=== PATIENT | female | born 1990 | race Caucasian/White ===

== ENCOUNTER → 2016-05-12 | Outpatient (CLI) | payer OTHER ==
[~2016-05-12] MED LIST: /ONDA4TA PO; /ONDA4TA SL; ACET30TAB PO; ACET50TA PO; AMOX250S53 PO; ANUS2.5C2 TOP; CELE10TA PO; COLA100C PO; CYCL10TA PO; CYCL10TA3 PO; DICL50TA2 PO; EFFE37.527 PO; IMOD2TAB16 PO; KDUR PO; LAMI25TA PO; MACR100C3 PO; MAGN400T5 PO; METH-107 PO; MOM30SS PO; MOTR200T44 PO; NORCOBULK PO; PERC5TAB8 PO; PERC7.5T8 PO; PREN27TA3 PO; PROM125TA PR; SUMA50TA2 PO; TIZA4CAP3 PO; TRAM50TA2 PO; TYLE167L PO; TYLENOL #3 ELIXIR PO; [UNRECOGNIZED DRUG - OTHER] AU; tylenol #3 PO
--- NOTE | 2016-05-13 11:24 | REP ---
Left ankle four views : There is no fracture or dislocation. Mineralization and joint spaces are normal. There are no calcifications or foreign bodies. Impression: Negative left ankle . Signed by Josh Morris MD 05/12/2016 05:04 P
== END ==
LOC: M WUC 16:43
PROVIDERS: ATTEND Physician Assistant
DX: S93.422A Sprain of deltoid ligament of left ankle, initial encounter (principal); W18.30XA Fall on same level, unspecified, initial encounter; Y92.009 Unspecified place in unspecified non-institutional (private) residence as the place of occurrence of the external cause

== ENCOUNTER 2017-03-08 22:09 | Emergency (ER) | payer OTHER ==
[~2017-03-08] VITALS: Ht 167.6 cm; Wt 100.0 kg
[~2017-03-08 22:09] MED LIST changes: +ADVI200T PO; +BENA25CA4 PO; -COLA100C PO; +COLA100C5 PO; +KEFL250C11 PO; -METH-107 PO; +METH1TAB40 PO; +PRED20TA PO
[2017-03-09] MEDS ORDERED: predniSONE 20 MG TAB PO ONE (03:45)
[2017-03-09] MEDS: IPRATROPIUM 0.5MG/ALBUTEROL 2.5MG INH SOL UD 3ML (DUONEB)(J7620) NEB SCH (03:59)
[2017-03-09] MEDS ORDERED: AZIT-12 PO (05:40)
[2017-03-09] MEDS ORDERED: PRED20TA PO (05:41)
[2017-03-09] MEDS ORDERED: ALBUTEROL 90 MCG/ACT 8GM HFA INHALER INH ONE (05:45)
[2017-03-09] MEDS ORDERED: AZITHROMYCIN 250 MG TAB PO ONE (05:45)
[2017-03-09 06:02] VITALS: BP 149/86
== END 2017-03-09 06:05 | disposition home or self-care (01) ==
LOC: M ED 22:09
DX: J20.9 Acute bronchitis, unspecified (principal); F17.200 Nicotine dependence, unspecified, uncomplicated; Z88.8 Allergy status to other drugs, medicaments and biological substances; Z88.2 Allergy status to sulfonamides

== ENCOUNTER 2017-04-20 17:50 | Emergency (ER) | payer OTHER ==
[2017-04-20] MEDS: ACETAMINOPHEN 325 MG TAB PO ×2 (18:57)
[2017-04-20] MEDS: CEPHALEXIN 500 MG CAP PO ×2 (18:57)
== END 2017-04-20 19:04 | disposition home or self-care (01) ==
LOC: M ED 17:50
DX: S80.861A Insect bite (nonvenomous), right lower leg, initial encounter (principal); L03.115 Cellulitis of right lower limb; W57.XXXA Bitten or stung by nonvenomous insect and other nonvenomous arthropods, initial encounter; Y92.89 Other specified places as the place of occurrence of the external cause; Y93.89 Activity, other specified; Y99.8 Other external cause status; J45.909 Unspecified asthma, uncomplicated; F43.10 Post-traumatic stress disorder, unspecified; F17.210 Nicotine dependence, cigarettes, uncomplicated; Z88.2 Allergy status to sulfonamides; Z88.8 Allergy status to other drugs, medicaments and biological substances
CPT/HCPCS: 87186; 87205

== ENCOUNTER 2017-08-20 11:22 | Emergency (ER) | payer OTHER ==
[2017-08-20] MEDS: KETOROLAC 60 MG/2 ML VIAL (J1885) IM (12:15)
[2017-08-20] MEDS: NORCO, ANEXSIA 5/325MG TABLET (HYDROcodone/ACETAMINOPHEN) PO (12:16)
[2017-08-20] MEDS: METHOCARBAMOL 500 MG TAB PO (12:31)
== END 2017-08-20 12:38 | disposition home or self-care (01) ==
LOC: M ED 11:22
DX: S16.1XXA Strain of muscle, fascia and tendon at neck level, initial encounter (principal); X50.0XXA Overexertion from strenuous movement or load, initial encounter; Y92.89 Other specified places as the place of occurrence of the external cause; J45.909 Unspecified asthma, uncomplicated; F17.210 Nicotine dependence, cigarettes, uncomplicated; Z88.8 Allergy status to other drugs, medicaments and biological substances; Z88.2 Allergy status to sulfonamides
CPT/HCPCS: J1885

== ENCOUNTER 2017-09-17 21:47 | Emergency (ER) | payer OTHER ==
[2017-09-18] MEDS: OXYCODONE/APAP 5MG/325MG(BULK FOR ED) 1 TABLET PO (03:42)
== END 2017-09-18 03:47 | disposition home or self-care (01) ==
LOC: M ED 21:47
DX: S89.92XA Unspecified injury of left lower leg, initial encounter (principal); X50.1XXA Overexertion from prolonged static or awkward postures, initial encounter; Y92.39 Other specified sports and athletic area as the place of occurrence of the external cause; E66.9 Obesity, unspecified; Z88.2 Allergy status to sulfonamides; Z88.8 Allergy status to other drugs, medicaments and biological substances
CPT/HCPCS: 73564

== ENCOUNTER 2018-06-05 07:47 | Emergency (ER) | payer OTHER ==
[~2018-06-05] VITALS: Ht 172.7 cm; Wt 136.8 kg
[~2018-06-05 07:47] MED LIST changes: +ALBU17IN2 INH; +AZIT-12 PO; +CYCL10TA; +EFFE37.5 PO; -EFFE37.527 PO; +IBUP80TA PO; +KEFL500C17 PO; +NORCOTAB PO; +PERC5TAB12 PO; +ROBA500T PO; +TIZA4CAP PO; -TIZA4CAP3 PO; +TYLE325T5 PO
[2018-06-05] MEDS ORDERED: FLUO10TA2 PO (07:52)
[2018-06-05] MEDS ORDERED: MECLIZINE 25 MG TABLET PO ONE (08:15)
[2018-06-05] MEDS ORDERED: ONDANSETRON 4 MG ORAL DISINTEGRATING TAB (Q0162 PER 1MG) PO ONE (08:15)
[2018-06-05] MEDS ORDERED: diazePAM 2 MG TAB PO ONE (10:00)
[2018-06-05 10:37] VITALS: BP 111/58
[2018-06-05] MEDS ORDERED: ONDA4TAB6 PO (10:37)
[2018-06-05] MEDS ORDERED: MECL-68 PO (10:37)
== END 2018-06-05 10:43 | disposition home or self-care (01) ==
LOC: M ED 07:47
DX: H81.10 Benign paroxysmal vertigo, unspecified ear (principal); F32.9 Major depressive disorder, single episode, unspecified; F17.200 Nicotine dependence, unspecified, uncomplicated; Z88.8 Allergy status to other drugs, medicaments and biological substances; Z88.2 Allergy status to sulfonamides; Z79.899 Other long term (current) drug therapy
CPT/HCPCS: 81025; 99284; Q0162

== ENCOUNTER 2018-08-02 19:30 | Emergency (ER) | payer OTHER ==
[~2018-08-02] VITALS: Ht 167.6 cm; Wt 145.4 kg
[~2018-08-02 19:30] MED LIST changes: -/ONDA4TA PO; -/ONDA4TA SL; +ACET-716 PO; -ACET30TAB PO; -ACET50TA PO; +FLUO10TA2 PO; +HYDR-3715 PO; +MAPA500T17 PO; +MECL-68 PO; -NORCOTAB PO; +ONDA-1 PO; +ONDA-1 SL; +ONDA4TAB6 PO
[2018-08-02] MEDS ORDERED: TRAZ-160 (19:38)
[2018-08-02] MEDS ORDERED: hydrOXYzine 50 MG TAB PO STA (21:32)
[2018-08-02] MEDS ORDERED: methylPREDNISolone INJ 125 MG/2 ML VIAL (J2930) IM ONE (21:45)
[2018-08-02 21:54] LABS: BASO % 0.1 % (0.0-1.0); EOS # 0.1 10^3/uL (0.0-0.50); EOS % 1.8 % (0.0-3.0); LYMPH # 3.1 10^3/uL (1.5-6.5); MEAN CORPUSCULAR HEMOGLOBIN 29.4 pg (27.0-33.0); MEAN CORPUSCULAR HGB CONC 32.6 g/dl (32.0-36.5); MEAN CORPUSCULAR VOLUME 90.3 fl (80.0-96.0); MONO # 0.3 10^3/uL (0.0-0.8); MONO % 4.1 % (0.0-5.0); NEUTROPHILS # 4.2 10^3/uL (1.8-7.7); NEUTROPHILS % 53.7 % (36.0-66.0); PLATELET COUNT, AUTOMATED 260 10^3/uL (150-450); RED BLOOD COUNT 4.76 10^6/uL (4.00-5.40); WHITE BLOOD COUNT 7.8 10^3/uL (4.0-10.0)
[2018-08-02 22:18] LABS: ALBUMIN 3.6 GM/DL (3.2-5.2); ALT/SGPT 28 U/L (12-78); BILIRUBIN,DIRECT < 0.1 MG/DL (0.0-0.2); BILIRUBIN,TOTAL 0.3 MG/DL (0.2-1.0); BLOOD UREA NITROGEN 12 MG/DL (7-18); CALCIUM LEVEL 8.9 MG/DL (8.5-10.1); CARBON DIOXIDE LEVEL 25 MEQ/L (21-32); CHLORIDE LEVEL 109 MEQ/L (98-107); CREATININE FOR GFR 0.96 MG/DL (0.55-1.30); GLOMERULAR FILTRATION RATE > 60.0 (>60); GLUCOSE, FASTING 91 MG/DL (70-100); POTASSIUM SERUM 3.8 MEQ/L (3.5-5.1); SODIUM LEVEL 142 MEQ/L (136-145)
[2018-08-02] MEDS ORDERED: MEDR4PAK PO (22:48)
[2018-08-02] MEDS ORDERED: HYDR-3363 PO (22:48)
[2018-08-02 23:00] VITALS: BP 138/84
== END 2018-08-02 23:16 | disposition home or self-care (01) ==
LOC: M ED 19:30
DX: L29.9 Pruritus, unspecified (principal); Z79.899 Other long term (current) drug therapy; Z88.2 Allergy status to sulfonamides; Z88.8 Allergy status to other drugs, medicaments and biological substances
CPT/HCPCS: 80048; 80076; 85025; 96372; 99284; J2930

== ENCOUNTER 2018-09-29 10:17 | Emergency (ER) | payer OTHER ==
[~2018-09-29] VITALS: Ht 167.6 cm; Wt 128.2 kg
[~2018-09-29 10:17] MED LIST changes: +HYDR-3363 PO; +MEDR4PAK PO; +TRAZ-252
[2018-09-29] MEDS ORDERED: BUTA-198 (10:23)
[2018-09-29] MEDS ORDERED: SUMA100T2 (10:23)
[2018-09-29 11:18] LABS: BASO % 0.2 % (0.0-1.0); EOS # 0.2 10^3/uL (0.0-0.50); EOS % 2.1 % (0.0-3.0); HEMATOCRIT 42.2 % (36.0-47.0); HEMOGLOBIN 13.8 g/dl (12.0-15.5); LYMPH # 2.3 10^3/uL (1.5-6.5); LYMPH % 27.8 % (24.0-44.0); MEAN CORPUSCULAR HEMOGLOBIN 30.1 pg (27.0-33.0); MEAN CORPUSCULAR HGB CONC 32.7 g/dl (32.0-36.5); MEAN CORPUSCULAR VOLUME 91.9 fl (80.0-96.0); MONO # 0.3 10^3/uL (0.0-0.8); MONO % 3.7 % (0.0-5.0); NEUTROPHILS # 5.4 10^3/uL (1.8-7.7); PLATELET COUNT, AUTOMATED 288 10^3/uL (150-450); RED BLOOD COUNT 4.59 10^6/uL (4.00-5.40); WHITE BLOOD COUNT 8.2 10^3/uL (4.0-10.0)
[2018-09-29] MEDS ORDERED: ONDANSETRON 4MG/2ML VIAL (J2405) IV ONE (11:30)
[2018-09-29] MEDS ORDERED: KETOROLAC 30 MG/ML VIAL (J1885) IV ONE (11:30)
[2018-09-29 11:57] LABS: ALBUMIN 3.7 GM/DL (3.2-5.2); ALT/SGPT 38 U/L (12-78); BILIRUBIN,DIRECT < 0.1 MG/DL (0.0-0.2); BILIRUBIN,TOTAL 0.3 MG/DL (0.2-1.0); BLOOD UREA NITROGEN 9 MG/DL (7-18); CALCIUM LEVEL 9.2 MG/DL (8.5-10.1); CARBON DIOXIDE LEVEL 24 MEQ/L (21-32); CHLORIDE LEVEL 109 MEQ/L (98-107); CREATININE FOR GFR 0.88 MG/DL (0.55-1.30); GLOMERULAR FILTRATION RATE > 60.0 (>60); GLUCOSE, FASTING 86 MG/DL (70-100); LIPASE 81 U/L (73-393); SODIUM LEVEL 139 MEQ/L (136-145); TOTAL PROTEIN 7.5 GM/DL (6.4-8.2)
[2018-09-29 13:06] VITALS: BP 135/80
--- NOTE | 2018-09-29 13:32 | REP ---
PELVIC ULTRASOUND: Real-time sonographic evaluation of pelvis performed utilizing transabdominal and endovaginal technique. Bladder measures 2.5 x 4.9 x 4.0 cm. Uterus measures 8.8 x 4.7 x 5.5 cm. Endometrial thickness is 5 mm. There is no endometrial fluid collection. The ovaries are normal in size and echotexture, right ovary measuring 2.1 x 1.5 x 1.7 cm, and left ovary 2.4 x 1.9 x 2.1 cm. There is no adnexal mass or free fluid. There is no torsion of either ovary, RI right ovary 0.50 and left ovary 0.45. IMPRESSION: Negative pelvic ultrasound with no evidence of adnexal mass, free fluid, or torsion. Electronically Signed by Josh Boyd MD 09/29/2018 04:32 P
== END 2018-09-29 13:06 | disposition home or self-care (01) ==
LOC: M ED 10:17
DX: N94.6 Dysmenorrhea, unspecified (principal); N92.0 Excessive and frequent menstruation with regular cycle; F17.210 Nicotine dependence, cigarettes, uncomplicated; Z87.42 Personal history of other diseases of the female genital tract; Z87.440 Personal history of urinary (tract) infections; Z88.2 Allergy status to sulfonamides; Z88.8 Allergy status to other drugs, medicaments and biological substances; Z90.49 Acquired absence of other specified parts of digestive tract; Z90.89 Acquired absence of other organs
CPT/HCPCS: 36415; 76830; 76856; 80048; 80076; 81001; 83690; 84702; 85025; 93976; 96374; 96375; 99284; J1885; J2405

== ENCOUNTER 2018-10-10 11:49 | Emergency (ER) | payer OTHER ==
[~2018-10-10] VITALS: Ht 167.6 cm; Wt 141.8 kg
[~2018-10-10 11:49] MED LIST changes: +BUTA-198; +SUMA100T2
[2018-10-10] MEDS ORDERED: diazePAM 5 MG TAB PO ONE (12:30)
[2018-10-10] MEDS ORDERED: methylPREDNISolone INJ 125 MG/2 ML VIAL (J2930) IM ONE (12:30)
[2018-10-10] MEDS ORDERED: KETOROLAC 30 MG/ML VIAL (J1885) IM ONE (12:30)
[2018-10-10] MEDS ORDERED: LIDOCAINE 5% (LIDODERM) PATCH TD ONE (12:30)
[2018-10-10] MEDS ORDERED: ACETAMINOPHEN 500 MG TAB PO ONE (12:30)
[2018-10-10] MEDS ORDERED: LIDO5DIS41 TOP (13:38)
[2018-10-10] MEDS ORDERED: VALI5TAB PO (13:38)
[2018-10-10] MEDS ORDERED: MEDR4PAK PO (13:38)
[2018-10-10 14:00] VITALS: BP 131/71
== END 2018-10-10 14:01 | disposition home or self-care (01) ==
LOC: M ED 11:49
DX: M51.27 Other intervertebral disc displacement, lumbosacral region (principal); M54.32 Sciatica, left side; F43.10 Post-traumatic stress disorder, unspecified; G43.909 Migraine, unspecified, not intractable, without status migrainosus; Z88.2 Allergy status to sulfonamides; Z88.1 Allergy status to other antibiotic agents; Z88.8 Allergy status to other drugs, medicaments and biological substances
CPT/HCPCS: 96372; 99283; J1885; J2930

== ENCOUNTER 2018-11-23 17:12 | Emergency (ER) | payer OTHER ==
[~2018-11-23] VITALS: Ht 167.6 cm; Wt 140.0 kg
[~2018-11-23 17:12] MED LIST changes: +LIDO5DIS41 TOP; +VALI5TAB PO
[2018-11-23] MEDS ORDERED: ESCI20TA (17:22)
[2018-11-23] MEDS ORDERED: diphenhydrAMINE INJ 50MG/ML VIAL (J1200) IV ONE (20:00)
[2018-11-23] MEDS ORDERED: ONDANSETRON 4MG/2ML VIAL (J2405) IV ONE (20:00)
[2018-11-23] MEDS ORDERED: NS 1,000 ML IV ONE (20:00)
[2018-11-23] MEDS ORDERED: KETOROLAC 30 MG/ML VIAL (J1885) IV ONE (20:00)
[2018-11-23 21:03] LABS: BASO % 0.3 % (0.0-1.0); EOS # 0.2 10^3/uL (0.0-0.50); EOS % 2.5 % (0.0-3.0); HEMATOCRIT 40.9 % (36.0-47.0); HEMOGLOBIN 13.3 g/dl (12.0-15.5); LYMPH # 3.6 10^3/uL (1.5-6.5); LYMPH % 38.1 % (24.0-44.0); MEAN CORPUSCULAR HEMOGLOBIN 29.4 pg (27.0-33.0); MEAN CORPUSCULAR HGB CONC 32.5 g/dl (32.0-36.5); MEAN CORPUSCULAR VOLUME 90.5 fl (80.0-96.0); MONO # 0.5 10^3/uL (0.0-0.8); MONO % 4.8 % (0.0-5.0); NEUTROPHILS # 5.1 10^3/uL (1.8-7.7); NEUTROPHILS % 54.1 % (36.0-66.0); PLATELET COUNT, AUTOMATED 241 10^3/uL (150-450); RED BLOOD COUNT 4.52 10^6/uL (4.00-5.40); WHITE BLOOD COUNT 9.5 10^3/uL (4.0-10.0)
[2018-11-23 21:27] LABS: BLOOD UREA NITROGEN 8 MG/DL (7-18); CALCIUM LEVEL 9.8 MG/DL (8.5-10.1); CARBON DIOXIDE LEVEL 25 MEQ/L (21-32); CHLORIDE LEVEL 110 MEQ/L (98-107); CREATININE FOR GFR 0.92 MG/DL (0.55-1.30); FREE T4 0.89 NG/DL (0.76-1.46); GLOMERULAR FILTRATION RATE > 60.0 (>60); GLUCOSE, FASTING 77 MG/DL (70-100); MAGNESIUM LEVEL 2.4 MG/DL (1.8-2.4); SODIUM LEVEL 142 MEQ/L (136-145)
--- NOTE | 2018-11-23 21:48 | REPVR ---
EXAM: CT Head Without Contrast EXAM DATE/TIME: 11/23/2018 8:31 PM CLINICAL HISTORY: 28 years old, female; Pain; Headache; Additional info: Severe headache/vision changes TECHNIQUE: Imaging protocol: Computed tomography images of the head without contrast. Radiation optimization: All CT scans at this facility use at least one of these dose optimization techniques: automated exposure control; mA and/or kV adjustment per patient size (includes targeted exams where dose is matched to clinical indication); or iterative reconstruction. COMPARISON: CT Head without contrast 04/02/2013 5:20 PM FINDINGS: Brain: The white-martin differentiation is preserved demonstrating no acute territorial type infarct. No acute intracranial hemorrhage is seen. No intracranial mass effect. Midline shift: There is no midline shift. Ventricles: No ventriculomegaly. Bones/joints: The calvarium demonstrates no evidence for a depressed fracture. Sinuses: Minimal mucosal thickening of a few ethmoid air cells. Mastoid air cells: Minimal mucosal thickening/effusion within right mastoid air cells inferiorly. Orbits: The optic nerves have mildly increased in diameter compared to the prior study. The right optic nerve measures 6-7 mm. This can be contributed by an increase in fluid within the optic nerve sheath. Soft tissues: Unremarkable. IMPRESSION: 1. No acute intracranial hemorrhage or acute territorial type infarct. 2. The optic nerves have mildly increased in diameter compared to the prior study. MRI of the orbits with/without contrast is suggested. 3. Additional findings described above. Electronically signed by: Trevon Torres On 11/23/2018 21:48:35 PM
[2018-11-23 22:29] LABS: C REACTIVE PROTEIN QUANTITATIV 1.14 MG/DL (0.00-0.30)
[2018-11-23 22:48] LABS: ERYTHROCYTE SEDIMENTATION RATE 4 mm/hr (0-20)
[2018-11-24 02:52] VITALS: BP 22/60
[2018-11-24] MEDS ORDERED: NORCO, ANEXSIA 5/325MG TABLET (HYDROcodone/ACETAMINOPHEN) PO ONE (03:00)
== END 2018-11-24 02:56 | disposition short-term general hospital (02) ==
LOC: M ED 17:12
DX: R51 Headache (principal); H54.511A Low vision right eye category 1, normal vision left eye; G43.909 Migraine, unspecified, not intractable, without status migrainosus; F43.10 Post-traumatic stress disorder, unspecified; F41.9 Anxiety disorder, unspecified; F32.9 Major depressive disorder, single episode, unspecified; Z79.899 Other long term (current) drug therapy; Z88.2 Allergy status to sulfonamides; Z88.8 Allergy status to other drugs, medicaments and biological substances
CPT/HCPCS: 70450; 80048; 81001; 83735; 84439; 84443; 85025; 85652; 86140; 96374; 96375; 99284; J1200; J1885; J2405

== ENCOUNTER → 2019-04-02 | Outpatient (CLI) | payer OTHER ==
[~2019-04-02] MED LIST changes: -ALBU17IN2 INH; +ESCI20TA; +PROHANCE 279.3MG/ML 15ML VIAL (A9576) As Ordered ONE; +PROHANCE 279.3MG/ML 5ML VIAL (A9576) As Ordered ONE; +PROV108A INH
--- NOTE | 2019-04-02 16:58 | REP ---
MRI brain: 04/02/2019. Indication: Optic neuritis. Headache. Comparison: No previous MRI brain studies are available for direct comparison. Technique: Multiplanar short and long TR sequences of the brain were performed including IV Gadolinium imaging. 20 ml of IV ProHance were administered. Findings: There are no areas of restricted diffusion. There is no intracranial mass effect, hydrocephalus or significant hemorrhage. No significant signal abnormalities are present within the brainstem or brain parenchyma. The large intracranial flow voids are unremarkable. No significant fluid is present within the paranasal sinuses or mastoid air cells. The midline structures, and craniocervical junction are unremarkable. Impression: No acute intracranial process. Unremarkable brain. Electronically Signed by Mohan Sanderson DO 04/02/2019 04:50 P
== END ==
LOC: M RAD 14:39
PROVIDERS: ATTEND Nurse Practitioner Family
DX: G43.009 Migraine without aura, not intractable, without status migrainosus (principal); F41.1 Generalized anxiety disorder; G47.09 Other insomnia; H46.8 Other optic neuritis
CPT/HCPCS: 70553; A9576

== ENCOUNTER 2019-05-18 10:48 | Emergency (ER) | payer OTHER ==
[~2019-05-18] VITALS: Ht 167.6 cm; Wt 143.6 kg
[~2019-05-18 10:48] MED LIST changes: -MECL-68 PO; +MECL1TAB31 PO; -PROHANCE 279.3MG/ML 15ML VIAL (A9576) As Ordered ONE; -PROHANCE 279.3MG/ML 5ML VIAL (A9576) As Ordered ONE
[2019-05-18] MEDS ORDERED: KETOROLAC 30 MG/ML VIAL (J1885) IV ONE (12:00)
[2019-05-18] MEDS ORDERED: ONDANSETRON 4MG/2ML VIAL (J2405) IV ONE (12:00)
[2019-05-18] MEDS ORDERED: PERCOCET 5MG/325MG TAB PO ONE (13:30)
[2019-05-18 13:31] LABS: BASO % 0.3 % (0.0-1.0); EOS # 0.2 10^3/uL (0.0-0.5); EOS % 2.3 % (0.0-3.0); HEMATOCRIT 46.3 % (36.0-47.0); HEMOGLOBIN 14.5 g/dl (12.0-15.5); LYMPH # 2.2 10^3/uL (1.5-5.0); LYMPH % 29.3 % (24.0-44.0); MEAN CORPUSCULAR HEMOGLOBIN 29.1 pg (27.0-33.0); MEAN CORPUSCULAR HGB CONC 31.3 g/dl (32.0-36.5); MEAN CORPUSCULAR VOLUME 92.8 fl (80.0-96.0); MONO # 0.3 10^3/uL (0.0-0.8); MONO % 4.6 % (0.0-5.0); NEUTROPHILS # 4.7 10^3/uL (1.5-8.5); NEUTROPHILS % 63.1 % (36.0-66.0); PLATELET COUNT, AUTOMATED 283 10^3/uL (150-450); RED BLOOD COUNT 4.99 10^6/uL (4.00-5.40); WHITE BLOOD COUNT 7.5 10^3/uL (4.0-10.0)
[2019-05-18 13:41] LABS: BLOOD UREA NITROGEN 8 MG/DL (7-18); C REACTIVE PROTEIN QUANTITATIV 0.85 MG/DL (0.00-0.30); CALCIUM LEVEL 9.1 MG/DL (8.5-10.1); CARBON DIOXIDE LEVEL 26 MEQ/L (21-32); CHLORIDE LEVEL 109 MEQ/L (98-107); CREATININE FOR GFR 0.68 MG/DL (0.55-1.30); GLOMERULAR FILTRATION RATE > 60.0 (>60); GLUCOSE, FASTING 82 MG/DL (70-100); POTASSIUM SERUM 4.1 MEQ/L (3.5-5.1); SODIUM LEVEL 139 MEQ/L (136-145)
[2019-05-18 14:09] LABS: ERYTHROCYTE SEDIMENTATION RATE 6 mm/hr (0-20)
[2019-05-18] MEDS ORDERED: PERC5TAB12 PO (14:26)
[2019-05-18] MEDS ORDERED: methylPREDNISolone 1,000 MG, VIAL MATE ADAPTER 1 EACH in D5W 250 ML IV ONE (14:30)
[2019-05-18 16:22] VITALS: BP 128/71
== END 2019-05-18 16:23 | disposition home or self-care (01) ==
LOC: M ED 10:48
DX: H46.9 Unspecified optic neuritis (principal); Z79.899 Other long term (current) drug therapy; Z88.2 Allergy status to sulfonamides; Z88.8 Allergy status to other drugs, medicaments and biological substances
CPT/HCPCS: 80048; 85025; 85652; 86140; 96365; 96375; 99284; J1885; J2405; J2930

== ENCOUNTER 2019-05-23 04:13 | Emergency (ER) | payer OTHER ==
[~2019-05-23] VITALS: Ht 167.6 cm; Wt 141.8 kg
[2019-05-23 04:52] LABS: HEMATOCRIT 46.2 % (36.0-47.0); HEMOGLOBIN 14.7 g/dl (12.0-15.5); MEAN CORPUSCULAR HEMOGLOBIN 28.8 pg (27.0-33.0); MEAN CORPUSCULAR HGB CONC 31.8 g/dl (32.0-36.5); MEAN CORPUSCULAR VOLUME 90.6 fl (80.0-96.0); PLATELET COUNT, AUTOMATED 264 10^3/uL (150-450); WHITE BLOOD COUNT 9.9 10^3/uL (4.0-10.0)
[2019-05-23 05:21] LABS: ALBUMIN 3.6 GM/DL (3.2-5.2); ALT/SGPT 31 U/L (12-78); BILIRUBIN,TOTAL 0.4 MG/DL (0.2-1.0); BLOOD UREA NITROGEN 12 MG/DL (7-18); CARBON DIOXIDE LEVEL 24 MEQ/L (21-32); CHLORIDE LEVEL 107 MEQ/L (98-107); CREATININE FOR GFR 0.83 MG/DL (0.55-1.30); GLOMERULAR FILTRATION RATE > 60.0 (>60); GLUCOSE, FASTING 94 MG/DL (70-100); POTASSIUM SERUM 4.1 MEQ/L (3.5-5.1); SODIUM LEVEL 140 MEQ/L (136-145); TOTAL PROTEIN 7.4 GM/DL (6.4-8.2)
[2019-05-23] MEDS ORDERED: IBUPROFEN 800 MG TAB PO ONE (07:30)
[2019-05-23] MEDS ORDERED: IPRATROPIUM 0.5MG/ALBUTEROL 2.5MG INH SOL UD 3ML (DUONEB)(J7620) NEB ONE (07:30)
--- NOTE | 2019-05-23 08:43 | REP ---
Clinical: Shortness of breath Comparison: None . Technique: PA and lateral. Findings: The mediastinum and cardiac silhouette are normal. The lung donnelly are clear and without acute consolidation, effusion, or pneumothorax. The skeletal structures are intact and normal. Impression: 1. No acute cardiopulmonary process. Electronically Signed by Romain Scott MD 05/23/2019 08:35 A
[2019-05-23 09:30] VITALS: BP 119/64
== END 2019-05-23 09:44 | disposition home or self-care (01) ==
LOC: M ED 04:13
DX: J11.1 Influenza due to unidentified influenza virus with other respiratory manifestations (principal); J45.909 Unspecified asthma, uncomplicated; F17.210 Nicotine dependence, cigarettes, uncomplicated; Z88.2 Allergy status to sulfonamides; Z88.8 Allergy status to other drugs, medicaments and biological substances; Z79.899 Other long term (current) drug therapy

== ENCOUNTER → 2019-06-16 | Outpatient (CLI) | payer OTHER ==
[~2019-06-16] MED LIST changes: +ACETAMINOPHEN 325 MG TAB As Ordered ONE; +ACETAMINOPHEN 325 MG TAB PO PRN; +ACETAMINOPHEN TAB 650MG DOSE (2X325MG) PO PRN; +DICL50TAB FT; +LIDOCAINE 1% MDV 20ML VIAL As Ordered ONE
[2019-06-16 12:01] LABS: INR 1.01
[2019-06-16 12:02] LABS: PARTIAL THROMBOPLASTIN TIME 34.2 SECONDS (25.0-38.4)
--- NOTE | 2019-06-16 14:09 | REP ---
Lumbar puncture under fluoroscopic guidance. The procedure was performed by KYLEE Angel, under the direct supervision of Dr. Page. Procedure: The risks and benefits of the procedure were explained to the patient and informed consent was obtained both verbally and written. Directly prior to the start of the procedure, a formal timeout was completed in the procedure room. The patient was placed prone on the fluoroscopy table. The L3-4 interspinous level was localized and confirmed fluoroscopically, and the skin was marked dorsally at this level. The skin was prepped and draped in the usual sterile fashion. 5 mL of 1% lidocaine 10 mg/ml was utilized for local anesthetic. An 22 gauge 7 inch spinal needle was advanced without significant difficulty into the cerebrospinal space at the L 3-4 interspinous level. Clear freely flowing cerebrospinal fluid was retrieved and sent to the laboratory for analysis. Initial opening pressure measured by manometry at 42 cm of water. A total of approximately 13 ml of cerebrospinal fluid was withdrawn gently and submitted to the lab for routine analysis. The patient tolerated the procedure well and there were no immediate complications. 0.3 minutes of fluoroscopy time was utilized for this procedure. Reviewed by KYLEE Arzate 06/16/2019 01:59 P Electronically Signed by Tuan Page MD 06/16/2019 01:59 P
[2019-06-16 14:30] VITALS: BP 148/72
[2019-06-16 15:32] LABS: CSF TUBE# GLU TUBE 1; CSF TUBE# TP TUBE 1; GLUCOSE CSF 56 MG/DL (40-75); TOTAL PROTEIN,CSF 27 MG/DL (15-45)
[2019-06-16 15:37] LABS: SOURCE, BODY FLUID ALBUMIN OTHER
[2019-06-16 15:57] LABS: APPEARANCE, CSF CLEAR (CLEAR); COLOR, CSF COLORLESS (COLORLESS); CSF TUBE# CELL CNT TUBE 1
[2019-06-21 14:10] LABS: IMMUNOGLOBULIN M CSF <0.01 mg/dL (0.00-0.26)
== END ==
LOC: M IRPRO 11:08
PROVIDERS: ATTEND Psychiatry & Neurology Neurology
DX: H47.11 Papilledema associated with increased intracranial pressure (principal); G93.2 Benign intracranial hypertension

== ENCOUNTER 2019-08-19 14:13 | Emergency (ER) | payer OTHER ==
[~2019-08-19] VITALS: Ht 167.6 cm; Wt 143.5 kg
[~2019-08-19 14:13] MED LIST changes: -ACETAMINOPHEN 325 MG TAB As Ordered ONE; -ACETAMINOPHEN 325 MG TAB PO PRN; -ACETAMINOPHEN TAB 650MG DOSE (2X325MG) PO PRN; +CYCL-707; +CYCL-707 PO; -CYCL10TA; -CYCL10TA PO; -LIDOCAINE 1% MDV 20ML VIAL As Ordered ONE
[2019-08-19] MEDS ORDERED: ACET50CA PO (14:21)
[2019-08-19 15:45] VITALS: BP 127/68
== END 2019-08-19 15:50 | disposition home or self-care (01) ==
LOC: M ED 14:13
DX: H43.391 Other vitreous opacities, right eye (principal); H46.9 Unspecified optic neuritis; G43.909 Migraine, unspecified, not intractable, without status migrainosus; J45.909 Unspecified asthma, uncomplicated; F43.10 Post-traumatic stress disorder, unspecified; F41.9 Anxiety disorder, unspecified; Z88.2 Allergy status to sulfonamides; Z88.8 Allergy status to other drugs, medicaments and biological substances

== ENCOUNTER → 2019-09-30 | Outpatient (REF) | payer OTHER, MEDICAID ==
[~2019-09-30] MED LIST changes: +ACET50CA PO
[2019-09-30 11:33] LABS: BASO % 0.3 % (0.0-1.0); EOS # 0.5 10^3/uL (0.0-0.5); EOS % 7.4 % (0.0-3.0); HEMATOCRIT 42.7 % (36.0-47.0); HEMOGLOBIN 13.9 g/dl (12.0-15.5); LYMPH # 2.4 10^3/uL (1.5-5.0); LYMPH % 37.5 % (24.0-44.0); MEAN CORPUSCULAR HEMOGLOBIN 29.8 pg (27.0-33.0); MEAN CORPUSCULAR HGB CONC 32.6 g/dl (32.0-36.5); MEAN CORPUSCULAR VOLUME 91.6 fl (80.0-96.0); MONO # 0.4 10^3/uL (0.0-0.8); MONO % 6.3 % (0.0-5.0); NEUTROPHILS # 3.1 10^3/uL (1.5-8.5); NEUTROPHILS % 48.2 % (36.0-66.0); PLATELET COUNT, AUTOMATED 259 10^3/uL (150-450); RED BLOOD COUNT 4.66 10^6/uL (4.00-5.40); WHITE BLOOD COUNT 6.5 10^3/uL (4.0-10.0)
[2019-09-30 17:57] LABS: ALBUMIN 3.5 GM/DL (3.2-5.2); ALT/SGPT 24 U/L (12-78); BILIRUBIN,TOTAL 0.5 MG/DL (0.2-1.0); BLOOD UREA NITROGEN 8 MG/DL (7-18); CALCIUM LEVEL 8.8 MG/DL (8.5-10.1); CARBON DIOXIDE LEVEL 25 MEQ/L (21-32); CHLORIDE LEVEL 110 MEQ/L (98-107); CHOLESTEROL LEVEL 145 MG/DL (<200); CREATININE FOR GFR 0.77 MG/DL (0.55-1.30); FREE T4 1.06 NG/DL (0.76-1.46); GLOMERULAR FILTRATION RATE > 60.0 (>60); GLUCOSE, FASTING 103 MG/DL (70-100); HDL CHOLESTEROL 50 MG/DL (>40); LDL CHOLESTEROL 85 MG/DL (<100); NON-HDL-C 95 MG/DL; POTASSIUM SERUM 3.9 MEQ/L (3.5-5.1); SODIUM LEVEL 142 MEQ/L (136-145); TOTAL PROTEIN 6.5 GM/DL (6.4-8.2); TRIGLYCERIDES LEVEL 49 MG/DL (<150)
[2019-10-01 17:51] LABS: TOTAL 25(OH) VITAMIN D 25.1 NG/ML (30.0-100.0)
== END ==
LOC: M LAB REF 11:09
PROVIDERS: ATTEND Physician Assistant
DX: Z13.9 Encounter for screening, unspecified (principal); Z68.42 Body mass index [BMI] 45.0-49.9, adult; H46.8 Other optic neuritis; F41.9 Anxiety disorder, unspecified; J45.909 Unspecified asthma, uncomplicated; G47.00 Insomnia, unspecified; E66.09 Other obesity due to excess calories; R03.0 Elevated blood-pressure reading, without diagnosis of hypertension; E55.9 Vitamin D deficiency, unspecified

== ENCOUNTER → 2019-11-10 | Outpatient (CLI) | payer OTHER ==
[2020-01-31 14:54] LABS: GLUCOSE, FASTING SEE SEPARATE REPORT
== END ==
LOC: M LAB 10:00
PROVIDERS: ATTEND Physician Assistant
DX: R60.1 Generalized edema (principal)

== ENCOUNTER 2019-11-19 17:50 | Emergency (ER) | payer OTHER ==
[2019-11-19] MEDS ORDERED: ONDANSETRON 4MG/2ML VIAL ONE (17:51)
[2019-11-19] MEDS ORDERED: MORPHINE 4 MG/ML 1ML VIAL/SYRINGE (J2270) ONE (17:51)
[2019-11-19] MEDS ORDERED: ONDANSETRON 4MG/2ML VIAL As Ordered ONE (17:56)
[2019-11-19] MEDS ORDERED: MORPHINE 4 MG/ML 1ML VIAL/SYRINGE (J2270) As Ordered ONE (17:56)
[2020-01-02 16:33] LABS: BASO % 0.1 % (0.0-1.0); EOS # 0.2 10^3/uL (0.0-0.5); EOS % 2.2 % (0.0-3.0); HEMOGLOBIN 14.1 g/dl (12.0-15.5); LYMPH # 2.3 10^3/uL (1.5-5.0); LYMPH % 27.7 % (24.0-44.0); MEAN CORPUSCULAR HEMOGLOBIN 29.5 pg (27.0-33.0); MEAN CORPUSCULAR VOLUME 92.1 fl (80.0-96.0); MONO # 0.4 10^3/uL (0.0-0.8); MONO % 4.2 % (0.0-5.0); NEUTROPHILS # 5.4 10^3/uL (1.5-8.5); NEUTROPHILS % 65.6 % (36.0-66.0); PLATELET COUNT, AUTOMATED 233 10^3/uL (150-450); RED BLOOD COUNT 4.78 10^6/uL (4.00-5.40); WHITE BLOOD COUNT 8.3 10^3/uL (4.0-10.0)
[2020-01-02 20:41] LABS: APPEARANCE, URINE HAZY (CLEAR); BACTERIA, URINE AUTO NEGATIVE (NEGATIVE); BILIRUBIN, URINE AUTO NEGATIVE (NEGATIVE); BLOOD, URINE BLOOD NEGATIVE (NEGATIVE); COLOR, URINE YELLOW (YELLOW); GLUCOSE, URINE (UA) AUTO NEGATIVE (NEGATIVE); KETONE, URINE AUTO NEGATIVE (NEGATIVE); LEUKOCYTE ESTERASE, URINE AUTO NEGATIVE (NEGATIVE); MUCUS, URINE LARGE (NEGATIVE); NITRITE, URINE AUTO NEGATIVE (NEGATIVE); PROTEIN, URINE AUTO NEGATIVE (NEGATIVE); RBC, URINE AUTO 4 /HPF (0-3); SPECIFIC GRAVITY URINE AUTO 1.026 (1.002-1.035); SQUAMOUS EPITHELIAL CELL UR AU 2 /HPF (0-6); UROBILINOGEN, URINE AUTO 0.2 mg/dL (0.0-2.0); WBC, URINE AUTO 21 /HPF (0-3)
[2020-02-07 12:38] LABS: ALBUMIN 3.8 GM/DL (3.2-5.2); ALT/SGPT 21 U/L (12-78); BILIRUBIN,DIRECT 0.1 MG/DL (0.0-0.2); BILIRUBIN,TOTAL 0.5 MG/DL (0.2-1.0); BLOOD UREA NITROGEN 6 MG/DL (7-18); CALCIUM LEVEL 9.3 MG/DL (8.5-10.1); CARBON DIOXIDE LEVEL 26 MEQ/L (21-32); CHLORIDE LEVEL 109 MEQ/L (98-107); CREATININE FOR GFR 0.78 MG/DL (0.55-1.30); GLOMERULAR FILTRATION RATE > 60.0 (>60); GLUCOSE, FASTING 78 MG/DL (70-100); LIPASE 57 U/L (73-393); POTASSIUM SERUM 4.1 MEQ/L (3.5-5.1); SODIUM LEVEL 140 MEQ/L (136-145); TOTAL PROTEIN 7.2 GM/DL (6.4-8.2)
[2020-02-07 12:49] LABS: HCG, SERUM QUALITATIVE NEGATIVE (NEGATIVE)
== END 2019-11-19 20:24 | disposition home or self-care (01) ==
LOC: M ED 17:50
DX: R10.2 Pelvic and perineal pain (principal); J45.909 Unspecified asthma, uncomplicated; G93.2 Benign intracranial hypertension
CPT/HCPCS: 76830; 76856; 80048; 80076; 81001; 83690; 84703; 85025; 93976; 96374; 96375; 99284; J2270; J2405

== ENCOUNTER → 2020-02-15 | Outpatient (REF) | payer OTHER ==
[2020-02-15 17:29] LABS: BLOOD UREA NITROGEN 7 MG/DL (7-18); CALCIUM LEVEL 9.7 MG/DL (8.5-10.1); CARBON DIOXIDE LEVEL 21 MEQ/L (21-32); CHLORIDE LEVEL 112 MEQ/L (98-107); CREATININE FOR GFR 0.78 MG/DL (0.55-1.30); GLOMERULAR FILTRATION RATE > 60.0 (>60); GLUCOSE, FASTING 83 MG/DL (70-100); POTASSIUM SERUM 4.7 MEQ/L (3.5-5.1); SODIUM LEVEL 139 MEQ/L (136-145)
[2020-02-15 17:39] LABS: TOTAL 25(OH) VITAMIN D 22.5 NG/ML (30.0-100.0)
[2020-02-15 22:35] LABS: HEMOGLOBIN A1c 5.2 %
== END ==
LOC: M LAB REF 16:23
PROVIDERS: ATTEND Physician Assistant
DX: R73.01 Impaired fasting glucose (principal); E55.9 Vitamin D deficiency, unspecified

== ENCOUNTER 2020-04-02 16:39 | Emergency (ER) | payer OTHER ==
[~2020-04-02] VITALS: Ht 167.6 cm; Wt 133.6 kg
[2020-04-02] MEDS ORDERED: HYDR-3713 (17:08)
[2020-04-02] MEDS ORDERED: ZOLP5TAB (17:08)
[2020-04-02] MEDS ORDERED: ALBU83IN (17:08)
[2020-04-02] MEDS ORDERED: ALBU8.5H (17:08)
[2020-04-02] MEDS ORDERED: ONDA4TAB6 (17:08)
[2020-04-02] MEDS ORDERED: METOCLOPRAMIDE INJ 10MG/2ML VIAL (J2765 PER 1) IV ONE (17:15)
[2020-04-02] MEDS ORDERED: KETOROLAC 30 MG/ML 1ML VIAL IM ONE (17:15)
[2020-04-02] MEDS ORDERED: PROCHLORPERAZINE 10MG/2ML VIAL (J0780 PER 1) IV ONE (17:15)
[2020-04-02] MEDS ORDERED: KETOROLAC 30 MG/ML 1ML VIAL IV ONE (17:30)
[2020-04-02 17:34] LABS: BASO % 0.3 % (0.0-1.0); EOS # 0.4 10^3/uL (0.0-0.5); EOS % 5.2 % (0.0-3.0); HEMATOCRIT 43.4 % (36.0-47.0); HEMOGLOBIN 13.8 g/dl (12.0-15.5); LYMPH # 2.3 10^3/uL (1.5-5.0); LYMPH % 31.3 % (24.0-44.0); MEAN CORPUSCULAR HEMOGLOBIN 29.5 pg (27.0-33.0); MEAN CORPUSCULAR HGB CONC 31.8 g/dl (32.0-36.5); MEAN CORPUSCULAR VOLUME 92.7 fl (80.0-96.0); MONO # 0.4 10^3/uL (0.0-0.8); NEUTROPHILS # 4.2 10^3/uL (1.5-8.5); NEUTROPHILS % 57.9 % (36.0-66.0); PLATELET COUNT, AUTOMATED 274 10^3/uL (150-450); RED BLOOD COUNT 4.68 10^6/uL (4.00-5.40); WHITE BLOOD COUNT 7.2 10^3/uL (4.0-10.0)
[2020-04-02 18:23] LABS: BLOOD UREA NITROGEN 6 MG/DL (7-18); CREATININE FOR GFR 0.76 MG/DL (0.55-1.30); GLOMERULAR FILTRATION RATE > 60.0 (>60); GLUCOSE, FASTING 86 MG/DL (70-100)
[2020-04-02 18:25] LABS: ALT/SGPT 20 IU/L (0-32); BILIRUBIN,TOTAL 0.5 MG/DL (0.2-1.0); CALCIUM LEVEL 8.9 MG/DL (8.5-10.1); CARBON DIOXIDE LEVEL 24 mmol/L (20-29); CHLORIDE LEVEL 109 MEQ/L (98-107); SODIUM LEVEL 142 MEQ/L (136-145)
[2020-04-02 18:26] LABS: BILIRUBIN,DIRECT 0.2 MG/DL (0.0-0.2)
[2020-04-02 18:27] LABS: ACETAMINOPHEN LEVEL 2.9 UG/ML (10.0-30.0); ALBUMIN 3.5 GM/DL (3.2-5.2); ETHYL ALCOHOL (ETHANOL) < 0.003 % (0.000-0.010); SALICYLATE LEVEL 3.3 MG/DL (5.0-30.0); TOTAL PROTEIN 6.7 GM/DL (6.4-8.2)
[2020-04-02 18:28] LABS: C REACTIVE PROTEIN QUANTITATIV 0.71 MG/DL (0.00-0.30); THYROID STIMULATING HORMONE 0.723 uIU/ML (0.358-3.740)
[2020-04-02] MEDS ORDERED: dexameTHASONE 4 MG/ML 1ML VIAL (J1100 PER 1MG) IV ONE (19:00)
[2020-04-02] MEDS ORDERED: MAG SULF 1GM/100ML (MAG RUN) 1 GM in IV 1 EA IV ONE (19:00)
--- NOTE | 2020-04-02 19:08 | ECGEPIP ---
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
[2020-04-02 19:36] LABS: ERYTHROCYTE SEDIMENTATION RATE 3 mm/hr (0-20)
[2020-04-02 21:24] VITALS: BP 114/68
== END 2020-04-02 21:47 | disposition home or self-care (01) ==
LOC: M ED 16:39
DX: R51.9 Headache, unspecified (principal); M54.2 Cervicalgia; I10 Essential (primary) hypertension; J45.909 Unspecified asthma, uncomplicated; F17.200 Nicotine dependence, unspecified, uncomplicated; Z88.8 Allergy status to other drugs, medicaments and biological substances; Z88.2 Allergy status to sulfonamides; Z79.51 Long term (current) use of inhaled steroids; Z79.899 Other long term (current) drug therapy
CPT/HCPCS: 80048; 80076; 84443; 85025; 85652; 86140; 93005; 93041; 94760; 96365; 96375; 99285; G0480; J0780; J1100; J1885; J2765; J3475

== ENCOUNTER 2020-06-03 11:24 | Emergency (ER) | payer OTHER ==
[~2020-06-03] VITALS: Ht 167.6 cm; Wt 106.8 kg
[~2020-06-03 11:24] MED LIST changes: +ALBU8.5H; +ALBU83IN; -ESCI20TA; +ESCI20TA16; +HYDR-3713; +METH-1164 PO; -METH1TAB40 PO; +ONDA4TAB6; +ZOLP5TAB
--- OUTSIDE RECORDS SUMMARY | 2020-06-03 11:31 | CCD ---
Author Author [facility] Organization [facility] Address Unknown Phone Unavailable Support Name Relationship Address Phone Mack Jacobo Next Of Kin [address] [place] [address] Dewey Walsh MD Next Of Kin [address] [place] [address] DENIS Next Of Kin [address] [place] [address] Cain Love MD Next Of Kin [address] [place] [address] Nori Atkinson Next Of Kin [address] [place] [address] AUNTIE DONALD[employer] PRETZELS Next Of Kin [address] [place] [address] [place] [address] UN Cynthia Bedoya MD Next Of Kin [address] [place], [place] [id number] Clau Lewis Next Of Kin [address] [place] [address] [address] [employer] Next Of Kin [address] [place] [address] ALLY Mujica Debbie Next Of Kin [address] [place] [address] [address] Next Of Kin [address] [address] SERGEY ANTONY Next Of Kin [address] [place], [place] [id number] Nydia Mullins Next Of Kin [address] [facility] [place] [address] Mandy Kaiser Next Of Kin [address] [place] [address] UE Next Of Kin Unknown Unavailable UNEMPLOYED Next Of Kin Unknown UNK Next Of Kin Unknown Unavailable ST Next Of Kin Unknown Unavailable CHICASLUDY LY Next Of Kin [address] [address] ANIL COMBS Next Of Kin [address] [place] [address] Care Team Providers Care Drywall Boardhanger Name Role Phone BRISCOE, KIN MACK RPA-C Unavailable Unavailable BRISCOE, KIN MACK RPA-C Unavailable Unavailable BRISCOE, KIN MACK RPA-C Unavailable Unavailable BRISCOE, KIN MACK RPA-C Unavailable Unavailable BRISCOE, KIN MACK RPA-C Unavailable Unavailable BRISCOE, KIN MACK RPA-C Unavailable Unavailable BRISCOE, KIN MACK RPA-C Unavailable Unavailable BRISCOE, KIN MACK RPA-C Unavailable Unavailable BRISCOE, KIN MACK RPA-C Unavailable Unavailable BRISCOE, KIN MACK RPA-C Unavailable Unavailable BRISCOE, KIN MACK RPA-C Unavailable Unavailable BRISCOE, KIN MACK RPA-C Unavailable Unavailable BRISCOE, KIN MACK RPA-C Unavailable Unavailable BRISCOE, KIN MACK RPA-C Unavailable Unavailable BRISCOE, KIN MACK RPA-C Unavailable Unavailable BRISCOE, KIN MACK RPA-C Unavailable Unavailable BRISCOE, KIN MACK RPA-C Unavailable Unavailable BRISCOE, KIN MACK RPA-C Unavailable Unavailable BRISCOE, KIN MACK RPA-C Unavailable Unavailable BRISCOE, KIN MACK RPA-C Unavailable Unavailable BRISCOE, KIN MACK RPA-C Unavailable Unavailable BRISCOE, KIN MACK RPA-C Unavailable Unavailable BRISCOE, KIN MACK RPA-C Unavailable Unavailable BRISCOE, KIN MACK RPA-C Unavailable Unavailable BRISCOE, KIN MACK RPA-C Unavailable Unavailable BRISCOE, KIN MACK RPA-C Unavailable Unavailable BRISCOE, KIN MACK RPA-C Unavailable Unavailable BRISCOE, KIN MACK RPA-C Unavailable Unavailable BRISCOE, KIN MACK RPA-C Unavailable Unavailable BRISCOE, KIN MACK RPA-C Unavailable Unavailable BRISCOE, KIN MACK RPA-C Unavailable Unavailable BRISCOE, KIN MACK RPA-C Unavailable Unavailable BRISCOE, KIN MACK RPA-C Unavailable Unavailable BRISCOE, KIN MACK RPA-C Unavailable Unavailable BRISCOE, KIN MACK RPA-C Unavailable Unavailable BRISCOE, KIN MACK RPA-C Unavailable Unavailable BRISCOE, KIN MACK RPA-C Unavailable Unavailable BRISCOE, KIN MACK RPA-C Unavailable Unavailable BRISCOE, KIN MACK RPA-C Unavailable Unavailable Steff WALSH MD Unavailable Unavailable Steff WALSH MD Unavailable Unavailable Steff WALSH MD Unavailable Unavailable Steff WALSH MD Unavailable Unavailable Steff WALSH MD Unavailable Unavailable Steff WALSH MD Unavailable Unavailable Steff WALSH MD Unavailable Unavailable Steff WALSH MD Unavailable Unavailable Steff WALSH MD Unavailable Unavailable Steff WALSH MD Unavailable Unavailable Steff WALSH MD Unavailable Unavailable Steff WALSH MD Unavailable Unavailable Steff WALSH MD Unavailable Unavailable Steff WALSH MD Unavailable Unavailable Steff WALSH MD Unavailable Unavailable Steff WALSH MD Unavailable Unavailable Steff WALSH MD Unavailable Unavailable Steff WALSH MD Unavailable Unavailable Steff WALSH MD Unavailable Unavailable Steff WALSH MD Unavailable Unavailable Steff WALSH MD Unavailable Unavailable Steff WALSH MD Unavailable Unavailable Steff WALSH MD Unavailable Unavailable Steff WALSH MD Unavailable Unavailable Steff WALSH MD Unavailable Unavailable Steff WALSH MD Unavailable Unavailable Steff WALSH MD Unavailable Unavailable Steff WALSH MD Unavailable Unavailable Steff WALSH MD Unavailable Unavailable Steff WALSH MD Unavailable Unavailable Steff WALSH MD Unavailable Unavailable Steff WALSH MD Unavailable Unavailable Steff WALSH MD Unavailable Unavailable Steff WALSH MD Unavailable Unavailable Steff WALSH MD Unavailable Unavailable Steff WALSH MD Unavailable Unavailable Steff WALSH MD Unavailable Unavailable Steff WALSH MD Unavailable Unavailable Steff WALSH MD Unavailable Unavailable Steff WALSH MD Unavailable Unavailable Steff WALSH MD Unavailable Unavailable Steff WALSH MD Unavailable Unavailable Steff WALSH MD Unavailable Unavailable Steff WALSH MD Unavailable Unavailable Steff WALSH MD Unavailable Unavailable CHERIE, Steff PALOMO MD Unavailable Unavailable CHERIE, Steff PALOMO MD Unavailable Unavailable CHERIE, Steff PALOMO MD Unavailable Unavailable CHERIE, Steff PALOMO MD Unavailable Unavailable CHERIE, Steff PALOMO MD Unavailable Unavailable CHERIE, Steff PALOMO MD Unavailable Unavailable CHERIE, Steff PALOMO MD Unavailable Unavailable CHERIE, Steff PALOMO MD Unavailable Unavailable CHERIE, Steff PALOMO MD Unavailable Unavailable CHERIE, Steff PALOMO MD Unavailable Unavailable CHERIE, Steff PALOMO MD Unavailable Unavailable CHERIE, Steff PALOMO MD Unavailable Unavailable CHERIE, Steff PALOMO MD Unavailable Unavailable CHERIE, Steff PALOMO MD Unavailable Unavailable CHERIE, Steff PALOMO MD Unavailable Unavailable CHERIE, Steff PALOMO MD Unavailable Unavailable CHERIE, Steff PALOMO MD Unavailable Unavailable CHERIE, Steff PALOMO MD Unavailable Unavailable CHERIE, Steff PALOMO MD Unavailable Unavailable CHERIE, Steff PALOMO MD Unavailable Unavailable CHERIE, Steff PALOMO MD Unavailable Unavailable CHERIE, Steff PALOMO MD Unavailable Unavailable CHERIE, Steff PALOMO MD Unavailable Unavailable CHERIE, Steff PALOMO MD Unavailable Unavailable CHERIE, Steff PALOMO MD Unavailable Unavailable CHERIE, Steff PALOMO MD Unavailable Unavailable CHERIE, Steff PALOMO MD Unavailable Unavailable CHERIE, Steff PALOMO MD Unavailable Unavailable CHERIE, Steff PALOMO MD Unavailable Unavailable CHERIE, Steff PALOMO MD Unavailable Unavailable CHERIE, Steff PALOMO MD Unavailable Unavailable CHERIE, Steff PALOMO MD Unavailable Unavailable CHERIE, Steff PALOMO MD Unavailable Unavailable CHERIE, Steff PALOMO MD Unavailable Unavailable CHERIE, Steff PALOMO MD Unavailable Unavailable CHERIE, Steff PALOMO MD Unavailable Unavailable CHERIE, Steff PALOMO MD Unavailable Unavailable CHERIE, Steff PALOMO MD Unavailable Unavailable Fish, Dorothy Mendoza MD Unavailable Unavailable Fish, Dorothy Mendoza MD Unavailable Unavailable Fish, Dorothy Mendoza MD Unavailable Unavailable Fish, Dorothy Mendoza MD Unavailable Unavailable Fish, Dorothy Mendoza MD Unavailable Unavailable Fish, Dorothy Mendoza MD Unavailable Unavailable Fish, Dorothy Mendoza MD Unavailable Unavailable Fish, Dorothy Mendoza MD Unavailable Unavailable Fish, Dorothy Mendoza MD Unavailable Unavailable Fish, Dorothy Mendoza MD Unavailable Unavailable Fish, Dorothy Mendoza MD Unavailable Unavailable Fish, Dorothy Mendoza MD Unavailable Unavailable Fish, Dorothy Mendoza MD Unavailable Unavailable Fish, Dorothy Mendoza MD Unavailable Unavailable Fish, Dorothy Mendoza MD Unavailable Unavailable Fish, Dorothy Mendoza MD Unavailable Unavailable Fish, Dorothy Mendoza MD Unavailable Unavailable Fish, Dorothy Mendoza MD Unavailable Unavailable Fish, Dorothy Mendoza MD Unavailable Unavailable Fish, Dorothy Mendoza MD Unavailable Unavailable Fish, B Reji TRAYLOR Unavailable Unavailable Fish, B Reji TRAYLOR Unavailable Unavailable Fish, B Reji TRAYLOR Unavailable Unavailable Fish, B Reji TRAYLOR Unavailable Unavailable Fish, B Reji TRAYLOR Unavailable Unavailable Fish, B Reji TRAYLOR Unavailable Unavailable Fish, B Reji TRAYLOR Unavailable Unavailable Fish, B Reji TRAYLOR Unavailable Unavailable Fish, B Reji TRAYLOR Unavailable Unavailable Fish, B Reji TRAYLOR Unavailable Unavailable Fish, B Reji TRAYLOR Unavailable Unavailable Fish, B Reji TRAYLOR Unavailable Unavailable Fish, B Reji TRAYLOR Unavailable Unavailable Fish, B Reji TRAYLOR Unavailable Unavailable Fish, B Reji TRAYLOR Unavailable Unavailable Fish, B Reji TRAYLOR Unavailable Unavailable Fish, B Reji TRAYLOR Unavailable Unavailable Fish, B Reji TRAYLOR Unavailable Unavailable Fish, B Reji TRAYLOR Unavailable Unavailable Fish, B Reji TRAYLOR Unavailable Unavailable Fish, B Reji TRAYLOR Unavailable Unavailable Fish, B Reji TRAYLOR Unavailable Unavailable Fish, B Reji TRAYLOR Unavailable Unavailable Fish, B Reji TRAYLOR Unavailable Unavailable Fish, B Reji TRAYLOR Unavailable Unavailable Fish, B Reji TRAYLOR Unavailable Unavailable Fish, B Reji TRAYLOR Unavailable Unavailable Fish, B Reji TRAYLOR Unavailable Unavailable Fish, B Reji TRAYLOR Unavailable Unavailable Fish, B Reji TRAYLOR Unavailable Unavailable Fish, B Reji TRAYLOR Unavailable Unavailable Fish, B Reji TRAYLOR Unavailable Unavailable Fish, B Reji TRAYLOR Unavailable Unavailable BRISCOE, KIN MACK RPA-C Unavailable Unavailable BRISCOE, KIN MACK RPA-C Unavailable Unavailable BRISCOE, KIN MACK RPA-C Unavailable Unavailable BRISCOE, KIN MACK RPA-C Unavailable Unavailable BRISCOE, KIN MACK RPA-C Unavailable Unavailable BRISCOE, KIN MACK RPA-C Unavailable Unavailable BRISCOE, KIN MACK RPA-C Unavailable Unavailable BRISCOE, KIN MACK RPA-C Unavailable Unavailable BRISCOE, KIN MACK RPA-C Unavailable Unavailable BRISCOE, KIN MACK RPA-C Unavailable Unavailable BRISCOE, KIN MACK RPA-C Unavailable Unavailable BRISCOE, KIN MACK RPA-C Unavailable Unavailable BRISCOE, KIN MACK RPA-C Unavailable Unavailable BRISCOE, KIN MACK RPA-C Unavailable Unavailable BRISCOE, KIN MACK RPA-C Unavailable Unavailable BRISCOE, KIN MACK RPA-C Unavailable Unavailable BRISCOE, KIN MACK RPA-C Unavailable Unavailable BRISCOE, KIN MACK RPA-C Unavailable Unavailable BRISCOE, KIN MACK RPA-C Unavailable Unavailable BRISCOE, KIN MACK RPA-C Unavailable Unavailable BRISCOE, KIN MACK RPA-C Unavailable Unavailable BRISCOE, KIN MACK RPA-C Unavailable Unavailable BRISCOE, KIN MACK RPA-C Unavailable Unavailable BRISCOE, KIN MACK RPA-C Unavailable Unavailable BRISCOE, KIN MACK RPA-C Unavailable Unavailable BRISCOE, KIN MACK RPA-C Unavailable Unavailable BRISCOE, KIN MACK RPA-C Unavailable Unavailable BRISCOE, KIN MACK RPA-C Unavailable Unavailable BRISCOE, KIN MACK RPA-C Unavailable Unavailable BRISCOE, KIN MACK RPA-C Unavailable Unavailable BRISCOE, KIN MACK RPA-C Unavailable Unavailable BRISCOE, KIN MACK RPA-C Unavailable Unavailable BRISCOE, KIN MACK RPA-C Unavailable Unavailable BRISCOE, KIN MACK RPA-C Unavailable Unavailable BRISCOE, KIN MACK RPA-C Unavailable Unavailable BRISCOE, KIN MAKC RPA-C Unavailable Unavailable BRISCOE, KIN MACK RPA-C Unavailable Unavailable BRISCOE, KIN MACK RPA-C Unavailable Unavailable BRISCOE, KIN MACK RPA-C Unavailable Unavailable [facility], RFROST BRISCOE PA MACK Unavailable Unavailable Re-disclosure Warning The records that you are about to access may contain information from federally-assisted alcohol or drug abuse programs. If such information is present, then the following federally mandated warning applies: This information has been disclosed to you from records protected by federal confidentiality rules (42 CFR part 2). The federal rules prohibit you from making any further disclosure of this information unless further disclosure is expressly permitted by the written consent of the person to whom it pertains or as otherwise permitted by 42 CFR part 2. A general authorization for the release of medical or other information is NOT sufficient for this purpose. The Federal rules restrict any use of the information to criminally investigate or prosecute any alcohol or drug abuse patient.The records that you are about to access may contain highly sensitive health information, the redisclosure of which is protected by Article 27-F of the [place] State Public Health law. If you continue you may have access to information: Regarding HIV / AIDS; Provided by facilities licensed or operated by the [facility] Office of Mental Health; or Provided by the [facility] Office for People With Developmental Disabilities. If such information is present, then the following [facility] mandated warning applies: This information has been disclosed to you from confidential records which are protected by state law. State law prohibits you from making any further disclosure of this information without the specific written consent of the person to whom it pertains, or as otherwise permitted by law. Any unauthorized further disclosure in violation of state law may result in a fine or retirement sentence or both. A general authorization for the release of medical or other information is NOT sufficient authorization for further disc losure. Family History Family Member Name Family Member Gender Family Member Status Date o f Status Description Data Source(s) Unknown Male Problem [facility] ([facility]) Encounters Encounter Providers Location Date Indications Data Source(s ) IVORY Richard: [address] [facility], [place] [address], Ph. Attender: MACK DODSON [facility] 02/15/2020 12:00:00 AM EST [facility] ([facility]) Outpatient Attender: STAR GURROLA [facility] 01/12 06:31:04 PM EDT [facility] Outpatient Attender: MACK DODSON [facility] 01/31/2020 06:31:01 PM EDT [facility] Outpatient Attender: STAR GURROLA [facility] 01/12 01:49:01 PM EDT [facility] Outpatient Attender: STAR GURROLA [facility] 01/12 10:07:00 AM EDT [facility] Outpatient Attender: STAR GURROLA [facility] 09/2019 03:05:00 PM EDT [facility] Outpatient Attender: STAR GURROLA [facility] 05/2019 05:20:00 PM EDT [facility] Outpatient Attender: STAR GURROLA [facility] 05/2019 05:19:00 PM EDT [facility] Outpatient Attender: STAR GURROLA [facility] 05/2019 02:49:59 PM EDT [facility] Outpatient Attender: STAR GURROLA [facility] 12/14 08:59:02 AM EDT [facility] Outpatient Attender: MACK BRISCOE RPA-C [facility] 01/04/2020 08:59:00 AM EDT [facility] Outpatient Attender: STAR BRISCOE DEMETRA MACK [facility] 12/14 08:54:02 AM EDT [facility] Outpatient Attender: MACK BRISCOE RPA-C [facility] 01/04/2020 08:54:00 AM EDT [facility] Outpatient Attender: RFROST BRISCOE PA MACK [facility] 12/14 05:21:00 PM EDT [facility] Outpatient Attender: RFROST BRISCOE PA MACK [facility] 11/2019 04:32:00 PM EDT [facility] Outpatient Attender: RFROST BRISCOE PA MACK [facility] 11/13 05:24:02 PM EDT [facility] Outpatient Attender: RFJOHN BRISCOE DEMETRA MACK [facility] 11/13 04:27:01 PM EDT [facility] Outpatient Attender: RFJOHN BRISCOE DEMETRA MACK [facility] 11/12 04:51:00 PM EDT [facility] Outpatient [id number] 11/11/2019 11:57:00 AM EDT - 11/11/2019 11:57:00 AM EDT Lab test [facility] Lab test Outpatient Attender: STAR BRISCOE DEMETRA MACK [facility] 10/13 05:28:00 PM EDT [facility] Outpatient Attender: STAR BRISCOE DEMETRA MACK [facility] 10/12 05:15:03 PM EDT [facility] Outpatient Attender: MACK REYESST RPA-C [facility] 10/28/2019 02:23:01 PM EDT [facility] Outpatient Attender: RFJOHN BRISCOE PA MACK [facility] 10/12 02:23:00 PM EDT [facility] Outpatient Attender: MACK BRISCOE RPA-C [facility] 10/28/2019 02:20:01 PM EDT [facility] Outpatient Attender: RFJOHN BRISCOE PA MACK [facility] 10/12 02:19:03 PM EDT [facility] Outpatient Attender: RFROST BRISCOE PA MACK [facility] 10/12 04:37:01 PM EDT [facility] Outpatient Attender: RFROST BRISCOE PA MACK [facility] 11/2019 09:21:01 AM EDT [facility] Outpatient Attender: RFROST BRISCOE PA MACK [facility] 09/13 04:53:00 PM EDT [facility] Outpatient Attender: MACK REYESST RPA-C [facility] 10/07/2019 02:17:01 PM EDT [facility] Outpatient Attender: RFROST BRISCOE PA MACK [facility] 09/13 02:17:00 PM EDT [facility] Outpatient Attender: MACK BRISCOE RPA-C [facility] 10/07/2019 02:16:02 PM EDT [facility] Outpatient Attender: RFROST BRISCOE PA MACK [facility] 09/12 11:41:00 AM EDT [facility] Outpatient Attender: RFROST BRISCOE PA MACK [facility] 09/12 02:43:01 PM EDT [facility] Outpatient Attender: RFROST BRISCOE PA MACK [facility] 09/12 10:17:01 AM EDT [facility] Outpatient Attender: RFROST BRISCOE PA MACK [facility] 08/13 11:55:02 AM EDT [facility] Outpatient Attender: RFROST BRISCOE PA MACK [facility] 08/13 10:42:02 AM EDT [facility] Outpatient Attender: RFROST BRISCOE PA MACK [facility] 11/2019 12:11:01 PM EDT [facility] Outpatient Attender: RFROST BRISCOE PA MACK [facility] 11/2019 11:03:03 AM EDT [facility] Outpatient Attender: RFROST BRISCOE PA MACK [facility] 08/2019 04:36:02 PM EDT [facility] Outpatient Attender: RFROST BRISCOE PA MACK [facility] 07/14 09:09:00 AM EDT [facility] Outpatient Attender: RFROST BRISCOE PA MACK [facility] 05/2019 10:25:31 AM EDT [facility] Outpatient Attender: STAR GURROLA [facility] 06/14 02:29:01 PM EDT [facility] Outpatient Attender: MACK REYESST THOMPSONC [facility] 07/09/2019 02:28:04 PM EDT [facility] Outpatient Attender: MACK LUIS FELIPE TARANGO-C 07/05/2019 10:36:00 AM EDT [facility] Outpatient Referrer: Reji Snow MD 06/21/2019 11:31:00 AM EDT [facility] Outpatient Attender: DEWEY WALSH MD 06/18/2019 10:57:[address] [facility] Outpatient Attender: DEWEY WALSH MD 06/10/2019 12:32:[address] [facility] Outpatient Attender: DEWEY WALSH MD 06/10/2019 12:32:[address] [facility] Outpatient Attender: DEWEY WALSH MD 06/07/2019 09:01:[address] [facility] Outpatient Attender: DEWEY WALSH MD 06/07/2019 10:10:[address] [facility] Outpatient Attender: DEWEY WALSH MD 06/07/2019 09:06:[address] [facility] Outpatient Attender: DEWEY WALSH MD 06/07/2019 09:05:[address] [facility] Outpatient Attender: DEWEY WALSH MD 06/07/2019 09:03:[address] [facility] Outpatient Referrer: Reji Snow MD 06/02/2019 02:06:00 PM [facility] Outpatient Attender: DEWEY WALSH MD 04/27/2019 03:24:[address] [facility] Outpatient Attender: DEWEY WALSH MD 04/27/2019 08:40:[address] [facility] Outpatient Attender: DEWEY WALSH MD 04/26/2019 11:27:[address] [facility] Outpatient Attender: DEWEY WALSH MD 04/26/2019 11:23:[address] [facility] Outpatient Referrer: Reji Snow MD 04/22/2019 06:02:00 AM EST [facility] Immunizations Vaccine Date Status Description Data Source(s) New in 2011. IIV4 02/15/2020 10:45:00 AM EST completed 0.5 mL [facility] ([facility]) Medications Medication Brand Name Start Date Product Form Dose Route Admi nistrative Instructions Pharmacy Instructions Status Indications Reaction Description Data Source(s) 5-325 mg 05/29/2020 12:00:00 AM EST tablet 21 TAKE ONE TABLET BY MOUTH EVERY 8 HOURS NEEDED FOR PAIN MAXIMUM DAILY DOSE = 3 TAKE ONE TABLET BY MOUTH EVERY 8 HOURS NEEDED FOR PAIN MAXIMUM DAILY DOSE = 3 SOLD: 05/29/2020 [facility] 5-325 mg 05/22/2020 12:00:00 AM EST tablet 21 TAKE ONE TABLET BY MOUTH EVERY 8 HOURS NEEDED FOR PAIN MAXIMUM DAILY DOSE = 3 TAKE ONE TABLET BY MOUTH EVERY 8 HOURS NEEDED FOR PAIN MAXIMUM DAILY DOSE = 3 SOLD: 05/22/2020 [facility] 5-325 mg 05/15/2020 12:00:00 AM EST tablet 21 TAKE ONE TABLET BY MOUTH EVERY 8 HOURS NEEDED FOR PAIN MAXIMUM DAILY DOSE = 3 TAKE ONE TABLET BY MOUTH EVERY 8 HOURS NEEDED FOR PAIN MAXIMUM DAILY DOSE = 3 SOLD: 05/15/2020 [facility] 5-325 mg 05/08/2020 12:00:00 AM EST tablet 21 TAKE ONE TABLET BY MOUTH EVERY 8 HOURS NEEDED FOR PAIN, MAXIMUM DAILY DOSE = 3 TAKE ONE TABLET BY MOUTH EVERY 8 HOURS NEEDED FOR PAIN, MAXIMUM DAILY DOSE = 3 SOLD: 05/08/2020 [facility] 5-325 mg 05/02/2020 12:00:00 AM EST tablet 21 TAKE ONE TABLET BY MOUTH EVERY 8 HOURS NEEDED FOR PAIN MAXIMUM DAILY DOSE = 3 TAKE ONE TABLET BY MOUTH EVERY 8 HOURS NEEDED FOR PAIN MAXIMUM DAILY DOSE = 3 SOLD: 05/02/2020 [facility] 5 mg 05/02/2020 12:00:00 AM EST tablet 30 TAKE ONE TABLET BY MOUTH EVERY DAY NEEDED MAXIMUM DAILY DOSE = 1 TAKE ONE TABLET BY MOUTH EVERY DAY NE EDED MAXIMUM DAILY DOSE = 1 SOLD: 05/02/2020 [facility] 5-325 mg 04/24/2020 12:00:00 AM EST tablet 21 TAKE ONE TABLET BY MOUTH EVERY 8 HOURS NEEDED FOR PAIN MAXIMUM DAILY DOSE = 3 TAKE ONE TABLET BY MOUTH EVERY 8 HOURS NEEDED FOR PAIN MAXIMUM DAILY DOSE = 3 SOLD: 04/24/2020 [facility] 5-325 mg 04/17/2020 12:00:00 AM EST tablet 21 TAKE ONE TABLET BY MOUTH EVERY 8 HOURS NEEDED FOR PAIN, MAXIMUM DAILY DOSE = 3 TAKE ONE TABLET BY MOUTH EVERY 8 HOURS NEEDED FOR PAIN, MAXIMUM DAILY DOSE = 3 SOLD: 04/17/2020 [facility] 5-325 mg 04/10/2020 12:00:00 AM EST tablet 21 TAKE ONE TABLET BY MOUTH EVERY 8 HOURS NEEDED FOR PAIN MAXIMUM DAILY DOSE = 3 TAKE ONE TABLET BY MOUTH EVERY 8 HOURS NEEDED FOR PAIN MAXIMUM DAILY DOSE = 3 SOLD: 04/10/2020 [facility] 5-325 mg 04/03/2020 12:00:00 AM EST tablet 21 TAKE ONE TABLET BY MOUTH EVERY 8 HOURS NEEDED FOR PAIN MAXIMUM DAILY DOSE = 3 TAKE ONE TABLET BY MOUTH EVERY 8 HOURS NEEDED FOR PAIN MAXIMUM DAILY DOSE = 3 SOLD: 04/03/2020 [facility] 5-325 mg 03/27/2020 12:00:00 AM EST tablet 21 TAKE ONE TABLET BY MOUTH THREE TIMES A DAY NEEDED FOR 7 DAYS, MAXIMUM DAILY DOSE = 3 TAKE ONE TABLET BY MOUTH THREE TIMES A DAY NEEDED FOR 7 DAYS, MAXIMUM DAILY DOSE = 3 SOLD: 03/27/2020 [facility] 5-325 mg 03/21/2020 12:00:00 AM EST tablet 21 TAKE ONE TABLET BY MOUTH THREE TIMES A DAY NEEDED FOR 7 DAYS MAXIMUM DAILY DOSE = 3 TABLETS TAKE ONE TABLET BY MOUTH THREE TIMES A DAY NEEDED FOR 7 DAYS MAXIMUM DAILY DOSE = 3 TABLETS SOLD: 03/21/2020 [facility] 5 mg 03/21/2020 12:00:00 AM EST tablet 30 TAKE ONE TABLET BY MOUTH EVERY DAY NEEDED MAXIMUM DAILY DOSE = 1 TABLET TAKE ONE TABLET BY MOUTH EVERY DAY NEEDED MAXIMUM DAILY DOSE = 1 TABLET SOLD: 03/21/2020 [facility] 5-325 mg 03/13/2020 12:00:00 AM EST tablet 21 TAKE ONE TABLET BY MOUTH THREE TIMES A DAY NEEDED FOR 7 DAYS MAXIMUM DAILY DOSE = 3 TAKE ONE TABLET BY MOUTH THREE TIMES A DAY NEEDED FOR 7 DAYS MAXIMUM DAILY DOSE = 3 SOLD: 03/13/2020 [facility] 4 mg 03/06/2020 12:00:00 AM EST tablet,disintegrating 3 0 DISSOLVE 1 TABLET IN MOUTH THREE TIMES A DAY NEEDED DISSOLVE 1 TABLET IN MOUTH THREE TIMES A DAY NEEDED SOLD: 04/22/2020 [facility] 4 mg 03/06/2020 12:00:00 AM EST tablet,disintegrating 3 0 DISSOLVE 1 TABLET IN MOUTH THREE TIMES A DAY NEEDED DISSOLVE 1 TABLET IN MOUTH THREE TIMES A DAY NEEDED SOLD: 03/06/2020 [facility] 4 mg 03/06/2020 12:00:00 AM EST tablet,disintegrating 3 0 DISSOLVE 1 TABLET IN MOUTH THREE TIMES A DAY NEEDED DISSOLVE 1 TABLET IN MOUTH THREE TIMES A DAY NEEDED SOLD: 05/17/2020 [facility] 5-325 mg 03/06/2020 12:00:00 AM EST tablet 21 TAKE ONE TABLET BY MOUTH THREE TIMES A DAY NEEDED MAXIMUM DAILY DOSE = 3 TABLETS TAKE ONE TABLET BY MOUTH THREE TIMES A DAY NEEDED MAXIMUM DAILY DOSE = 3 TABLETS SOLD: 03/06/2020 [facility] 5-325 mg 02/28/2020 12:00:00 AM EST tablet 21 TAKE ONE TABLET BY MOUTH THREE TIMES A DAY NEEDED FOR 7 DAYS MAXIMUM DAILY DOSE = 3 TAKE ONE TABLET BY MOUTH THREE TIMES A DAY NEEDED FOR 7 DAYS MAXIMUM DAILY DOSE = 3 SOLD: 02/28/2020 [facility] 5-325 mg 02/22/2020 12:00:00 AM EST tablet 21 TAKE ONE TABLET BY MOUTH THREE TIMES A DAY NEEDED FOR 7 DAYS TAKE ONE TABLET BY MOUTH THREE TIMES A D AY NEEDED FOR 7 DAYS SOLD: 02/22/2020 [facility] 5 mg 02/15/2020 12:00:00 AM EST tablet 30 TAKE ONE TABLET BY MOUTH EVERY DAY NEEDED FOR 30 DAYS MAXIMUM DAILY DOSE = 1 TAKE ONE TABLET BY MOUTH EVERY DAY NEEDED FOR 30 DAYS MAXIMUM DAILY DOSE = 1 SOLD: 02/15/2020 [facility] 5-325 mg 02/15/2020 12:00:00 AM EST tablet 21 TAKE ONE TABLET BY MOUTH THREE TIMES A DAY NEEDED FOR 7 DAYS MAXIMUM DAILY DOSE = 3 TAKE ONE TABLET BY MOUTH THREE TIMES A DAY NEEDED FOR 7 DAYS MAXIMUM DAILY DOSE = 3 SOLD: 02/15/2020 [facility] 5-325 mg 02/08/2020 12:00:00 AM EDT tablet 21 TAKE ONE TABLET BY MOUTH THREE TIMES A DAY NEEDED FOR 7 DAYS MAXIMUM DAILY DOSE = 3 TAKE ONE TABLET BY MOUTH THREE TIMES A DAY NEEDED FOR 7 DAYS MAXIMUM DAILY DOSE = 3 SOLD: 02/08/2020 [facility] 5-325 mg 02/01/2020 12:00:00 AM EDT tablet 21 TAKE ONE TABLET BY MOUTH THREE TIMES A DAY NEEDED MAXIMUM DAILY DOSE = 3 TAKE ONE TABLET BY MOUTH THREE TIMES A DAY NEEDED MAXIMUM DAILY DOSE = 3 SOLD: 02/01/2020 [facility] 5-325 mg 01/25/2020 12:00:00 AM EDT tablet 21 TAKE ONE TABLET BY MOUTH EVERY 4 TO 6 HOURS NEEDED FOR PAIN MAXIMUM DAILY DOSE = 3 TABLETS TAKE ONE TABLET BY MOUTH EVERY 4 TO 6 HOURS NEEDED FOR PAIN MAXIMUM DAILY DOSE = 3 TABLETS SOLD: 01/25/2020 [facility] 875-125 mg 01/15/2020 12:00:00 AM EDT tablet 20 TAKE ONE TABLET BY MOUTH TWICE A DAY FOR 10 DAYS TAKE ONE TABLET BY MOUTH TWICE A DAY FOR 10 DAYS SOLD: 01/15/2020 [facility] 30 mg 01/15/2020 12:00:00 AM EDT tablet 40 TAKE ONE TABLET BY MOUTH FOUR TIMES A DAY NEEDED TAKE ONE TABLET BY MOUTH FOUR TIMES A DAY NEEDED SO LD: 01/15/2020 [facility] 50 mcg/actuation 01/15/2020 12:00:00 AM EDT spray,suspension 16 SPRAY 2 SPRAYS IN EACH NOSTRIL ONCE DAILY SPRAY 2 SPRAYS IN EACH NOSTRIL ONCE DAILY SOLD: 01/15/2020 [facility] 2.5 mg /3 mL (0.083 %) 01/15/2020 12:00:00 AM EDT solu tion for nebulization 150 INHALE 1 VIAL VIA NEBULIZER FOUR TIMES A DAY FOR 10 DAYS INHALE 1 VIAL VIA NEBULIZER FOUR TIMES A DAY FOR 10 DAYS SOLD: 01/15/2020 [facility] 90 mcg/actuation 01/15/2020 12:00:00 AM EDT HFA aerosol inha ler 8 INHALE 1-2 PUFFS BY MOUTH EVERY 4 HOURS NEEDED WHEEZING INHALE 1-2 PUFFS BY MOUTH EVERY 4 HOURS NEEDED WHEEZING SOLD: 01/15/2020 [facility] 20 mg 01/15/2020 12:00:00 AM EDT tablet 10 TAKE ONE TABLET BY MOUTH TWICE A DAY FOR 5 DAYS TAKE ONE TABLET BY MOUTH TWICE A DAY FOR 5 DAYS SOLD: 2019 [facility] 5-325 mg 01/14/2020 12:00:00 AM EDT tablet 21 TAKE ONE TABLET BY MOUTH EVERY 4 TO 6 HOURS NEEDED SEVERE PAIN MAXIMUM DAILY DOSE = 3 TAKE ONE TABLET BY MOUTH EVERY 4 TO 6 HOURS NEEDED SEVERE PAIN MAXIMUM DAILY DOSE = 3 SOLD: 01/14/2020 [facility] 5 mg 01/14/2020 12:00:00 AM EDT tablet 30 TAKE ONE TABLET BY MOUTH AT BEDTIME NEEDED INSOMNIA MAXIMUM DAILY DOSE = 1 TAKE ONE TABLET BY MOUTH AT BEDTIME NEEDED INSOMNIA MAXIMUM DAILY DOSE = 1 SOLD: 01/14/2020 [facility] 5-325 mg 01/03/2020 12:00:00 AM EDT tablet 21 TAKE ONE TABLET BY MOUTH EVERY 4 TO 6 HOURS NEEDED FOR SEVERE PAIN MAXIMUM DAILY DOSE = 3 TAKE ONE TABLET BY MOUTH EVERY 4 TO 6 HOURS NEEDED FOR SEVERE PAIN MAXIMUM DAILY DOSE = 3 SOLD: 01/03/2020 [facility] 5-325 mg 12/21/2019 12:00:00 AM EDT tablet 21 TAKE ONE TABLET BY MOUTH EVERY 4 TO 6 HOURS NEEDED FOR SEVERE PAIN MAXIMUM DAILY DOSE = 3 TAKE ONE TABLET BY MOUTH EVERY 4 TO 6 HOURS NEEDED FOR SEVERE PAIN MAXIMUM DAILY DOSE = 3 SOLD: 12/21/2019 [facility] 5-325 mg 12/10/2019 12:00:00 AM EDT tablet 21 TAKE ONE TABLET BY MOUTH EVERY 4 TO 6 HOURS NEEDED SEVERE PAIN, MAXIMUM DAILY DOSE = 3 TAKE ONE TABLET BY MOUTH EVERY 4 TO 6 HOURS NEEDED SEVERE PAIN, MAXIMUM DAILY DOSE = 3 SOLD: 12/12/2019 [facility] 5 mg 12/07/2019 12:00:00 AM EDT tablet 30 TAKE ONE TABLET BY MOUTH AT BEDTIME NEEDED INSOMNIA MAXIMUM DAILY DOSE = 1 TABLET TAKE ONE TABLET BY MOUTH AT BEDTIME NEEDED INSOMNIA MAXIMUM DAILY DOSE = 1 TABLET SOLD: 12/07/2019 [facility] 5-325 mg 11/29/2019 12:00:00 AM EDT tablet 21 TAKE ONE TABLET BY MOUTH EVERY 4-6 HOURS NEEDED FOR SEVERE PAIN MAXIMUM DAILY DOSE = THREE TABLETS TAKE ONE TABLET BY MOUTH EVERY 4-6 HOURS NEEDED FOR SEVERE PAIN MAXIMUM DAILY DOSE = THREE TABLETS SOLD: 11/29/2019 [facility] 5-325 mg 11/17/2019 12:00:00 AM EDT tablet 21 TAKE 1 TABLET BY MOUTH EVERY 4-6 HOURS NEEDED FOR SEVERE PAIN MAXIMUM DAILY DOSE = 3 TAKE 1 TABLET BY MOUTH EVERY 4-6 HOURS NEEDED FOR SEVERE PAIN MAXIMUM DAILY DOSE = 3 SOLD: 11/17/2019 [facility] 5-325 mg 11/04/2019 12:00:00 AM EDT tablet 21 TAKE ONE TABLET BY MOUTH EVERY 4-6 HOURS NEEDED FOR SEVERE PAIN MAXIMUM DAILY DOSE = 3 TABLETS TAKE ONE TABLET BY MOUTH EVERY 4-6 HOURS NEEDED FOR SEVERE PAIN MAXIMUM DAILY DOSE = 3 TABLETS SOLD: 11/04/2019 [facility] 5 mg 10/29/2019 12:00:00 AM EDT tablet 30 TAKE ONE TABLET BY MOUTH AT BEDTIME NEEDED INSOMNIA, MAXIMUM DAILY DOSE = 1 TAKE ONE TABLET BY MOUTH AT BEDTIME NEEDED INSOMNIA, MAXIMUM DAILY DOSE = 1 SOLD: 10/29/2019 [facility] 5-325 mg 10/22/2019 12:00:00 AM EDT tablet 21 TAKE ONE TABLET BY MOUTH EVERY 4 TO 6 HOURS NEEDED SEVERE PAIN MAXIMUM DAILY DOSE = 3 TABLETS TAKE ONE TABLET BY MOUTH EVERY 4 TO 6 HOURS NEEDED SEVERE PAIN MAXIMUM DAILY DOSE = 3 TABLETS SOLD: 10/22/2019 [facility] 5-325 mg 10/07/2019 12:00:00 AM EDT tablet 21 TAKE ONE TABLET BY MOUTH EVERY 4-6 HOURS NEEDED FOR SEVERE PAIN MAXIMUM DAILY DOSE = 3 TABLETS TAKE ONE TABLET BY MOUTH EVERY 4-6 HOURS NEEDED FOR SEVERE PAIN MAXIMUM DAILY DOSE = 3 TABLETS SOLD: 10/07/2019 [facility] 5-325 mg 09/27/2019 12:00:00 AM EDT tablet 21 TAKE ONE TABLET BY MOUTH EVERY 4-6 HOURS NEEDED FOR SEVERE PAIN MAXIMUM DAILY DOSE = 3 TAKE ONE TABLET BY MOUTH EVERY 4-6 HOURS NEEDED FOR SEVERE PAIN MAXIMUM DAILY DOSE = 3 SOLD: 09/27/2019 [facility] 5 mg 09/24/2019 12:00:00 AM EDT tablet 30 TAKE ONE TABLET BY MOUTH AT BEDTIME NEEDED FOR INSOMNIA MAXIMUM DAILY DOSE = 1 TABLET TAKE ONE TABLET BY MOUTH AT BEDTIME NEEDED FOR INSOMNIA MAXIMUM DAILY DOSE = 1 TABLET SOLD: 09/24/2019 [facility] 5-325 mg 09/09/2019 12:00:00 AM EDT tablet 21 TAKE ONE TABLET BY MOUTH EVERY 4-6 HOURS NEEDED FOR PAIN MAXIMUM DAILY DOSE = 3 TAKE ONE TABLET BY MOUTH EVERY 4-6 HOURS NEEDED FOR PAIN MAXIMUM DAILY DOSE = 3 SOLD: 09/09/2019 [facility] 5 mg 08/17/2019 12:00:00 AM EDT tablet 30 TAKE 1 TABLET BY MOUTH 1 HOUR PRIOR TO SLEEPING NEEDED INSOMNIA MAXIMUM DAILY DOSE = 1 TAKE 1 TABLET BY MOUTH 1 HOUR PRIOR TO SLEEPING NEEDED INSOMNIA MAXIMUM DAILY DOSE = 1 SOLD: 08/17/2019 [facility] 5-325 mg 08/17/2019 12:00:00 AM EDT tablet 21 TAKE ONE TABLET BY MOUTH EVERY 4 TO 6 HOURS NEEDED FOR SEVERE PAIN MAXIMUM DAILY DOSE = 3 TAKE ONE TABLET BY MOUTH EVERY 4 TO 6 HOURS NEEDED FOR SEVERE PAIN MAXIMUM DAILY DOSE = 3 SOLD: 08/17/2019 [facility] fluticasone propionate 50 mcg/actuation nasal spray,suspension [id number] completed fluticasone propionate 0.05 MG/ACTUAT Metered Dose Nasal [place] ([facility]) topiramate 25 MG Oral Tablet topiramate 25 mg tablet topiramate 25 mg tablet completed topiramate 25 MG Oral Tablet [place] ([facility]) Diclofenac Sodium 50 MG Delayed Release Oral Tablet diclofenac sodium 50 mg tablet,delayed release diclofenac sodium 50 mg tablet,delayed release completed diclofenac sodium 50 MG Lakisha yed Release Oral Tablet [place] ([facility]) benzonatate 100 MG Oral Capsule benzonatate 100 mg cap ritchie benzonatate 100 mg capsule completed benzonatate 10 0 MG Oral Capsule [place] ([facility]) 24 HR venlafaxine 37.5 MG Extended Relea se Oral Capsule venlafaxine ER 37.5 mg capsule,extended release 24 hr venlafaxine ER 37.5 mg capsule,extended release 24 hr completed 24 HR v enlafaxine 37.5 MG Extended Release Oral Capsule [place] ([facility]) Pseudoephedrine Hydrochloride 30 MG Oral Tablet [Sudogest] Sudogest 30 mg tablet Sudogest 30 mg tablet completed pseudoephedrine hydrochloride 30 MG Oral Tablet [Sudogest] [place] ([facility]) Prednisone 20 MG Oral Tablet prednisone 20 mg tablet prednisone 20 mg tablet completed prednisone 20 MG Oral Tablet [place] ([facility]) Acetaminophen 325 MG / Oxycodone Hydroch loride 5 MG Oral Tablet oxycodone- acetaminophen 5 mg-325 mg tablet oxycodone-acetaminophen 5 mg-325 mg tablet completed acetaminop hen 325 MG / oxycodone hydrochloride 5 MG Oral Tablet [facility] ([facility]) Amoxicillin 875 MG / Clavulanate 125 MG Oral Tablet amoxicillin 875 mg-potassium clavulanate 125 mg tablet amoxicillin 875 mg-potassium clavulanate 125 mg tablet completed amoxici llin 875 MG / clavulanate 125 MG Oral Tablet [facility] ([facility]) Oseltamivir 75 MG Oral Capsule oseltamivir 75 mg capsu le oseltamivir 75 mg capsule completed oseltamivir 75 MG Oral Capsule [facility] ([facility]) Azithromycin 250 MG Oral Tablet azithromycin 250 mg ta blet azithromycin 250 mg tablet completed azithromycin 25 0 MG Oral Tablet [facility] ([facility]) Insurance Providers Payer name Policy type / Coverage type Policy ID Covered alliance party ID Covered alliance party's relationship to hernandez Policy Hernandez Plan Information BRANDYN [id number] SP [id number] [place] O [id number] S [id number] EMEDNY [id number] SP [id number] Managed Care [place] P [id number] S [id number] Medicaid S [id number] S [id number] Medicaid S [id number] S [id number] BRANDYN I [id number] Self [id number] Managed Care Brandyn P [id number] S [id number] Managed Care [place] P [id number] S [id number] Managed Care Brandyn P [id number] S [id number] [facility] I [id number] Self [id number] Medicaid S [id number] S [id number] [facility] COMM[facility]ITY [facility] MCDO [id number] SP [id number] Managed Care - Community Plan [facility] P [id number] S [id number] Medicaid S [id number] S [id number] Managed Care - Community Plan [facility] P [id number] S [id number] Pupil Benefits (pr) Commercial [id number] Family Dependent [id number] [place] Medig[place] Part [place] [id number] Family Dependent [id number] Ghi/Emblem HLTH (pr) Medigap Part B [id number] Family Depende nt [id number] BS Jayden Hmo Blue Option Medigap Part B [id number] Self [id number] [facility] Community Plan Commercial [id number] Self [id number] [facility](MCAID) O [id number] S [id number] Medicaid S [id number] S [id number] Managed Care - Community Plan [facility] P [id number] S [id number] [facility] Maintenance Organization (HMO) Self [facility] COMMUNITY PLAN MCDO [id number] SP [id number] BLUE CROSS [place] PLAN [id number] SP [id number] [place] Medig[place] Part B Self [facility] Community Plan Commercial Self [facility] COMMUNITY PLAN MCDO [id number] SP [id number] [facility] MEDICAID JAYDEN HMO [id number] S [id number] Medicaid S [id number] S [id number] [facility] I [id number] Self [id number] MEDICAID [id number] SP [id number] Managed Care - Community Plan [facility] P [id number] S [id number] Self Pay O UNAVAILABLE S UNAVAILA BLE Managed Care - Community Plan [facility] P [id number] S [id number] Managed Care BCBS O [id number] S [id number] HMO BLUE [id number] SP [id number] [employer]CE[employer] BCBS P [id number] S [id number] Problems, Conditions, and Diagnoses Code Display Name Description Problem Type Effective Dates Data Source(s) [id number] Long-term current use of opiate analgesi c drug Long-term Current Use of Opiate Analgesic Drug Problem 02/15/2020 12:00:00 AM EST ATH [facility] ([facility]) [id number] Abnormal cytology findings Abnormal Cytology Findings Problem 01/27/2020 05:52:03 PM EDT [facility] ([facility]) [id number] Asthma Asthma Problem 01/27/2020 05:52:03 PM ED T [place] ([facility]) [id number] Depressive disorder Depressive Disorder Problem 1 05:52:03 PM EDT [place] ([facility]) 788.41 Increased frequency of urination Increased frequency o f urination 10/28/2019 02:18:18 PM EDT [facility] [id number] Generalized edema Generalized edema 10/28/2019 02:18:18 PM EDT [facility] [id number] Increased frequency of urination Increased Frequ ency of Urination Problem 10/28/2019 12:00:00 AM EDT - 02/15/2020 12:00:00 AM TARAH SIEGEL ([facility]) [id number] Edema, generalized Edema, Generalized Problem 12:00:00 AM EDT [place] ([facility]) [id number] Otalgia of left ear Otalgia of left ear 10/07/2019 02:15:45 PM EDT [facility] R73.01 Impaired fasting glucose Impaired fasting glycemia 10/07/2019 02:15:45 PM EDT [facility] V65.8 Person consulting for explanation of exa mination or test findings Person consulting for explanation of examination or test findings 10/07/2019 02:15:45 PM EDT [facility] 278.01 Morbid obesity Morbid obesity 10/07/2019 02:15: 45 PM EDT [facility] [id number] Patient asked to attend Patient Asked to Attend Proble m 10/07/2019 12:00:00 AM EDT [place] ([facility]) [id number] Impaired fasting glycemia Impaired Fasting Glycemia Pr oblem 10/07/2019 12:00:00 AM EDT [place] ([facility]) 348.2 Benign intracranial hypertension Benign intracranial h ypertension 07/09/2019 02:26:44 PM EDT [facility] [id number] Benign intracranial hypertension Benign Intracra nial Hypertension Problem 07/09/2019 12:00:00 AM EDT [place] ([facility]) 465.9 upper respiratory infection upper respiratory infectio n 06/10/2019 12:30:59 PM EST [facility] V85.42 BMI 45.0-49.9 BMI 45.0-49.9 06/07/2019 10:09:59 AM [facility] [id number] Body mass index 30+ - obesity Body Mass Index 30+ - Ob esity Problem 06/07/2019 12:00:00 AM EST [place] ([facility]) 66915964 Headache Headache Problem 04/29/2019 12:00:00 AM TARAH RYAN ([facility] ) [id number] Anxiety disorder Anxiety disorder Problem 04/29/2019 12 :00:00 AM EST [facility] ([facility]) [id number] Clinical finding Clinical Finding Problem 018 12:00:00 AM EST - 02/15/2020 12:00:00 AM EST [facility] ([facility]) Z5189 Encounter for other specified aftercare Encounter for other specified aftercare Diagnosis 11/11/2019 11:57:00 AM EDT [facility] Surgeries/Procedures Procedure Description Date Indications Data Source(s) Exam Comprehensive, New PT 04/29/2019 12:00:00 AM EST [facility] ([facility]) Refraction 04/29/2019 12:00:00 AM EST M [facility] ([facility]) Results ID Date Data Source [id number] 01/15/2020 12:00:00 AM EDT [facility] Name Value Range Interpretation Code Description Data Sondra rce(s) Supporting Document(s) SARS coronavirus 2 RNA [Presence] in Res piratory specimen by OSWALD with probe detection [facility] This lab was ordered by Rashel Barber and reported by [facility]. ID Date Data Source [id number] 11/19/2019 06:00:00 PM EDT [facility]) Name Value Range Interpretation Code Description Data Sondra rce(s) Supporting Document(s) HCG, serum qualitative negative negative normal HCG, Serum Qu alitative [facility] ([facility]) ID Date Data Source [id number] 11/19/2019 06:00:00 PM EDT [place] ([facility]) Name Value Range Interpretation Code Description Data Sondra rce(s) Supporting Document(s) lipase 57 U/L 73-393 Below low normal Lipase [facility]) ID Date Data Source [id number] 11/19/2019 06:00:00 PM EDT [facility]) Name Value Range Interpretation Code Description Data Sondra rce(s) Supporting Document(s) creatinine for GFR 0.78 mg/dL 0.55-1.30 normal Creatinine for GF R [facility] ([facility]) blood urea nitrogen 6 mg/dL 7-18 Below low normal Blood Urea Nitrogen [place] ([facility]) glucose, fasting 78 mg/dL 70-100 normal Glucose, Fasting AT [facility] ([facility]) sodium level 140 mEq/L 136-145 normal Sodium Level [facility] ([facility]) glomerular filtration rate > 60.0 >60 normal Glomerula r Filtration Rate [place] ([facility]) potassium serum 4.1 mEq/L 3.5-5.1 normal Potassium Serum ATH NA [facility]) chloride level 109 mEq/L 98-107 Above high normal Chloride Level [place] ([facility]) calcium level 9.3 mg/dL 8.5-10.1 normal Calcium Level [facility]) anion gap 5 mEq/L 8-16 Below low normal Anion Gap [place] ( [facility]) carbon dioxide level 26 mEq/L 21-32 normal Carbon Dioxide Level [place] ([facility]) ID Date Data Source [id number] 11/19/2019 06:00:00 PM EDT [facility]) Name Value Range Interpretation Code Description Data Sondra rce(s) Supporting Document(s) AST/SGOT 8 U/L 7-37 normal AST/SGOT [place] ([facility]) ALT/SGPT 21 U/L 12-78 normal ALT/SGPT [place] ([facility]) bilirubin,total 0.5 mg/dL 0.2-1.0 normal [facility] alkaline phosphatase 66 U/L 45-117 normal Alkaline Phosph atase [facility]) bilirubin,direct 0.1 mg/dL 0.0-0.2 normal Bilirubin,direct AT [facility]) albumin 3.8 gm/dL 3.2-5.2 normal Albumin [facility]) total protein 7.2 gm/dL 6.4-8.2 normal Total Protein [place] ( [facility]) albumin/globulin ratio 1.2-2.2 Below low normal Albumin /globulin Ratio [place] ([facility]) ID Date Data Source [id number] 11/19/2019 06:00:00 PM EDT [facility] Name Value Range Interpretation Code Description Data Sondra rce(s) Supporting Document(s) HCT 44.0 % 36.0-47.0 N [facility] HGB 14.1 g/dL 12.0-15.5 N [facility] MCH 32.0 G/DL pg 32.0-36.5 N [facility] MCHC 29.5 PG % 27.0-33.0 [facility] PLATELETS 233 10 10*3/mm3 150-450 N [facility] RBC 4.78 10 10*6/mm3 4.00-5.40 [facility] RDW 12.2 % 11.5-14.5 [facility] WBC TOTAL 8.3 4.0-10.0 N [facility] ID Date Data Source [id number] 11/19/2019 06:00:00 PM EDT [facility] Name Value Range Interpretation Code Description Data Sondra rce(s) Supporting Document(s) APPEARANCE U HAZY CLEAR N [facility] SPEC GR URIN 1.026 1.002-1.035 N [facility] UA COLOR YELLOW YELLOW N [facility] ID Date Data Source [id number] 11/10/2019 10:20:00 AM EDT [facility] Name Value Range Interpretation Code Description Data Sondra rce(s) Supporting Document(s) BG FASTING SEE SEPARATE REPORT mg/dL N [facility] ID Date Data Source [id number] 11/10/2019 10:20:00 AM EDT [facility] Name Value Range Interpretation Code Description Data Sondra rce(s) Supporting Document(s) BASIC METABOLIC PANEL [facility] BASIC METABOLIC PANEL Sodium [Moles/volume] in Serum or Plasma 138 mEq/L 136 - 145 [facility] Potassium [Moles/volume] in Serum or Plasma 4.8 mEq/L 3.5 - 5.1 [facility] Chloride [Moles/volume] in Serum or Plasma 104 mEq/L 98 - 107 [facility] Carbon dioxide, total [Moles/volume] in Serum or Plasma 27.2 mEq /L 21.0 - 32.0 [facility] Glucose [Mass/volume] in Serum or Plasma 86 mg/dL 70 - 100 [facility] Urea nitrogen [Mass/volume] in Serum or Plasma 9 mg/dL 7 - 18 [facility] CREATININE SERUM 0.89 mg/dL 0.55 - 1.02 [facility] AGE 29 yrs [facility] l eGFR NON-AFR AMR >60 [facility] eGFR AFR AMR >[address] [facility] BUN/CREAT 10 6 - 25 [facility] l Calcium [Mass/volume] in Serum or Plasma 9.2 mg/dL 8.8 - 10.2 [facility] ANION GAP 7 7 - 15 [facility] l Estimated GFR reference r [place]: > 60 mL/min/1.73m >18 years: Calculated using IDMS traceable MDRD Study Equation <18 years: Calculated using IDMS traceable Bedside [place] Equation ID Date Data Source [id number] 10/28/2019 02:20:41 PM EDT [facility] Name Value Range Interpretation Code Description Data Sondra rce(s) Supporting Document(s) APPEARANCE U cloudy [facility] BILIRUBIN UR negative [facility] BLOOD UR DIP negative [facility] GLUCOSE, URN negative [facility] KETONES URN negative [facility] NITRITE URN negative [facility] PH URINE 6.0 [facility] PROTEIN, URN negative [facility] SPEC GR URIN 1.020 [facility] UA COLOR light yellow [facility] UROBILINOGEN 3.5 [facility] WBC DIPSTK U negative [facility] ID Date Data Source [id number] 10/28/2019 01:46:52 PM EDT [facility] Measurements & CalculationsHeight: 67 inches (5 ft. 7 in.) 170.18 cm Weight: 320 pounds 6 oz. 145.63 kg Body Mass Index (BMI): 50.36BMI Interpretation: Morbidly ObeseBody Surface Area (BSA): 2.47Weight Management Education Done (Nutrition/Physical Activity)Vital SignsTemperature: 97.2F 36.22C tympanic Pulse Rate: 79 beats/minuteRespiratory Rate: 18 respirations/minuteBlood Pressure: 117/82 left arm sitting automaticO2 Saturation: 98% Vital Signs performed by: Jeniffer Whittington LPN, October 28, 2019 1:47 PMVital Signs performed by: Mack MCCRARY, October 28, 2019 2:06 PMInitial Intake Information From: patientRoom #: 1Infectious Disease / Travel ScreeningRecent travel for you or any close contacts? NoHave you had any close contact with anyone diagnosed with or under investigation for COVID-19 (coronavirus)? NoFever? NoRespiratory symptoms: cough, cold, congestion, shortness of breath, difficulty breathing? NoLoss of smell? NoLoss of taste? NoSmoking, Tobacco, Vaping or Smoke Exposure StatusSmoke Status: former smokerTobacco Use: NoDo you vape? NoPassive Smoke Exposure: NoMenstrual HistoryLast Menstrual Period (LMP): 10/19/2019Any possibility of ? NoHealthcare HistorySince your last office visit...Have you been admitted to the hospital? NoHave you been to an emergency room (ER) or urgent care clinic? NoHave you seen another healthcare provider? Yes - neuroHave you seen a dentist? Yes - lolyueIntake performed by: Jeniffer Whittington LPN, October 28, 2019 1:49 PMRate Your HealthIn general, would you say your health is? GoodPain AssessmentAre you currently having any pain which... You would like your provider to address? Yes Affects your activity level? NoDepression Screening - PHQ-2Over the last two weeks, have you... Had little interest or pleasure in doing things? Not at all Been feeling down, depressed, or hopeless? Not at all PHQ-2 Score: 0Anxiety Screening - STONE-2Over the last two weeks, have you been... Feeling nervous, anxious, or on edge? Not at all Unable to stop or control worrying? Not at all STONE-2 Score: 0Food InsecurityWithin the past year...Did you worry whether your food would run out before you got money to buy more? NoWas there a time when the food you bought didn't last and you didn't have money to get more? Does not apply to mePain AssessmentLocation: legs/feetDuration: 4-7 daysCharacter/Quality: pressureScreening, Brief Intervention, & Referral to Treatment (SBIRT)Pre- Screening Questions How many times have you have 4 or more drinks in a day? 0How many times have you used an illegal drug or used a prescription medication for a non-medical reason? 0Performed by: Jeniffer Whittington LPN, October 28, 2019 1:50 PMPatient History Medical History:AsthmaAnxiety DisorderDepressionU T I- Recurrenthx of cuttingAbnormal Pap SmearDelivery of Child September,Surgical History:CholecystectomyTonsillectomyFamily History:Family History of AlcoholismFamily History of ArthritisFH of AnxietyFamily History of AsthmaFH DepressionFH DiabetesFH Lung/Respiratory DiseaseFH Psychiatric CareSocial/Personal History:Smoking History:Patient currently smokes every day.Patient has been counseled to quit.Occ smokes Chief Complaintswelling in hands/feet/faceHistory of Present Illness (HPI)29 yo female pt presents today for swelling in hands, feet and face. Pt states it has been going on for 4-5 days started after going to the beach one day. Pt states swelling is worse at night. Pt reports now pain with the swelling and stiffness. Admits to drinking one gatorade/powerade daily, sometimes two. Also drinks water throughout the day, about 100 oz daily. Admits to frequency of urination in the last 4-5 days. HPI performed by: Mack MCCRARY, October 28, 2019 2:06 PMTransitions of Care InboundProblem ReviewProblem List was reviewed and/or updated during this visit.Medication Reconciliation & ReviewMedication List was reviewed and/or updated during this visit, including review of any kqkt-eks-mdqhstl medications, herbal therapies, and/or supplements.Allergy ReviewAllergy List was reviewed and/or updated during this visit.Adult Preventive CareLabs/Meds/Other Counseling-Nutrition and Physical Activity:BMI Interpretation: Morbidly Obese (10/28/2019) Counseling: Done (10/28/2019) Physical Activity: Done (10/28/2019)Review of Systems General: Denies loss of appetite, chills, dizziness, fatigue, fever, feeling ill. Cardiovascular: Complains of peripheral edema. Denies chest pain, palpitations, feeling faint, elevated blood pressure. Respiratory: Denies cough, difficulty breathing, shortness of breath, wheezing. Gastrointestinal: Denies nausea, vomiting, diarrhea, pain or discomfort. Genitourinary: Complains of urinary frequency. Denies pain with urination, burning with urination, blood in urine. Musculoskeletal: Complains of see HPI, stiffness. Denies joint pain, leg pain. Skin: Denies rash, redness. Neurologic: Denies weakness, feeling faint. Physical ExamGeneral Appearance: well nourished, well hydrated, no acute distress, obese femaleEyes, External: conjunctivae and lids normal, EOMIRespiratory, Auscultation: clear to auscultation bilaterally; no rales, rhonchi, or wheezesRespiratory, Effort: no intercostal retractions or use of accessory musclesCardiovascular, Auscultation: S1, S2 audible; no murmur, rub, or gallop; RRRPeripheral Circulation: trace pitting edema of feet/ankles, nontender, no erythema, no pitting edema of handsAbdomen: soft, non-tender, no masses, bowel sounds normalGait & Station: normalSkin, Inspection: no rashes, lesions, or ulcerationsOrientation: oriented to time, place, and personJudgment & Insight: intactCare Management Plan Transitions of CareInboundRate Your HealthIn general, would you say your health is? GoodAssessment & Plan Problems:Added: Generalized edema (UCM36-G52.1) Assessment: Instructions: Suspect heat and humidity related. Will recheck renal function. If stable, will add low dose hydrochlorothiazide as needed and again check renal function after taking for 2-4 weeks. Both lab slips given to patient.Increased frequency of urination (ICD-788.41) (WSO99-T51.0) Assessment: Instructions: Normal urinalysis in the office today, will not send for culture.Removed:Otalgia of left ear (MES64-Y09.02)Patient Instructions/Care Plan: Generalized edema: Suspect heat and humidity related. Will recheck renal function. If stable, will add low dose hydrochlorothiazide as needed and again check renal function after taking for 2-4 weeks. Both lab slips given to patient.Increased frequency of urination: Normal urinalysis in the office today, will not send for culture. Plan developed in collaboration with patient and/or familyMedications:ACETAZOLAMIDE ER 500 MG ORAL CAPSULE EXTENDED RELEASE 12 HOURVENTOLIN HFA 108 (90 BASE) MCG/ACT INHALATION AEROSOL SOLUTIONHYDROCODONE-ACETAMINOPHEN 5-325 MG ORAL TABLETZOLPIDEM TARTRATE 5 MG ORAL TABLETAllergies:* GEODON (Moderate)BACTRIM (Moderate)* TOPAMAX (Moderate)Orders:Metabolic Panel, Basic [CPT-51847] Metabolic Panel, Basic [CPT- 67814] Adult - Ofc Vst, EST, Level III [CPT-79557] Urinalysis-automated [CPT-44940] Follow-Up Return to clinic: as needed Clinical Visit Summary Completed Labs In-House Urine TestsDate/Time Collected: October 28, 2019 2:21 PMDate/Time Received: October 28, 2019 2:21 PMTest Result Reference Range Normal ValueRoutine Urinalysis Color: light yellow Yellow Appearance: cloudy Clear Leukocytes: negative Negative Nitrite: negative Negative Urobilinogen: 3.5 Negative Protein: negative Negative pH: 6.0 5.0-6.5 Blood: negative Negative Specific Yarnell: 1.020 1.020>=1.030 Ketone: negative Negative Bilirubin: negative Negative Glucose: negative NegativeCorubens Whittington LPN, October 28, 2019 2:21 PMAssessment & Plan Name Value Range Interpretation Code Description Data Sondra rce(s) Supporting Document(s) ID Date Data Source [id number] 10/07/2019 01:46:45 PM EDT [facility] Measurements & CalculationsHeight: 67 inches (5 ft. 7 in.) 170.18 cm Weight: 317 pounds 144.09 kg Body Mass Index (BMI): 49.83BMI Interpretation: Morbidly ObeseBody Surface Area (BSA): 2.46Vital SignsTemperature: 99.0F 37.22C tympanic Pulse Rate: 98 beats/minuteRespiratory Rate: 18 respirations/minuteBlood Pressure: 119/82 left arm sitting automaticO2 Saturation: 98% Vital Signs performed by: Jeniffer Whittington LPN, October 07, 2019 1:48 PMInitial Intake Information From: patientRoom #: 1Infectious Disease / Travel ScreeningRecent travel for you or any close contacts? NoHave you had any close contact with anyone diagnosed with or under investigation for COVID-19 (coronavirus)? NoFever? NoRespiratory symptoms: cough, cold, congestion, shortness of breath, difficulty breathing? NoLoss of smell? NoLoss of taste? NoSmoking, Tobacco, Vaping or Smoke Exposure StatusSmoke Status: former smokerTobacco Use: NoDo you vape? NoPassive Smoke Exposure: NoMenstrual HistoryLast Menstrual Period (LMP): 09/27/2019LMP History: ApproximateAny possibility of ? NoHealthcare HistorySince your last office visit...Have you been admitted to the hospital? NoHave you been to an emergency room (ER) or urgent care clinic? NoHave you seen another healthcare provider? Yes - neuro, Have you seen a dentist? Yes - Jorge A performed by: Jeniffer Whittington LPN, October 07, 2019 1:49 PMRate Your HealthIn general, would you say your health is? GoodPain AssessmentAre you currently having any pain which... You would like your provider to address? No Affects your activity level? NoDepression Screening - PHQ-2Over the last two weeks, have you... Had little interest or pleasure in doing things? Not at all Been feeling down, depressed, or hopeless? Not at all PHQ-2 Score: 0Anxiety Screening - STONE- 2Over the last two weeks, have you been... Feeling nervous, anxious, or on edge? Several days Unable to stop or control worrying? Not at all STONE-2 Score: 1Food InsecurityWithin the past year...Did you worry whether your food would run out before you got money to buy more? NoWas there a time when the food you bought didn't last and you didn't have money to get more? NoGeneralized Anxiety Disorder 7-Item Screening (STONE-7)Answer Guide:0 = Not at all1 = Several days2 = Over half the days3 = Nearly every dayOver the last 2 weeks, how often have you been bothered by the following problems?Feeling nervous, anxious, or on edge: 1Not being able to stop or control worryinWorrying too much about different things: 1Trouble relaxinBeing so restless that it's hard to sit still: 1Becoming easily annoyed or irritable: 1Feeling afraid as if something awful might happen: 0Answer Guide:0 = Not difficult at all1 = Somewhat difficult2 = Very difficult3 = Extremely difficultHow difficult have these made it for you to do your work, take care of things at home, or get along with other people? 1GAD-7 Screening Results STONE-2 Score: 1GAD-7 Score: 5Functional Impairment: Somewhat difficultRecommendation: Mild anxietyScreening, Brief Intervention, & Referral to Treatment (SBIRT)Pre-Screening Questions How many times have you have 4 or more drinks in a day? 0How many times have you used an illegal drug or used a prescription medication for a non-medical reason? 0Performed by: Jeniffer Whittington LPN, October 07, 2019 1:50 PMPatient History Medical History:AsthmaAnxiety DisorderDepressionU T I-Recurrenthx of cuttingAbnormal Pap SmearDelivery of Child September,Surgical History:CholecystectomyTonsillectomyFamily History:Family History of AlcoholismFamily History of ArthritisFH of AnxietyFamily History of AsthmaFH DepressionFH DiabetesFH Lung/Respiratory DiseaseFH Psychiatric CareSocial/Person al History:Smoking History:Patient currently smokes every day.Patient has been counseled to quit.Occ smokes Chief Complaintfollow-up visit: lab reiviewHistory of Present Illness (HPI)29 yo female pt presents for lab review. Labs from 09/30/2019: slightly elevated FBS at 103, otherwise unremarkable CMP, unremarkable lipids and thyroid function, vitamin D is slightly insufficient at 25.1 (not deficient), CBC normal. Pt states nothing has changed since last visit. Pt states she is still in pain but that is normal. Has seen neurology 3-4 times, opthalmology (Dr. Sanabria), and a retinal specialist (Sunil who advised return to [place]) a few times, since last office visit here. Has an appt next week for neuro follow-up and an eye appt with Dr. Guevara in October. She is considering switching to [facility] because she feels she is being "tossed around between offices". Continues to have frequent headaches and eye pain despite the acetazolamide. Continues with pain medication as needed for severe unbearable pain only. HPI performed by: Mack MCCRARY, October 07, 2019 2:06 PMTransitions of Care InboundProblem ReviewProblem List was reviewed and/or updated during this visit.Medication Reconciliation & ReviewMedication List was reviewed and/or updated during this visit, including review of any dwdu-tdi-vowqcnx medications, herbal therapies, and/or supplements.Allergy ReviewAllergy List was reviewed and/or updated during this visit.Review of Systems General: Complains of headache. Denies loss of appetite, chills, dizziness, fatigue, fever, feeling ill. Eyes: Complains of see HPI. Ears/Nose/Throat: Denies ear discharge. complaining of slight left ear acheCardiovascular: Denies chest pain, palpitations, feeling faint, peripheral edema. Respiratory: Denies cough, difficulty breathing, shortness of breath. Gastrointestinal: Denies nausea, vomiting, diarrhea, constipation, pain or discomfort. Neurologic: Denies weakness, slurred speech, feeling faint. Psychiatric: Complains of feeling stressed. Physical ExamGeneral Appearance: well nourished, well hydrated, in no acute distressEyes, External: conjunctivae and lids normal, EOMIExternal Ears: normal, no lesions or deformitiesOtoscopy: canals clear, tympanic membranes intact, no fluid, light reflex intact bilaterallyRespiratory, Auscultation: clear to auscultation bilaterally; no rales, rhonchi, or wheezesCardiovascular, Auscultation: S1, S2 audible; no murmur, rub, or gallop; RRRPeripheral Circulation: no clubbing, cyanosis, edema, or varicositiesAbdomen: soft, non-tender, no masses, bowel sounds normalGait & Station: normalSkin, Inspection: no rashes, lesions, or ulcerationsOrientation: oriented to time, place, and personMood & Affect: no depression, anxiety, or agitationJudgment & Insight: intactCare Management Plan Transitions of CareInboundRate Your HealthIn general, would you say your health is? GoodAssessment & Plan Problems:Added: Person consulting for explanation of examination or test findings (ICD-V65.8) (WFW04-J47.2) Assessment: Instructions: Labs reviewed in detail today. Consider adding a low dose of Vitamin D3 1000 units daily over the counter for preventative.Impaired fasting glycemia (ICD-790.21) (NVX09-B49.01) Assessment: Instructions: Recommend low carbohydrate diet: reduce pasta, bread, potatoes, rice. If you do eat carbohydrates, better choices are whole wheat and brown rice products. Recommend portion control and avoidance of soda and sugary foods. Increase physical activity and monitor weight. Repeat with additional labs in 3 months.Otalgia of left ear (JYL61-J85.02) Assessment: Instructions: No ear infection today. Likely allergies, start daily allergy medication over the counter.Changed:From: Dx of Obesity (ICD-278.00) (JUW13-E30.09) To: Morbid obesity (ICD-278.01) (WWX68-I18.01)Assessed:Benign intracranial hypertension (ICD-348.2) (REC39-H22.2) Assessment: Instructions: Continue per your specialists. Continue as needed pain medication for severe pain only. The medication you were prescribed is a controlled substance. We have reviewed alternative treatment options and agree this is the most appropriate treatment at this time. We reviewed risks of taking this medication, including but not limited to: addiction, sedation, overdose. Taking more than prescribed or taking with another controlled substance can result in overdose or , no drinking alcohol, no driving/operating heavy machinery while taking this medication. Keep out of the reach of childrenOther optic neuritis (ICD-377.39) (ILA03-W96.8) Assessment: Instructions: As above.BMI 45.0-49.9 (ICD-V85.42) (DHK94-G59.42) Assessment: Instructions: Recommend healthy lifestyle modification. Encourage portion control, healthy food choices, and increasing routine physical activity. Recommendation is for 150 minutes throughout the week of cardiovascular exercise.Morbid obesity (ICD-278.01) (XGO84-Z14.01) Assessment: Instructions: As above.Removed:upper respiratory infection (ICD-465.9) (UUM59-N54.9)Patient Instructions/Care Plan: Benign intracranial hypertension: Continue per your specialists. Continue as needed pain medication for severe pa in only. The medication you were prescribed is a controlled substance. We have reviewed alternative treatment options and agree this is the most appropriate treatment at this time. We reviewed risks of taking this medication, including but not limited to: addiction, sedation, overdose. Taking more than prescribed or taking with another controlled substance can result in overdose or , no drinking alcohol, no driving/operating heavy machinery while taking this medication. Keep out of the reach of childrenOther optic neuritis: As above.BMI 45.0-49.9: Recommend healthy lifestyle modification. Encourage portion control, healthy food choices, and increasing routine physical activity. Recommendation is for 150 minutes throughout the week of cardiovascular exercise.Morbid obesity: As above.Person consulting for explanation of examination or test findings: Labs reviewed in detail today. Consider adding a low dose of Vitamin D3 1000 units daily over the counter for preventative.Impaired fasting glycemia: Recommend low carbohydrate diet: reduce pasta, bread, potatoes, rice. If you do eat carbohydrates, better choices are whole wheat and brown rice products. Recommend portion control and avoidance of soda and sugary foods. Increase physical activity and monitor weight. Repeat with additional labs in 3 months.Otalgia of left ear: No ear infection today. Likely allergies, start daily allergy medication over the counter. Plan developed in collaboration with patient and/or familyMedications:ACETAZOLAMIDE ER 500 MG ORAL CAPSULE EXTENDED RELEASE 12 HOURVENTOLIN HFA 108 (90 BASE) MCG/ACT INHALATION AEROSOL SOLUTIONHYDROCODONE-ACETAMINOPHEN 5-325 MG ORAL TABLETZOLPIDEM TARTRATE 5 MG ORAL TABLETAllergies:* GEODON (Moderate)BACTRIM (Moderate)* TOPAMAX (Moderate)Orders:COMP METABOLIC PANEL [CPT-80810] HgBA1c [CPT-17209] Adult - Ofc Vst, EST, Level III [CPT-42815] Follow-Up Return to clinic: in 90 days for follow upAdditional Follow-Up: elevated sugar follow-upClinical Visit Summary Completed Name Value Range Interpretation Code Description Data Sondra rce(s) Supporting Document(s) ID Date Data Source [id number] 09/30/2019 08:52:00 AM EDT [facility] Name Value Range Interpretation Code Description Data Sondra rce(s) Supporting Document(s) HCT 42.7 % 36.0-47.0 N [facility] HGB 13.9 g/dL 12.0-15.5 N [facility] MCH 32.6 G/DL pg 32.0-36.5 N [facility] MCHC 29.8 PG % 27.0-33.0 N [facility] PLATELETS 259 10 10*3/mm3 150-450 N [facility] RBC 4.66 10 10*6/mm3 4.00-5.40 [facility] RDW 12.2 % 11.5-14.5 N [facility] WBC TOTAL 6.5 4.0-10.0 N [facility] ID Date Data Source [id number] 09/30/2019 08:52:00 AM EDT [facility] Name Value Range Interpretation Code Description Data Sondra rce(s) Supporting Document(s) VIT D25 TOT 25.1 ng/mL 30.0-100.0 L [facility] BG FASTING 103 mg/dL 70-100 H [facility] Health T4, FREE 1.06 ng/dL 0.76-1.46 N [facility] TSH 2.070 microintl units/mL 0.358-3.740 N [facility] ID Date Data Source [id number] 09/30/2019 08:51:23 AM EDT [facility] Labs In-House Blood TestsDate/Time Colle cted: September 30, 2019 8:51 AMTest Result Reference Range Normal ValueComments: blood draw done in offcie done in the right ac tolerated well Walter Spain MA, September 30, 2019 8:51 AMAssessment & Plan Orders:[id number] Vst-Est Level I [CPT-48048] [id number] - Venipuncture [CPT-85524] Name Value Range Interpretation Code Description Data Sondra rce(s) Supporting Document(s) ID Date Data Source [id number] 07/09/2019 01:39:42 PM EDT [facility] Measurements & CalculationsHeight: 67 inches (5 ft. 7 in.) 170.18 cm Weight: 319 pounds 8 oz. 145.23 kg Body Mass Index (BMI): 50.22BMI Interpretation: Morbidly ObeseBody Surface Area (BSA): 2.47Weight Management Education Done (Nutrition/Physical Activity)Vital SignsTemperature: 96.2F tympanic Pulse Rate: 89 beats/minuteRespiratory Rate: 18 respirations/minuteBlood Pressure: 113/78 left arm sitting automaticO2 Saturation: 97% room airVital Signs performed by: Lynn Lindsay LPN, July 09, 2019 1:51 PMInitial Intake Information from: patientRoom #: 2Smoking, Tobacco, Vaping or Smoke Exposure StatusSmoke Status: former smokerTobacco Use: NoDo you vape? NoPassive Smoke Exposure: NoMenstrual HistoryLast Menstrual Period (LMP): 05/18/2019Any possibility of ? YesHealthcare HistorySince your last office visit...Have you been admitted to the hospital? NoHave you been to an emergency room (ER) or urgent care clinic? NoHave you seen another healthcare provider? Yes - neuro and eye specialistHave you seen a dentist? Yes - Mercedes dentalRate Your HealthIn general, would you say your health is? GoodPain AssessmentAre you currently having any pain which... You would like your provider to address? Yes Affects your activity level? NoDepression Screening - PHQ-2Over the last two weeks, have you... Had little interest or pleasure in doing things? Not at all Been feeling down, depressed, or hopeless? Not at all PHQ-2 Score: 0Infectious Disease / Travel ScreeningRecent travel for you or any close contacts? NoHave you had any close contact with anyone diagnosed with or under investigation for COVID-19 (coronavirus)? NoHave you had any of the following symptoms recently? Fever? NoRespiratory symptoms: cough, cold, congestion, shortness of breath, difficulty breathing? NoPain AssessmentPain ScaleNumeric Rating Scale: 7 / 10Location: right eyeDuration: monthsCharacter/ Quality: pressureIs the pain radiating? YesTo what body part(s) is the pain radiating? side of headScreening, Brief Intervention, & Referral to Treatment (SBIRT)Pre-Screening Questions How many times have you have 4 or more drinks in a day? 0How many times have you used an illegal drug or used a prescription medication for a non-medical reason? 0Performed by: Lynn Lindsay LPN, July 09, 2019 1:47 PMPatient History Medical History:AsthmaAnxiety DisorderDepressionU T I-Recurrenthx of cuttingAbnormal Pap SmearDelivery of Child September,Surgical History:CholecystectomyTonsillectomyFamily History:Family History of AlcoholismFamily History of ArthritisFH of AnxietyFamily History of AsthmaFH DepressionFH DiabetesFH Lung/Respiratory DiseaseFH Psychiatric CareSocial/Personal History:Smoking History:Patient currently smokes every day.Patient has been counseled to quit.Occ smokes Chief Complaintletter for out of work History of Present Illness (HPI)29 yo female her for letter for [employer] stating that she is unable to work due to her optic neuritis. Pt state that Dr. Walsh was going to take her out of work but then her job ([employer]) closed so she didn't need the letter. Now [employer] is asking for a letter stating that she can not work at this time. Pt is incredibly frustrated with her neurologist. States that their office has pushed back her routine appt to August 2019 due to COVID19 pandemic. Pt is tearful in the office today stating she had a lumbar puncture last week but doesn't know the results. She states she is taking the Acetazolamide but feels daily like her right eye is being pushed outward from inside her skull. Reports daily pain, for which she is taking the hydrocodone. She has seen ophthalmology, who advised her to continue with neurology. Transitions of Care InboundProblem ReviewProblem List was reviewed and/or updated during this visit.Medication Reconciliation & ReviewMedication List was reviewed and/or updated during this visit, including review of any cdre-kla-huixxiq medications, herbal therapies, and/or supplements.Allergy ReviewAllergy List was reviewed and/or updated during this visit.Adult Preventive CareProvider Calculated and Reviewed all Clinical Protocols for patient today. Labs/Meds/Other Counseling-Nutrition and Physical Activity:BMI Interpretation: Morbidly Obese (07/09/2019) Counseling: Done (07/09/2019) Physical Activity: Done (07/09/2019)Review of Systems General: Complains of headache. Denies dizziness, fatigue, fever, feeling ill. Eyes: Complains of see HPI, eye pain. Denies blurring of vision, double vision, vision loss, eye swelling, sensitivity to light, redness. Cardiovascular: Denies chest pain, palpitations, feeling faint. Respiratory: Denies cough, difficulty breathing, shortness of breath. Gastrointestinal: Denies nausea, vomiting, diarrhea, pain or discomfort. Neurologic: Denies weakness, numbness/tingling, seizures, slurred speech, feeling faint, tremors. Psychiatric: Complains of feeling stressed. Physical ExamGeneral Appearance: well nourished, well hydrated, no mild distress, tearful, cupping her right eye with her handEyes, External: conjunctivae and lids normal, EOMIRespiratory, Auscultation: clear to auscultati on bilaterally; no rales, rhonchi, or wheezesCardiovascular, Auscultation: S1, S2 audible; no murmur, rub, or gallop; RRRAbdomen: soft, non-tender, no masses, bowel sounds normalGait & Station: normalOrientation: oriented to time, place, and personMood & Affect: anxious appearing, tearful, speech clearJudgment & Insight: intactCare Management Plan Transitions of CareInboundRate Your HealthIn general, would you say your health is? GoodAssessment & Plan Problems:Added: Benign intracranial hypertension (ICD-348.2) (RJX26-I60.2) Assessment: Instructions: Out of work at this time. Will reach out to neurology to inquire about getting your follow-up appointment with that office scheduled sooner.Patient Instructions/Care Plan: Benign intracranial hypertension: Out of work at this time. Will reach out to neurology to inquire about getting your follow-up appointment with that office scheduled sooner. Plan developed in collaboration with patient and/or familyMedications:ACETAZOLAMIDE ER 500 MG ORAL CAPSULE EXTENDED RELEASE 12 HOURVENTOLIN HFA 108 (90 BASE) MCG/ACT INHALATION AEROSOL SOLUTIONHYDROCODONE-ACETAMINOPHEN 5-325 MG ORAL TABLETZOLPIDEM TARTRATE 5 MG ORAL TABLETMedication Changes:Added: ACETAZOLAMIDE ER 500 MG ORAL CAPSULE EXTENDED RELEASE 12 HOUR-Take 1 tablet po TIDAllergies:* GEODON (Moderate)BACTRIM (Moderate)* TOPAMAX (Moderate)Orders:Adult - Ofc Vst, EST, Level II [CPT-08752] Follow-Up Return to clinic: as needed Clinical Visit Summary Completed Name Value Range Interpretation Code Description Data Sondra rce(s) Supporting Document(s) ID Date Data Source [id number] 06/07/2019 09:20:03 AM EST [facility] Measurements & CalculationsHeight: 67 inches (5 ft. 7 in.) 170.18 cm Weight: 318 pounds 144.55 kg Body Mass Index (BMI): 49.99BMI Interpretation: Morbidly ObeseBody Surface Area (BSA): 2.46Weight Management Education Done (Nutrition/Physical Activity)Vital SignsTemperature: 97.8F oral Pulse Rate: 90 beats/minuteRespiratory Rate: 18 respirations/minuteBlood Pressure: 130/83 left arm sitting automaticO2 Saturation: 98% room airVital Signs performed by: Lynn Lindsay LPN, June 07, 2019 9:32 AMVital Signs performed by: Mack MCCRARY, June 07, 2019 9:38 AMInitial Intake Information from: patientRoom #: 9Smoking, Tobacco, Vaping or Smoke Exposure StatusSmoke Status: former smokerTobacco Use: NoDo you vape? NoPassive Smoke Exposure: NoMenstrual HistoryLast Menstrual Period (LMP): 05/18/2019Any possibility of ? NoHealthcare HistorySince your last office visit... Have you been admitted to the hospital? NoHave you been to an emergency room (ER) or urgent care clinic? Yes - [facility] ER fluEmergency room (ER) or urgent care date reported today: 05/23/2019Have you seen another healthcare provider? Yes - neuro and eye specialistHave you seen a dentist? Yes - [facility] dentalRate Your HealthIn general, would you say your health is? GoodPain AssessmentAre you currently having any pain which... You would like your provider to address? No Affects your activity level? NoDepression Screening - PHQ-2Over the last two weeks, have you... Had little interest or pleasure in doing things? Not at all Been feeling down, depressed, or hopeless? Not at all PHQ-2 Score: 0Anxiety Screening - STONE-2Over the last two weeks, have you been... Feeling nervous, anxious, or on edge? Not at all Unable to stop or control worrying? Not at all STONE-2 Score: 0Infectious Disease / Travel ScreeningRecent travel for you, your family, and/or any sexual partners? NoScreening, Brief Intervention, & Referral to Treatment (SBIRT)Pre-Screening Questions How many times have you have 4 or more drinks in a day? 0How many times have you used an illegal drug or used a prescription medication for a non-medical reason? 0Performed by: Lynn Lindsay LPN, June 07, 2019 9:26 AMPatient History Medical History:AsthmaAnxiety DisorderDepressionU T I-Recurrenthx of cuttingAbnormal Pap SmearDelivery of Child September,Surgical History:CholecystectomyTonsillectomyFamily History:Family History of AlcoholismFamily History of ArthritisFH of AnxietyFamily History of AsthmaFH DepressionFH DiabetesFH Lung/Respiratory DiseaseFH Psychiatric CareSocial/Personal History:Smoking History:Patient currently smokes every day.Patient has been counseled to quit.Occ smokes Chief Complainter fuHistory of Present Illness (HPI)29 yo female here for follow-up for ER and to get refills on meds. Pt has not been seen in a few months.Pt reports flu illness, was seen at [facility] then [facility] ER for ongoing symptoms. Reports occasional productive cough, improving and no concerns. Pt is requesting refill of Ambien, takes as needed. Reports some life stressors recently and is not sleeping as well as previously. States this has worked well for her in the past.Pt follows with ophthalmology and neurology for optic neuritis and headaches. Record releases signed today. Pt reports intermittent severe left eye pain when optic neuritis flares. Pt reports using hydrocodone-acetaminophen only for extreme flare ups. Otherwise takes tylenol as needed with mild improvement but states it doesn't take the pain away. HPI performed by: Mack MCCRARY, June 07, 2019 9:39 AMTransitions of Care InboundProblem ReviewProblem List was reviewed and/or updated during this visit.Medication Reconciliation & ReviewMedication List was reviewed and/or updated during this visit, including review of any yfiu-kcm-fydlwfd medications, herbal therapies, and/or supplements.Allergy ReviewAllergy List was reviewed and/or updated during this visit.Adult Preventive CareProvider Calculated and Reviewed all Clinical Protocols for patient today. Labs/Meds/Other Counseling-Nutrition and Physical Activity:BMI Interpretation: Morbidly Obese (06/07/2019) Counseling: Done (06/07/2019) Physical Activity: Done (06/07/2019)Review of Systems General: Denies chills, dizziness, fatigue, fever, feeling ill. Eyes: Complains of see HPI, eye pain. Denies blurring of vision, double vision, vision loss. Cardiovascular: Denies chest pain, palpitations, feeling faint. Respiratory: Complains of see HPI, cough. Denies shortness of breath, coughing up blood, wheezing. Gastrointestinal: Denies nausea, vomiting, diarrhea, pain or discomfort. Physical ExamGeneral Appearance: well nourished, well hydrated, no acute distressEyes, External: conjunctivae and lids normal, EOMIRespiratory, Auscultation: clear to auscultation bilaterally; no rales, rhonchi, or wheezesRespiratory, Effort: no intercostal retractions or use of accessory musclesCardiovascular, Auscultation: S1, S2 audible; no murmur, rub, or gallop; RRRAbdomen: soft, non-tender, no masses, bowel sounds normalGait & Station: normalOrientation: oriented to time, place, and personMood & Affect: no depression, anxiety, or agitationJudgment & Insight: intactCare Management Plan Transitions of CareInboundRate Your HealthIn general, would you say your health is? GoodAssessment & Plan Problems:Added: BMI 45.0-49.9 (ICD-V85.42) (ICD10- Z68.42) Assessment: Instructions: Fasting labs have been ordered for you today. When labs are drawn, please ensure that you have had nothing to eat or drink for 8-10 hours prior to the blood drawn. Water or black coffee is OK to have before the blood draw.Changed:From: Dx of upper respiratory infection (ICD- 465.9) (GVZ06-T18.9) To: upper respiratory infection (ICD-465.9) (ICD10- J06.9)Assessed:Obesity (ICD-278.00) (WUH91-V88.09) Assessment: Instructions: As above.Other optic neuritis (ICD-377.39) (KBM92-U69.8) Assessment: Instructions: Continue per specialists. Record releases signed today. Pain medication for severe pain only. Otherwise, please use tylenol and ibuprofen over the counter. The medication you were prescribed today is a controlled substance. We have reviewed alternative treatment options and agree this is the most appropriate treatment at this time. We reviewed risks of taking this medication, including but not limited to: addiction, sedation, overdose. Taking more than prescribed or taking with another controlled substance can result in overdose or , no drinking alcohol, no driving/operating heavy machinery while taking this medication. Keep out of the reach of childrenInsomnia (ICD-780.52) (XOC86-A74.00) Assessment: Instructions: Ambien prescribed for as needed. As above regarding controlled substance.upper respiratory infection (ICD-465.9) (JYY96-G27.9) Assessment: Instructions: Improving. Monitor for worsening symptoms.Removed:Other optic neuritis (ICD-377.39) (QTI43-J34.8), Dermatitis, unspecified (XGS39-Z97.9), Encounter for screening for other metabolic disorders (XVI06-P42.228), bronchitis (ICD-466.0) (ALF69-H98.9), Viral disease (ICD-079.99) (SMM08-D88.9), BMI 35.0-35.9 (ICD-V85.35) (APN43-K29.35), Post traumatic stress disorder (ICD- 309.81) (MHZ18-E75.10), Strain of muscle and tendon of head, sequela & Strain of muscle, fascia and tendon at neck level, sequela (ICD-847.0) (LQA08-V35.11xS), upper respiratory infection (ICD-465.9) (SZR85-M07.9), Migraine headache (ICD- 346.90) (FUQ88-Z49.909), ABDOMINAL PAIN (ICD-789.00) (OJR84-L20.9), HEMORRHOIDS (ICD-455.6) (HPX32-K75.9), ANXIETY DISORDER (ICD-300.00) (GXV04-Q24.9), OVARIAN CYST, RIGHT (ICD-620.2) (TAL04-E44.20), RENAL CALCULUS (ICD-592.0) (ICD10- N20.0), MOOD DISORDER NOS (ICD-296.90) (NAA33-I37), P T S D (ICD-309.81), MOOD DISORDER NOS (ICD-296.90) (NQL47-H47), P T S D (ICD-309.81), MOOD DISORDER NOS (ICD-296.90) (JPW40-H23), P T S D (ICD-309.81), O C D (ICD-300.3) (NAF64-W60), MOOD DISORDER NOS (ICD-296.90) (PCF76-S99), MOOD DISORDER NOS (ICD-296.90) (RRF55-M43), MOOD DISORDER NOS (ICD-296.90) (OCG57-D24), O C D (ICD-300.3) (LBZ46-C75), O C D (ICD-300.3) (DGG39-H73), MOOD DISORDER NOS (ICD-296.90) (ICD 10-F39), MOOD DISORDER NOS (ICD-296.90) (GHF57-K41), O C D (ICD-300.3) (ICD10- F42), MOOD DISORDER NOS (ICD-296.90) (UBV87-I60), MOOD DISORDER NOS (ICD-296.90) (RYN51-M46), O C D (ICD-300.3) (AVN24-P97), LONG-TERM (CURRENT) USE OF OTHER MEDICATIONS (ICD-V58.69), SCREENING FOR LIPOID DISORDERS (ICD-V77.91) (ICD10- Z13.220), EPIDERMOID CYST OCCIPUT (ICD-706.2) (QNG27-C80.3), Metabolic syndrome X (ICD-277.7) (CVV10-J35.81)Patient Instructions/Care Plan: BMI 45.0-49.9: Fasting labs have been ordered for you today. When labs are drawn, please ensure that you have had nothing to eat or drink for 8-10 hours prior to the blood drawn. Water or black coffee is OK to have before the blood draw.Obesity: As above.Other optic neuritis: Continue per specialists. Record releases signed today. Pain medication for severe pain only. Otherwise, please use tylenol and ibuprofen over the counter. The medication you were prescribed today is a controlled substance. We have reviewed alternative treatment options and agree this is the most appropriate treatment at this time. We reviewed risks of taking this medication, including but not limited to: addiction, sedation, overdose. Taking more than prescribed or taking with another controlled substance can result in overdose or , no drinking alcohol, no driving/operating heavy machinery while taking this medication. Keep out of the reach of childrenInsomnia: Ambien prescribed for as needed. As above regarding controlled substance.upper respiratory infection: Improving. Monitor for worsening symptoms. Plan developed in collaboration with patient and/or familyMedications:VENTOLIN HFA 108 (90 BASE) MCG/ACT INHALATION AEROSOL SOLUTIONHYDROCODONE-ACETAMINOPHEN 5-325 MG ORAL TABLETZOLPIDEM TARTRATE 5 MG ORAL TABLETMedication Changes:Added: VENTOLIN HFA 108 (90 BASE) MCG/ACT INHALATION AEROSOL SOLUTION-2 puffs as needed every 4-6hrsRefilled:HYDROCODONE-ACETAMINOPHEN 5-325 MG ORAL TABLET-1 po 1 4-6 hours prn severe pain; MDD 3 Qty: 21[Tablet] Refills: 0 Method: ElectronicZOLPIDEM TARTRATE 5 MG ORAL TABLET-1 po 1 hour priior to sleeping prn insmonia; MDD 1 Qty: 30[Tablet] Refills: 0 Method: ElectronicRemoved:ROBAXIN 500 MG ORAL TABLET-1 po tid prn spasms Qty: 90[Tablet] Refills: 3, COLACE 100 MG ORAL CAPSULE-1 po tid prn constipation Qty: 90[Capsule] Refills: 3, WELLBUTRIN SR 100 MG ORAL TABLET EXTENDED RELEASE 12 HOUR-One a day Qty: 30[Tablet] Refills: 2, ESGIC 50-325-40 MG ORAL TABLET-1 iwith onset of migraine- repeat in 1 hour if no relief Qty: 60[Tablet] Refills: 2, LEXAPRO 20 MG ORAL TABLET-One a day Qty: 30[Tablet] Refills: 1, SUMATRIPTAN SUCCINATE 100 MG ORAL TABLET-1 po with onset of migraine- may repeat in 1 hour iif no relief; Max of 2 per day or 4 per week Qty: 16[Tablet] Refills: 5Allergies:* GEODON (Moderate)BACTRIM (Moderate)* TOPAMAX (Moderate)Orders:COMP METABOLIC PANEL [CPT-96178] CBC W/DIFF [CPT-70731] LIPID PANEL [CPT-86020] TSH [CPT-15066] T-4 free [CPT-33199] Vitamin D 250H Unspecified [CPT-43770] Adult - Ofc Vst, EST, Level III [CPT-94757] Follow-Up Return to clinic: in 3 months for preventive care visitAdditional Follow-Up: annual PEClinical Visit Summary CompletedMedications:ZOLPIDEM TARTRATE 5 MG ORAL TABLET (ZOLPIDEM TARTRATE) 1 po 1 hour priior to sleeping prn insmonia; MDD 1 #30[Tablet] x 0 Route:ORAL Entered and Authorized by: Mack MCCRARY Method used: Electronically to [facility] (pklafs) [address] [place] [address] Note to Pharmacy: Route: ORAL; RxID: [id number] 5-325 MG ORAL TABLET (HYDROCODONE- ACETAMINOPHEN) 1 po 1 4-6 hours prn severe pain; MDD 3 #21[Tablet] x 0 Route:ORAL Entered and Authorized by: Mack MCCRARY Method used: Electronically to [facility] (retail) [address] [place] [address] Fax: Note to Pharmacy: Route: ORAL; RxID: [id number] SUMATRIPTAN SUCCINATE 100 MG ORAL TABLET (SUMATRIPTAN SUCCINATE) 1 po with onset of migraine- may repeat in 1 hour iif no relief; Max of 2 per day or 4 per week #16[Tablet] x 5 Route:ORAL Entered by: Lynn Lindsay LPN Authorized by: Dewey Walsh MD Method used: Electronically to [facility] (retail) [address] [place] [address] RxID: [id number] LEXAPRO 20 MG ORAL TABLET (ESCITALOPRAM OXALATE) One a day #30[Tablet] x 1 Route:ORAL Entered by: Lynn Lindsay LPN Authorized by: Nicki Ellis MD Method used: Electronically to [facility] (retail) [address] [place] [address] RxID: [id number] ESGIC 50-325-40 MG ORAL TABLET ([id number]) 1 iwith onset of migraine- repeat in 1 hour if no relief #60[Tablet] x 2 Route:ORAL Entered by: Lynn Lindsay LPN Authorized by: Dewey Walsh MD Method used: Electronically to [facility] (retail) [place] [address] RxID: [id number] WELLBUTRIN SR 100 MG ORAL TABLET EXTENDED RELEASE 12 HOUR (BUPROPION HCL) One a day #30[Tablet] x 2 Route:ORAL Entered by: Lynn Lindsay LPN Authorized by: Nicki Ellis MD Method used: Electronically to [facility] (retail) [address] [place] [address] Fax: RxID: [id number] COLACE 100 MG ORAL CAPSULE (DOCUSATE SODIUM) 1 po tid prn constipation #90[Capsule] x 3 Route:ORAL Entered by: Lynn Lindsay LPN Authorized by: Dewey Walsh MD Method used: Electronically to [facility] (retail) [address] [place] [address] Fax: RxID: [id number] ROBAXIN 500 MG ORAL TABLET (METHOCARBAMOL) 1 po tid prn spasms #90[Tablet] x 3 Route:ORAL Entered by: Lynn Lindsay LPN Authorized by: Dewey Walsh MD Method used: Electronically to [facility] (retail) [address] [place] [address] Fax: RxID: [id number]][Immunization Management] Name Value Range Interpretation Code Description Data Sondra rce(s) Supporting Document(s) Procedure Vital Signs ID Date Data Source UNK Name Value Range Interpretation Code Description Data Source(s) Body weight 4722 [oz_av] 4722 [oz_av] [facility] ([facility]) Systolic blood pressure 121 mm[Hg] 121 mm[Hg] A [facility] ([facility]) Body mass index (BMI) [Ratio] 46.2 kg/m2 46.2 k g/m2 [facility] ([facility]) Body height 67 [in_i] 67 [in_i] [facility] ([facility]) Diastolic blood pressure 81 mm[Hg] 81 mm[Hg] [facility] ([facility]) Body weight 5126.08 [oz_av] 5126.08 [oz_av] ATH JLUIS ([facility]) Systolic blood pressure 117 mm[Hg] 117 mm[Hg] A [facility] ([facility]) Body height 67 [in_i] 67 [in_i] [facility] ([facility]) Diastolic blood pressure 82 mm[Hg] 82 mm[Hg] [facility] ([facility]) Body weight 5072 [oz_av] 5072 [oz_av] [facility] ([facility]) Systolic blood pressure 119 mm[Hg] 119 mm[Hg] A [facility] ([facility]) Body height 67 [in_i] 67 [in_i] [facility] ([facility]) Diastolic blood pressure 82 mm[Hg] 82 mm[Hg] [facility] ([facility]) Body weight 5112 [oz_av] 5112 [oz_av] [facility] ([facility]) Systolic blood pressure 113 mm[Hg] 113 mm[Hg] A [facility] ([facility]) Body height 67 [in_i] 67 [in_i] [facility]BIN ([facility]) Diastolic blood pressure 78 mm[Hg] 78 mm[Hg] [facility] ([facility]) Body weight 5088 [oz_av] 5088 [oz_av] [facility] ([facility]) Systolic blood pressure 130 mm[Hg] 130 mm[Hg] A [facility] ([facility]) Body height 67 [in_i] 67 [in_i] [facility]BIN ([facility]) Diastolic blood pressure 83 mm[Hg] 83 mm[Hg] [facility] ([facility]) Central corneal thickness Right cornea Pachymetry 502 um 502 um MED[facility] ([facility] ) Central corneal thickness Left cornea Pachymetry 503 um 503 um [facility] ([facility]) Intraocular pressure Left eye 12 mm[Hg] 12 mm[ Hg] [facility] ([facility]) Intraocular pressure Right eye 14 mm[Hg] 14 mm [Hg] [facility] ([facility]) Ap 09:31 Am Patient Treatment Plan of Care Planned Activity Planned Date Details Description Data Source (s) 24 HR venlafaxine 37.5 MG Extended Release Oral Capsule [facility] ([facility]) topiramate 25 MG Oral Tablet [facility] ([facility]) Pseudoephedrine Hydrochloride 30 MG Oral Tablet [Sudogest] [facility] ([facility]) Prednisone 20 MG Oral Tablet [facility] ([facility]) Acetaminophen 325 MG / Oxycodone Hydrochloride 5 MG Oral Tablet ROB[facility] ([facility]) Oseltamivir 75 MG Oral Capsule [facility] ([facility]) fluticasone propionate 50 mcg/actuation nasal spray,suspension [facility] ([facility]) Diclofenac Sodium 50 MG Delayed Release Oral Tablet [facility] ([facility]) benzonatate 100 MG Oral Capsule ROB[facility] ([facility]) Azithromycin 250 MG Oral Tablet [facility] ([facility]) Amoxicillin 875 MG / Clavulanate 125 MG Oral Tablet [facility] ([facility])
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
[2020-06-03] MEDS ORDERED: IBUPROFEN 800 MG TAB PO ONE (13:15)
[2020-06-03 13:16] VITALS: BP 118/72
--- OUTSIDE RECORDS SUMMARY | 2020-06-03 13:50 | CCD ---
Author Author [facility] Organization [facility] Address Unknown Phone Unavailable Support Name Relationship Address Phone Mack Jacobo Next Of Kin [address] [place] [address] Dewey Walsh MD Next Of Kin [address] [place] [address] DENIS Next Of Kin [address] [place] [address] Cain Love MD Next Of Kin [address] [place] [address] Nori Atkinson Next Of Kin [address] [place] [address] AUNTIE DONALD[employer] PRETZELS Next Of Kin [address] [place] [address] [place] [address] UN Cynthia Bedoya MD Next Of Kin [address] [place], [place] [id number] Clau Lewis Next Of Kin [address] [place] [address] [address] [employer] Next Of Kin [address] [place] [address] ALLY Mujica Debbie Next Of Kin [address] [place] [address] [address] [employer] Next Of Kin [address] [place] [address] SERGEY ANTONY Next Of Kin [address] [place], [place] [id number] Nydia Mullins Next Of Kin [address] [facility] [place] [address] Mandy Kaiser Next Of Kin [address] [place] [address] UE Next Of Kin Unknown Unavailable UNEMPLOYED Next Of Kin Unknown UNK Next Of Kin Unknown Unavailable ST Next Of Kin Unknown Unavailable SAVANA CHICASHAN Next Of Kin [address] [address] ANIL COMBS Next Of Kin [address] [place] [address] Care Team Providers Care Advertisement Compositor Name Role Phone BRISCOE, KIN MACK RPA-C [...] Unavailable Steff WALSH MD Unavailable Unavailable Steff AWLSH MD Unavailable Unavailable Steff WALSH MD Unavailable [...] CHERIE, Steff PALOMO MD Unavailable Unavailable CHERIE, tSeff PALOMO MD Unavailable Unavailable CHERIE, Steff PALOMO [...] Unavailable CHERIE, Steff PALOMO MD Unavailable Unavailable CHEIRE, Steff PALOMO MD Unavailable Unavailable CHERIE, Steff [...] KIN MACK RPA-C Unavailable Unavailable BRISCOE, KIN MCAK RPA-C Unavailable Unavailable BRISCOE, KIN MACK RPA-C [...] is protected by Article 27-F of the [facility] Public Health law. If you continue you may have access to information: Regarding HIV / AIDS; Provided by facilities licensed or operated by the [facility] Office of Mental Health; or Provided by the [facility] Office for People With Developmental Disabilities. If such information is present, then the following [facility] mandated warning applies: This information has been [...] law may result in a fine or halfway sentence or both. A general authorization for the release of medical or other information is NOT sufficient authorization for further disc losure. Family History Family Member Name Family Member Gender Family Member Status Date o f Status Description Data Source(s) Unknown Male Problem MEDENT ([facility]) Encounters Encounter Providers Location Date Indications Data Source(s ) IVORY Richard: [address] [facility] [facility] [address], [place] [address], Ph. Attender: MACK DODSON [facility] Medical 02/15/2020 12:00:00 AM EST ROBBIN ([facility]) Outpatient Attender: STAR GURROLA [facility] 01/12 06:31:04 PM EDT [facility] Attender: MACK DODSON [facility] 01/31/2020 06:31:01 PM EDT [facility] Attender: STAR GURROLA [facility] 01/12 01:49:01 PM EDT [facility] Attender: STAR UGRROLA [facility] 01/12 10:07:00 AM EDT [facility] Attender: STAR GURROLA [facility] 09/2019 03:05:00 PM EDT [facility] Attender: STAR GURROLA [facility] 05/2019 05:20:00 PM EDT [facility] Attender: STAR GURROLA [facility] 05/2019 05:19:00 PM EDT [facility] Attender: STAR GURROLA [facility] 05/2019 02:49:59 PM EDT [facility] Attender: STAR GURROLA [facility] 12/14 08:59:02 AM EDT [facility] Attender: MACK BRISCOE RPA-C [facility] 01/04/2020 08:59:00 AM EDT [facility] Attender: RFROST BRISCOE PA MACK [facility] 12/14 08:54:02 AM EDT [facility] Attender: MACK BRISCOE RPA-C [facility] 01/04/2020 08:54:00 AM EDT [facility] Attender: RFROST BRISCOE PA MACK [facility] 12/14 05:21:00 PM EDT [facility] Attender: RFROST BRISCOE PA MACK [facility] 11/2019 04:32:00 PM EDT [facility] Attender: RFROST BRISCOE PA MACK [facility] 11/13 05:24:02 PM EDT [facility] Attender: RFROST BRISCOE PA MACK [facility] 11/13 04:27:01 PM EDT [facility] Attender: RFROST BRISCOE DEMETRA MACK [facility] 11/12 04:51:00 PM EDT [facility] 008 11/11/2019 11:57:00 AM EDT - 11/11/2019 11:57:00 AM EDT Lab test [facility] Lab test Outpatient Attender: RFJOHN BRISCOE PA MACK [facility] 10/13 05:28:00 PM EDT [facility] Attender: RFJOHN BRISCOE PA MACK [facility] 10/12 05:15:03 PM EDT [facility] Attender: MACK REYESST RPA-C [facility] 10/28/2019 02:23:01 PM EDT [facility] Attender: RFROST BRISCOE PA MACK [facility] 10/12 02:23:00 PM EDT [facility] Attender: MACK BRISCOE RPA-C [facility] 10/28/2019 02:20:01 PM EDT [facility] Attender: RFROST BRISCOE PA MACK [facility] 10/12 02:19:03 PM EDT [facility] Attender: RFROST BRISCOE PA MACK [facility] 10/12 04:37:01 PM EDT [facility] Attender: RFROST BRISCOE PA MACK [facility] 11/2019 09:21:01 AM EDT [facility] Attender: RFROST BRISCOE PA MACK [facility] 09/13 04:53:00 PM EDT [facility] Attender: MACK BRISCOE RPA-C [facility] 10/07/2019 02:17:01 PM EDT [facility] Attender: RFROST BRISCOE PA MACK [facility] 09/13 02:17:00 PM EDT [facility] Attender: MACK BRISCOE RPA-C [facility] 10/07/2019 02:16:02 PM EDT [facility] Attender: RFROST BRISCOE PA MACK [facility] 09/12 11:41:00 AM EDT [facility] Attender: RFROST BRISCOE PA MACK [facility] 09/12 02:43:01 PM EDT [facility] Attender: RFROST BRISCOE PA MACK [facility] 09/12 10:17:01 AM EDT [facility] Attender: RFROST BRISCOE PA MACK [facility] 08/13 11:55:02 AM EDT [facility] Attender: RFROST BRISCOE PA MACK [facility] 08/13 10:42:02 AM EDT [facility] Attender: RFROST BRISCOE PA MACK [facility] 11/2019 12:11:01 PM EDT [facility] Attender: RFROST BRISCOE PA MACK [facility] 11/2019 11:03:03 AM EDT [facility] Attender: RFROST BRISCOE PA MACK [facility] 08/2019 04:36:02 PM EDT [facility] Attender: RFROST BRISCOE PA MACK [facility] 07/14 09:09:00 AM EDT [facility] Attender: RFROST BRISCOE PA MACK [facility] 040 05/2019 10:25:31 AM EDT [facility] Attender: [facility] 06/14 02:29:01 PM EDT [facility] Attender: MACK BRISCOE EMELINA-C [facility] 07/09/2019 02:28:04 PM EDT [facility] Attender: MACK LUIS FELIPE RPA-C 07/05/2019 10:36:00 AM EDT [facility] Referrer: Reji Snow MD 06/21/2019 11:31:00 AM EDT [facility] Outpatient Attender: DEWEY WALSH MD 06/18/2019 10:57:00 A [facility] Outpatient Attender: DEWEY WALSH MD 06/10/2019 12:32:03 P [facility] Outpatient Attender: DEWEY WALSH MD 06/10/2019 12:32:01 P [facility] Outpatient Attender: DEWEY WALSH MD 06/07/2019 09:01:05 P [facility] Outpatient Attender: DEWEY WALSH MD 06/07/2019 10:10:02 A [facility] Outpatient Attender: DEWEY WALSH MD 06/07/2019 09:06:00 A [facility] Outpatient Attender: DEWEY WALSH MD 06/07/2019 09:05:00 A [facility] Outpatient Attender: DEWEY WALSH MD 06/07/2019 09:03:00 A [facility] Outpatient Referrer: Reji Snow MD 06/02/2019 02:06:00 PM [facility] Outpatient Attender: DEWEY WALSH MD 04/27/2019 03:24:01 P [facility] Outpatient Attender: DEWEY WALSH MD 04/27/2019 08:40:01 A [facility] Outpatient Attender: DEWEY WALSH MD 04/26/2019 11:27:00 A [facility] Outpatient Attender: DEWEY WALSH MD 04/26/2019 11:23:01 A [facility] Outpatient Referrer: Reji Snow MD 04/22/2019 06:02:00 AM EST [facility] Immunizations Vaccine Date Status Description Data Source(s) New in 2011. IIV4 02/15/2020 10:45:00 AM EST completed 0.5 mL ROBBIN ([facility]) Medications Medication Brand Name Start Date Product [...] DAILY DOSE = THREE TABLETS SOLD: 11/29/2019 Jyoti Salinas gs 5-325 mg 11/17/2019 12:00:00 AM EDT [...] MAXIMUM DAILY DOSE = 3 SOLD: 09/09/2019 [facility] 5 mg 08/17/2019 12:00:00 AM EDT [...] Drugs fluticasone propionate 50 mcg/actuation nasal spray,suspension [id number] completed fluticasone propionate 0.05 MG/ACTUAT Metered Dose Nasal [place] RICHARDSON ([facility]) topiramate 25 MG Oral Tablet topiramate 25 mg tablet topiramate 25 mg tablet completed topiramate 25 MG Oral Tablet [place]DSON ([facility]) Diclofenac Sodium 50 MG Delayed Release Oral Tablet diclofenac sodium 50 mg tablet,delayed release diclofenac sodium 50 mg tablet,delayed release completed diclofenac sodium 50 MG Lakisha yed Release Oral Tablet RICHARDSON ([facility]) benzonatate 100 MG Oral Capsule benzonatate 100 mg cap ritchie benzonatate 100 mg capsule completed benzonatate 10 0 MG Oral Capsule RICHARDSON ([facility]) 24 HR venlafaxine 37.5 MG Extended Relea se Oral Capsule venlafaxine ER 37.5 mg capsule,extended release 24 hr venlafaxine ER 37.5 mg capsule,extended release 24 hr completed 24 HR v enlafaxine 37.5 MG Extended Release Oral Capsule RICHARDSON ([facility]) Pseudoephedrine Hydrochloride 30 MG Oral Tablet [Sudogest] Sudogest 30 mg tablet Sudogest 30 mg tablet completed pseudoephedrine hydrochloride 30 MG Oral Tablet [Sudogest] RICHARDSON ([facility]) Prednisone 20 MG Oral Tablet prednisone 20 mg tablet prednisone 20 mg tablet completed prednisone 20 MG Oral Tablet [place]ON ([facility]) Acetaminophen 325 MG / Oxycodone Hydroch loride 5 MG Oral Tablet oxycodone- acetaminophen 5 mg-325 mg tablet oxycodone-acetaminophen 5 mg-325 mg tablet completed acetaminop hen 325 MG / oxycodone hydrochloride 5 MG Oral Tablet ROBBIN ([facility]) Amoxicillin 875 MG / Clavulanate 125 MG Oral Tablet amoxicillin 875 mg-potassium clavulanate 125 mg tablet amoxicillin 875 mg-potassium clavulanate 125 mg tablet completed amoxici llin 875 MG / clavulanate 125 MG Oral Tablet ROBBIN ([facility]) Oseltamivir 75 MG Oral Capsule oseltamivir 75 mg capsu le oseltamivir 75 mg capsule completed oseltamivir 75 MG Oral Capsule ROBBIN ([facility]) Azithromycin 250 MG Oral Tablet azithromycin 250 mg ta blet azithromycin 250 mg tablet completed azithromycin 25 0 MG Oral Tablet ROBBIN ([facility]) Insurance Providers Payer name Policy type / Coverage type Policy ID Covered alliance party ID Covered alliance party's relationship to hernandez Policy Hernandez Plan Information BRANDYN [id number] SP [id number] [place] CARE [place] O [id number] S [id number] EMEDNY [id number] SP [id number] Managed Care [place] P [id number] S [id number] Medicaid S [id number] S [id number] Medicaid S [id number] S [id number] BRANDYN I [id number] Self [id number] Managed Care [place] P [id number] S [id number] Managed Care [place] P [id number] S [id number] Managed Care Brandyn P [id number] S [id number] [facility] I [id number] Self [id number] Medicaid S [id number] S [id number] [facility] COMMUNITY PLAN MCDO [id number] SP [id number] Managed Care - Community Plan United [employer] P [id number] S [id number] Medicaid S [id number] S [id number] Managed Care - Community Plan United Healthcare P [id number] S [id number] Pupil Benefits (pr) Commercial [id number] Family Dependent [id number] Medicaid [place] Medigap Part B [id number] Family Dependent [id number] Ghi/Emblem HLTH (pr) Medigap Part B [id number] Family Depende nt [id number] BS Jayden Hmo Blue Option Medigap Part B [id number] Self [id number] [facility] Community Plan Commercial [id number] Self [id number] [facility](MCAID) O [id number] S [id number] Medicaid S [id number] S [id number] Managed Care - Community Plan [facility] P [id number] S [id number] [facility] Demond Health Maintenance Organization (HMO) Self [employer] COMMUNITY PLAN MCDO [id number] SP [id number] BLUE [employer]OSS [place] PLAN [id number] SP [id number] Medicaid [place] Medigap Part B Self c Community Plan Commercial Self UNHC COMMUNITY PLAN MCDO [id number] SP [id number] [facility] MEDICAID JAYDEN HMO [id number] S [id number] Medicaid S [id number] S [id number] [facility] I [id number] Self [id number] MEDICAID [id number] SP [id number] Managed Care - Community Plan [facility] P [id number] S [id number] Self Pay O UNAVAILABLE S UNAVAILA BLE Managed Care - Community Plan [facility] P [id number] S [id number] Managed Care BCBS O [id number] S [id number] HMO BLUE [id number] SP [id number] [employer] BCBS P [id number] S [id number] Problems, Conditions, and Diagnoses Code Display Name Description Problem Type Effective Dates Data Source(s) [id number] Long-term current use of opiate analgesi c drug Long-term Current Use of Opiate Analgesic Drug Problem 02/15/2020 12:00:00 AM EST ATH JLUIS ([facility]) [id number] Abnormal cytology findings Abnormal Cytology Findings Problem 01/27/2020 05:52:03 PM EDT ROBBIN ([facility]) [id number] Asthma Asthma Problem 01/27/2020 05:52:03 PM ED T RICHARDSON ([facility]) [id number] Depressive disorder Depressive Disorder Problem 1 05:52:03 PM EDT RICHARDSON ([facility]) 788.41 Increased frequency of urination Increased frequency o f urination 10/28/2019 02:18:18 PM EDT [facility] 70659574 Generalized edema Generalized edema 10/28/2019 02:18:18 PM EDT [facility] 402700059 Increased frequency of urination Increased Frequ ency of Urination Problem 10/28/2019 12:00:00 AM EDT - 02/15/2020 12:00:00 AM TARAH SIEGEL ([facility]) [id number] Edema, generalized Edema, Generalized Problem 12:00:00 AM EDT ROBBIN ([facility]) [id number] Otalgia of left ear Otalgia of left ear 10/07/2019 02:15:45 PM EDT [facility] R73.01 Impaired fasting glucose Impaired fasting glycemia 10/07/2019 02:15:45 PM EDT [facility] V65.8 Person consulting for explanation of exa mination or test findings Person consulting for explanation of examination or test findings 10/07/2019 02:15:45 PM EDT [facility] 278.01 Morbid obesity Morbid obesity 10/07/2019 02:15: 45 PM EDT [facility] [id number] Patient asked to attend Patient Asked to Attend Proble m 10/07/2019 12:00:00 AM EDT ROBBIN ([facility]) [id number] Impaired fasting glycemia Impaired Fasting Glycemia Pr oblem 10/07/2019 12:00:00 AM EDT ROBBIN ([facility]) 348.2 Benign intracranial hypertension Benign intracranial h ypertension 07/09/2019 02:26:44 PM EDT [facility] 68243000 Benign intracranial hypertension Benign Intracra nial Hypertension Problem 07/09/2019 12:00:00 AM EDT ROBBIN ([facility]) 465.9 upper respiratory infection upper respiratory infectio n 06/10/2019 12:30:59 PM EST [facility] V85.42 BMI 45.0-49.9 BMI 45.0-49.9 06/07/2019 10:09:59 AM [facility] [id number] Body mass index 30+ - obesity Body Mass Index 30+ - Ob esity Problem 06/07/2019 12:00:00 AM EST ROBBIN ([facility]) 74849928 Headache Headache Problem 04/29/2019 12:00:00 AM TARAH RYAN ([facility]) [id number] Anxiety disorder Anxiety disorder Problem 04/29/2019 12 :00:00 AM EST MEDOCTAVIA ([facility]) [id number] Clinical finding Clinical Finding Problem 018 12:00:00 AM EST - 02/15/2020 12:00:00 AM EST ROBBIN ([facility]) Z5189 Encounter for other specified aftercare Encounter for other specified aftercare Diagnosis 11/11/2019 11:57:00 AM EDT [facility] Surgeries/Procedures Procedure Description Date Indications Data Source(s) Exam Comprehensive, New PT 04/29/2019 12:00:00 AM EST MEDOCTAVIA ([facility]) Refraction 04/29/2019 12:00:00 AM EST M RACHEL ([facility]) Results ID Date Data Source [id number] 01/15/2020 12:00:00 AM EDT [facility] Name Value Range Interpretation Code Description Data Sondra rce(s) Supporting Document(s) SARS coronavirus 2 RNA [Presence] in Res piratory specimen by OSWALD with probe detection [facility] This lab was ordered by Rashel Barber and reported by [employer]. ID Date Data Source [id number] 11/19/2019 06:00:00 PM EDT [facility]) Name Value Range Interpretation Code Description Data Sondra rce(s) Supporting Document(s) HCG, serum qualitative negative negative normal HCG, Serum Qu alitative ROBBIN ([facility]) ID Date Data Source [id number] 11/19/2019 06:00:00 PM EDT [facility]) Name Value Range Interpretation Code Description Data Sondra rce(s) Supporting Document(s) lipase 57 U/L 73-393 Below low normal Lipase [facility]) ID Date Data Source [id number] 11/19/2019 06:00:00 PM EDT [facility]) Name Value Range Interpretation Code Description Data Sondra rce(s) Supporting Document(s) creatinine for GFR 0.78 mg/dL 0.55-1.30 normal Creatinine for GF R ROBBIN ([facility]) blood urea nitrogen 6 mg/dL 7-18 Below low normal Blood Urea Nitrogen RICHARDSON ([facility]) glucose, fasting 78 mg/dL 70-100 normal Glucose, Fasting AT [facility] ([facility]) sodium level 140 mEq/L 136-145 normal Sodium Level ROBBIN ([facility]) glomerular filtration rate > 60.0 >60 normal Glomerula r Filtration Rate ROBBIN ([facility]) potassium serum 4.1 mEq/L 3.5-5.1 normal Potassium Serum ATH NA ([facility]) chloride level 109 mEq/L 98-107 Above high normal Chloride Level RICHARDSON ([facility]) calcium level 9.3 mg/dL 8.5-10.1 normal Calcium Level RICHARDSON ( [facility]) anion gap 5 mEq/L 8-16 Below low normal Anion Gap RICHARDSON ( [facility]) carbon dioxide level 26 mEq/L 21-32 normal Carbon Dioxide Level R[place]DSON ([facility]) ID Date Data Source [id number] 11/19/2019 06:00:00 PM EDT [facility]) Name Value Range Interpretation Code Description Data Sondra rce(s) Supporting Document(s) AST/SGOT 8 U/L 7-37 normal AST/SGOT RICHARDSON ([facility]) ALT/SGPT 21 U/L 12-78 normal ALT/SGPT RICHARDSON ([facility]) bilirubin,total 0.5 mg/dL 0.2-1.0 normal Bilirubin,[facility] alkaline phosphatase 66 U/L 45-117 normal Alkaline Phosph atase [facility]) bilirubin,direct 0.1 mg/dL 0.0-0.2 normal Bilirubin,direct AT [facility]) albumin 3.8 gm/dL 3.2-5.2 normal Albumin RICHARDSON ([facility]) total protein 7.2 gm/dL 6.4-8.2 normal Total Protein ROBBIN ( [facility]) albumin/globulin ratio 1.2-2.2 Below low normal Albumin /globulin Ratio RICHARDSON ([facility]) ID Date Data Source [id number] 11/19/2019 06:00:00 PM EDT [facility] Name Value Range Interpretation Code Description Data Sondra rce(s) Supporting Document(s) HCT 44.0 % 36.0-47.0 N [facility] HGB 14.1 g/dL 12.0-15.5 N [facility] MCH 32.0 G/DL pg 32.0-36.5 N [facility] MCHC 29.5 PG % 27.0-33.0 [facility] PLATELETS 233 10 10*3/mm3 150-450 N [facility] RBC 4.78 10 10*6/mm3 4.00-5.40 [facility] RDW 12.2 % 11.5-14.5 [facility] WBC TOTAL 8.3 4.0-10.0 N [facility] ID Date Data Source [id number] 11/19/2019 06:00:00 PM EDT [facility] Name Value Range Interpretation Code Description Data Sondra rce(s) Supporting Document(s) APPEARANCE U HAZY CLEAR N [facility] SPEC GR URIN 1.026 1.002-1.035 N [facility] UA COLOR YELLOW YELLOW N [facility] ID Date Data Source [id number] 11/10/2019 10:20:00 AM EDT [facility] Name Value Range Interpretation Code Description Data Sondra rce(s) Supporting Document(s) BG FASTING SEE SEPARATE REPORT mg/dL N [facility] ID Date Data Source [id number] 11/10/2019 10:20:00 AM EDT [facility] Name Value Range Interpretation Code Description Data Sondra rce(s) Supporting Document(s) BASIC METABOLIC PANEL [facility] BASIC METABOLIC PANEL Sodium [Moles/volume] in Serum or Plasma 138 mEq/L 136 - 145 [facility] Potassium [Moles/volume] in Serum or Plasma 4.8 mEq/L 3.5 - 5.1 [facility] Chloride [Moles/volume] in Serum or Plasma 104 mEq/L 98 - 107 [facility] Carbon dioxide, total [Moles/volume] in Serum or Plasma 27.2 mEq /L 21.0 - 32.0 [facility] Glucose [Mass/volume] in Serum or Plasma 86 mg/dL 70 - 100 [facility] Urea nitrogen [Mass/volume] in Serum or Plasma 9 mg/dL 7 - 18 [facility] CREATININE SERUM 0.89 mg/dL 0.55 - 1.02 [facility] AGE 29 yrs [facility] l eGFR NON-AFR AMR >60 [facility] eGFR AFR AMR >60 [facility] ital BUN/CREAT 10 6 - 25 [facility] l Calcium [Mass/volume] in Serum or Plasma 9.2 mg/dL 8.8 - 10.2 [facility] ANION GAP 7 7 - 15 [facility] l Estimated GFR reference r [place]: > 60 mL/min/1.73m >18 years: Calculated using IDMS traceable MDRD Study Equation <18 years: Calculated using IDMS traceable Bedside Pina Equation ID Date Data Source [id number] 10/28/2019 02:20:41 PM EDT [facility] Name Value Range Interpretation Code Description Data Sondra rce(s) Supporting Document(s) APPEARANCE U cloudy [facility] BILIRUBIN UR negative [facility] DIP negative [facility] GLUCOSE, URN negative [facility]ES [facility] NITR[facility]RN negative [facility] PH URINE 6.0 [facility] PROTEIN, URN negative [facility] [employer] SPEC GR URIN 1.020 [facility] UA COLOR light yellow [facility] UROBILINOGEN 3.5 [facility] WBC DIPSTK U negative [facility] ID Date Data Source [id number] 10/28/2019 01:46:52 PM EDT [facility] Measurements & CalculationsHeight: 67 inches (5 ft. [...] 28, 2019 1:47 PMVital Signs performed by: Mcak MCCRARY, October 28, 2019 2:06 PMInitial Intake [...] neuroHave you seen a dentist? Yes - mccueIntake performed by: Jeniffer Whittington LPN, October 28, [...] during this visit, including review of any qsof-jfx-rpzobmh medications, herbal therapies, and/or supplements.Allergy ReviewAllergy List [...] is? GoodAssessment & Plan Problems:Added: Generalized edema (FUO05-K58.1) Assessment: Instructions: Suspect heat and humidity related. Will recheck renal function. If stable, will add low dose hydrochlorothiazide as needed and again check renal function after taking for 2-4 weeks. Both lab slips given to patient.Increased frequency of urination (ICD-788.41) (ZAZ50-Q29.0) Assessment: Instructions: Normal urinalysis in the office today, will not send for culture.Removed:Otalgia of left ear (EIZ30-D81.02)Patient Instructions/Care Plan: Generalized edema: Suspect heat and [...] GEODON (Moderate)BACTRIM (Moderate)* TOPAMAX (Moderate)Orders:Metabolic Panel, Basic [CPT-32227] Metabolic Panel, Basic [CPT- 07491] Adult - Ofc Vst, EST, Level III [CPT-29418] Urinalysis-automated [CPT-69141] Follow-Up Return to clinic: as needed Clinical Visit Summary Completed Labs In-House Urine TestsDate/Time Collected: October 28, 2019 2:21 PMDate/Time Received: October 28, 2019 2:21 PMTest Result Reference Range Normal ValueRoutine Urinalysis Color: light yellow Yellow Appearance: cloudy Clear Leukocytes: negative Negative Nitrite: negative Negative Urobilinogen: 3.5 Negative Protein: negative Negative pH: 6.0 5.0-6.5 Blood: negative Negative Specific Arthur: 1.020 1.020>=1.030 Ketone: negative Negative Bilirubin: negative Negative Glucose: negative NegativeCorubens Whittington LPN, October 28, 2019 2:21 PMAssessment & Plan Name Value Range Interpretation Code Description Data Sondra rce(s) Supporting Document(s) ID Date Data Source [id number] 10/07/2019 01:46:45 PM EDT [facility] Measurements & CalculationsHeight: 67 inches (5 ft. [...] retinal specialist (Sunil who advised return to [place]) a few times, since last office visit here. Has an appt next week for neuro follow-up and an eye appt with Dr. Guevara in October. She is considering switching to [facility] because she feels she is being [...] during this visit, including review of any fabs-guv-duckrxp medications, herbal therapies, and/or supplements.Allergy ReviewAllergy List [...] explanation of examination or test findings (ICD-V65.8) (NNW73-L61.2) Assessment: Instructions: Labs reviewed in detail today. Consider adding a low dose of Vitamin D3 1000 units daily over the counter for preventative.Impaired fasting glycemia (ICD-790.21) (QIW23-W61.01) Assessment: Instructions: Recommend low carbohydrate diet: reduce pasta, bread, potatoes, rice. If you do eat carbohydrates, better choices are whole wheat and brown rice products. Recommend portion control and avoidance of soda and sugary foods. Increase physical activity and monitor weight. Repeat with additional labs in 3 months.Otalgia of left ear (FYH05-C15.02) Assessment: Instructions: No ear infection today. Likely allergies, start daily allergy medication over the counter.Changed:From: Dx of Obesity (ICD-278.00) (REF89-Q67.09) To: Morbid obesity (ICD-278.01) (UAU69-U16.01)Assessed:Benign intracranial hypertension (ICD-348.2) (QWE87-Z41.2) Assessment: Instructions: Continue per your specialists. Continue [...] the reach of childrenOther optic neuritis (ICD-377.39) (MZE54-X07.8) Assessment: Instructions: As above.BMI 45.0-49.9 (ICD-V85.42) (CJL75-F87.42) Assessment: Instructions: Recommend healthy lifestyle modification. Encourage portion control, healthy food choices, and increasing routine physical activity. Recommendation is for 150 minutes throughout the week of cardiovascular exercise.Morbid obesity (ICD-278.01) (QXL51-J16.01) Assessment: Instructions: As above.Removed:upper respiratory infection (ICD-465.9) (UTH69-I28.9)Patient Instructions/Care Plan: Benign intracranial hypertension: Continue per [...] GEODON (Moderate)BACTRIM (Moderate)* TOPAMAX (Moderate)Orders:COMP METABOLIC PANEL [CPT-81111] HgBA1c [CPT-24155] Adult - Ofc Vst, EST, Level III [CPT-55216] Follow-Up Return to clinic: in 90 days for follow upAdditional Follow-Up: elevated sugar follow-upClinical Visit Summary Completed Name Value Range Interpretation Code Description Data Sondra rce(s) Supporting Document(s) ID Date Data Source [id number] 09/30/2019 08:52:00 AM EDT [facility] Name Value Range Interpretation Code Description Data Sondra rce(s) Supporting Document(s) HCT 42.7 % 36.0-47.0 N [facility] HGB 13.9 g/dL 12.0-15.5 N [facility] MCH 32.6 G/DL pg 32.0-36.5 N [facility] MCHC 29.8 PG % 27.0-33.0 N [facility] PLATELETS 259 10 10*3/mm3 150-450 N [facility] RBC 4.66 10 10*6/mm3 4.00-5.40 N [facility] RDW 12.2 % 11.5-14.5 N [facility] WBC TOTAL 6.5 4.0-10.0 N [facility] ID Date Data Source [id number] 09/30/2019 08:52:00 AM EDT [facility] Name Value Range Interpretation Code Description Data Sondra rce(s) Supporting Document(s) VIT D25 TOT 25.1 ng/mL 30.0-100.0 L [facility] BG FASTING 103 mg/dL 70-100 H [facility] y Health T4, FREE 1.06 ng/dL 0.76-1.46 N [facility] Health TSH 2.070 microintl units/mL 0.358-3.740 N [facility] ID Date Data Source [id number] 09/30/2019 08:51:23 AM EDT [facility] Labs In-House Blood TestsDate/Time Colle cted: September 30, 2019 8:51 AMTest Result Reference Range Normal ValueComments: blood draw done in offcie done in the right ac tolerated well Walter Spain MA, September 30, 2019 8:51 AMAssessment & Plan Orders:[id number] Vst-Est Level I [CPT-03036] 97413 - Venipuncture [CPT-75714] Name Value Range Interpretation Code Description Data Sondra rce(s) Supporting Document(s) ID Date Data Source [id number] 07/09/2019 01:39:42 PM EDT [facility] Measurements & CalculationsHeight: 67 inches (5 ft. [...] (HPI)29 yo female her for letter for [facility] stating that she is unable to work due to her optic neuritis. Pt state that Dr. Walsh was going to take her out of work but then her job ([employer]) closed so she didn't need the letter. Now [facility] is asking for a letter stating that [...] during this visit, including review of any vepr-atm-fvahcbf medications, herbal therapies, and/or supplements.Allergy ReviewAllergy List [...] & Plan Problems:Added: Benign intracranial hypertension (ICD-348.2) (FKJ54-C96.2) Assessment: Instructions: Out of work at this [...] (Moderate)Orders:Adult - Ofc Vst, EST, Level II [CPT-21903] Follow-Up Return to clinic: as needed Clinical Visit Summary Completed Name Value Range Interpretation Code Description Data Sondra rce(s) Supporting Document(s) ID Date Data Source [id number] 06/07/2019 09:20:03 AM EST [facility] Measurements & CalculationsHeight: 67 inches (5 ft. [...] (ER) or urgent care clinic? Yes - [facility] ER fluEmergency room (ER) or urgent [...] for a non-medical reason? 0Performed by: Lynn Lnidsay LPN, June 07, 2019 9:26 AMPatient History [...] months.Pt reports flu illness, was seen at [facility] then [facility] ER for ongoing symptoms. Reports occasional [...] during this visit, including review of any dnrb-gsk-ikkdlza medications, herbal therapies, and/or supplements.Allergy ReviewAllergy List [...] Dx of upper respiratory infection (ICD- 465.9) (EMC71-H22.9) To: upper respiratory infection (ICD-465.9) (ICD10- J06.9)Assessed:Obesity (ICD-278.00) (NUG09-A56.09) Assessment: Instructions: As above.Other optic neuritis (ICD-377.39) (WUI60-U24.8) Assessment: Instructions: Continue per specialists. Record releases [...] out of the reach of childrenInsomnia (ICD-780.52) (NTC93-N72.00) Assessment: Instructions: Ambien prescribed for as needed. As above regarding controlled substance.upper respiratory infection (ICD-465.9) (DLX19-L84.9) Assessment: Instructions: Improving. Monitor for worsening symptoms.Removed:Other optic neuritis (ICD-377.39) (TCH05-H84.8), Dermatitis, unspecified (OVM70-B07.9), Encounter for screening for other metabolic disorders (XBI29-G64.228), bronchitis (ICD-466.0) (EMH88-D44.9), Viral disease (ICD-079.99) (MOT33-D19.9), BMI 35.0-35.9 (ICD-V85.35) (BHX18-K20.35), Post traumatic stress disorder (ICD- 309.81) (NXK46-H34.10), Strain of muscle and tendon of head, sequela & Strain of muscle, fascia and tendon at neck level, sequela (ICD-847.0) (YCR45-H04.11xS), upper respiratory infection (ICD-465.9) (VCC24-I78.9), Migraine headache (ICD- 346.90) (UHK74-H20.909), ABDOMINAL PAIN (ICD-789.00) (RJK24-I96.9), HEMORRHOIDS (ICD-455.6) (EXF73-H52.9), ANXIETY DISORDER (ICD-300.00) (SAS23-Y46.9), OVARIAN CYST, RIGHT (ICD-620.2) (GOP99-B87.20), RENAL CALCULUS (ICD-592.0) (ICD10- N20.0), MOOD DISORDER NOS (ICD-296.90) (DGL12-X05), P T S D (ICD-309.81), MOOD DISORDER NOS (ICD-296.90) (WJW02-O35), P T S D (ICD-309.81), MOOD DISORDER NOS (ICD-296.90) (ZGA15-V97), P T S D (ICD-309.81), O C D (ICD-300.3) (IIV82-W47), MOOD DISORDER NOS (ICD-296.90) (TCF20-W81), MOOD DISORDER NOS (ICD-296.90) (CXI03-G09), MOOD DISORDER NOS (ICD-296.90) (XOE60-C78), O C D (ICD-300.3) (GLR11-K01), O C D (ICD-300.3) (LJU86-F97), MOOD DISORDER NOS (ICD-296.90) (ICD 10-F39), MOOD DISORDER NOS (ICD-296.90) (RHS05-H50), O C D (ICD-300.3) (ICD10- F42), MOOD DISORDER NOS (ICD-296.90) (OUI96-E82), MOOD DISORDER NOS (ICD-296.90) (SCT37-X94), O C D (ICD-300.3) (RJN69-X47), LONG-TERM (CURRENT) USE OF OTHER MEDICATIONS (ICD-V58.69), SCREENING FOR LIPOID DISORDERS (ICD-V77.91) (ICD10- Z13.220), EPIDERMOID CYST OCCIPUT (ICD-706.2) (MHV51-A74.3), Metabolic syndrome X (ICD-277.7) (XOP53-K69.81)Patient Instructions/Care Plan: BMI 45.0-49.9: Fasting labs have [...] GEODON (Moderate)BACTRIM (Moderate)* TOPAMAX (Moderate)Orders:COMP METABOLIC PANEL [CPT-18021] CBC W/DIFF [CPT-86412] LIPID PANEL [CPT-18410] TSH [CPT-38472] T-4 free [CPT-43186] Vitamin D 250H Unspecified [CPT-03618] Adult - Ofc Vst, EST, Level III [CPT-42629] Follow-Up Return to clinic: in 3 months for preventive care visitAdditional Follow-Up: annual PEClinical Visit Summary CompletedMedications:ZOLPIDEM TARTRATE 5 MG ORAL TABLET (ZOLPIDEM TARTRATE) 1 po 1 hour priior to sleeping prn insmonia; MDD 1 #30[Tablet] x 0 Route:ORAL Entered and Authorized by: Makc MCCRARY Method used: Electronically to [facility] (xyfwcn) [id number] [place] [address] Note to Pharmacy: Route: ORAL; RxID: [id number] 5-325 MG ORAL TABLET (HYDROCODONE- ACETAMINOPHEN) 1 po 1 4-6 hours prn severe pain; MDD 3 #21[Tablet] x 0 Route:ORAL Entered and Authorized by: Mack MCCRARY Method used: Electronically to [facility] (retail) [address] [place] [address] Fax: Note to Pharmacy: Route: ORAL; RxID: [id number] SUMATRIPTAN SUCCINATE 100 MG ORAL TABLET (SUMATRIPTAN SUCCINATE) 1 po with onset of migraine- may repeat in 1 hour iif no relief; Max of 2 per day or 4 per week #16[Tablet] x 5 Route:ORAL Entered by: Lynn Lindsay LPN Authorized by: Dewey Walsh MD Method used: Electronically to [facility] (retail) [address] [place] [address] RxID: [id number] LEXAPRO 20 MG ORAL TABLET (ESCITALOPRAM OXALATE) One a day #30[Tablet] x 1 Route:ORAL Entered by: Lynn Lindsay LPN Authorized by: Nicki Ellis MD Method used: Electronically to [facility] (retail) [address] [place] [address] RxID: [id number] ESGIC 50-325-40 MG ORAL TABLET (TGATTMQRQU-QERF-SWFDBSUP) 1 iwith onset of migraine- repeat in 1 hour if no relief #60[Tablet] x 2 Route:ORAL Entered by: Lynn Lindsay LPN Authorized by: Dewey Walsh MD Method used: Electronically to [facility] (retail) [place] [address] RxID: [id number] WELLBUTRIN SR 100 MG ORAL TABLET EXTENDED RELEASE 12 HOUR (BUPROPION HCL) One a day #30[Tablet] x 2 Route:ORAL Entered by: Lynn Lindsay LPN Authorized by: Nicki Ellis MD Method used: Electronically to [facility] (retail) [address] [place] [address] Fax: RxID: [id number] COLACE 100 MG ORAL CAPSULE (DOCUSATE SODIUM) 1 po tid prn constipation #90[Capsule] x 3 Route:ORAL Entered by: Lynn Lindsay LPN Authorized by: Dewey Walsh MD Method used: Electronically to [facility] (retail) [address] [place] [address] Fax: RxID: [id number] ROBAXIN 500 MG ORAL TABLET (METHOCARBAMOL) 1 po tid prn spasms #90[Tablet] x 3 Route:ORAL Entered by: Lynn Lindsay LPN Authorized by: Dewey Walsh MD Method used: Electronically to [facility] (retail) [address] [place] [address] Fax: RxID: [id number]][Immunization Management] Name Value Range Interpretation Code Description Data Sondra rce(s) Supporting Document(s) Procedure Vital Signs ID Date Data Source UNK Name Value Range Interpretation Code Description Data Source(s) Body weight 4722 [oz_av] 4722 [oz_av] [facility] ([facility]) Systolic blood pressure 121 mm[Hg] 121 mm[Hg] A [facility] ([facility]) Body mass index (BMI) [Ratio] 46.2 kg/m2 46.2 k g/m2 [facility] ([facility]) Body height 67 [in_i] 67 [in_i] [facility] ([facility]) Diastolic blood pressure 81 mm[Hg] 81 mm[Hg] [facility] ([facility]) Body weight 5126.08 [oz_av] 5126.08 [oz_av] ATH JLUIS ([facility]) Systolic blood pressure 117 mm[Hg] 117 mm[Hg] A [facility] ([facility]) Body height 67 [in_i] 67 [in_i] [facility] ([facility]) Diastolic blood pressure 82 mm[Hg] 82 mm[Hg] [facility] ([facility]) Body weight 5072 [oz_av] 5072 [oz_av] [facility] ([facility]) Systolic blood pressure 119 mm[Hg] 119 mm[Hg] A [facility] ([facility]) Body height 67 [in_i] 67 [in_i] [facility] ([facility]) Diastolic blood pressure 82 mm[Hg] 82 mm[Hg] [facility] ([facility]) Body weight 5112 [oz_av] 5112 [oz_av] [facility] ([facility]) Systolic blood pressure 113 mm[Hg] 113 mm[Hg] A [facility] ([facility]) Body height 67 [in_i] 67 [in_i] [facility] ([facility]) Diastolic blood pressure 78 mm[Hg] 78 mm[Hg] [facility] ([facility]) Body weight 5088 [oz_av] 5088 [oz_av] [facility] ([facility]) Systolic blood pressure 130 mm[Hg] 130 mm[Hg] A [facility] ([facility]) Body height 67 [in_i] 67 [in_i] [facility] ([facility]) Diastolic blood pressure 83 mm[Hg] 83 mm[Hg] [facility] ([facility]) Central corneal thickness Right cornea Pachymetry 502 um 502 um [facility] ([facility] ) Central corneal thickness Left cornea Pachymetry 503 um 503 um [facility] ([facility] ) Intraocular pressure Left eye 12 mm[Hg] 12 mm[ Hg] [facility] ([facility] ) Intraocular pressure Right eye 14 mm[Hg] 14 mm [Hg] [facility] ([facility]) Ap 09:31 Am Patient Treatment Plan of Care Planned Activity Planned Date Details Description Data Source (s) 24 HR venlafaxine 37.5 MG Extended Release Oral Capsule [facility] ([facility]) topiramate 25 MG Oral Tablet [facility] ([facility]) Pseudoephedrine Hydrochloride 30 MG Oral Tablet [Sudogest] [facility] ([facility]) Prednisone 20 MG Oral Tablet [facility] ([facility]) Acetaminophen 325 MG / Oxycodone Hydrochloride 5 MG Oral Tablet [facility] ([facility]) Oseltamivir 75 MG Oral Capsule [facility] ([facility]) fluticasone propionate 50 mcg/actuation nasal spray,suspension [facility] ([facility]) Diclofenac Sodium 50 MG Delayed Release Oral Tablet [facility] ([facility]) benzonatate 100 MG Oral Capsule [facility] ([facility]) Azithromycin 250 MG Oral Tablet [facility] ([facility]) Amoxicillin 875 MG / Clavulanate 125 MG Oral Tablet [facility] ([facility])
--- NOTE | 2020-06-05 20:05 | ED PDOC ---
Post-Departure Follow-Up tyler reyes faxed formal report of t spine ct for fu Mariely Grewal MD Jun 05, 2020 20:05
== END 2020-06-03 13:18 | disposition home or self-care (01) ==
LOC: M ED 11:24
DX: M51.24 Other intervertebral disc displacement, thoracic region (principal); W50.0XXA Accidental hit or strike by another person, initial encounter; Y92.019 Unspecified place in single-family (private) house as the place of occurrence of the external cause; Y93.9 Activity, unspecified; Y99.9 Unspecified external cause status; F43.10 Post-traumatic stress disorder, unspecified; F33.9 Major depressive disorder, recurrent, unspecified; F41.9 Anxiety disorder, unspecified; G43.909 Migraine, unspecified, not intractable, without status migrainosus; Z88.8 Allergy status to other drugs, medicaments and biological substances; Z88.2 Allergy status to sulfonamides; Z79.899 Other long term (current) drug therapy

== ENCOUNTER → 2020-06-09 | Outpatient (REF) | payer OTHER ==
[2020-06-09 18:04] LABS: HEMOGLOBIN A1c 4.8 %
== END ==
LOC: M LAB REF 16:48
PROVIDERS: ATTEND Pediatrics
DX: R73.01 Impaired fasting glucose (principal)

== ENCOUNTER 2020-11-04 19:53 | Emergency (ER) | payer OTHER ==
[~2020-11-04] VITALS: Ht 167.6 cm; Wt 137.1 kg
[2020-11-04 19:53] VITALS: BP 132/86
== END 2020-11-04 22:00 | disposition left against medical advice (07) ==
LOC: M ED 19:53
DX: Z53.21 Procedure and treatment not carried out due to patient leaving prior to being seen by health care provider (principal)

== ENCOUNTER 2020-11-30 23:31 | Emergency (ER) | payer OTHER ==
[~2020-11-30] VITALS: Ht 167.6 cm; Wt 139.1 kg
[2020-11-30 23:32] VITALS: BP 150/83
[2020-11-30] MEDS ORDERED: CLIN300C6 (23:40)
[2020-11-30] MEDS ORDERED: TRIA0.022 (23:40)
[2020-11-30] MEDS ORDERED: LORA-674 (23:40)
== END 2020-12-01 00:20 | disposition left against medical advice (07) ==
LOC: M ED 23:31
DX: Z53.21 Procedure and treatment not carried out due to patient leaving prior to being seen by health care provider (principal)

== ENCOUNTER 2021-08-31 00:30 | Emergency (ER) | payer OTHER ==
[~2021-08-31] VITALS: Ht 167.6 cm; Wt 131.8 kg
[~2021-08-31 00:30] MED LIST changes: +CLIN-250; +LORA-674; +TRIA0.022
[2021-08-31] MEDS ORDERED: NS 1,000 ML IV ONE (00:50)
[2021-08-31] MEDS ORDERED: ONDANSETRON 4MG/2ML VIAL IV ONE (00:55)
[2021-08-31] MEDS: MORPHINE 2 MG/ML 1ML VIAL IV PRN ×2 (01:10→01:46)
[2021-08-31 01:15] LABS: BASO % 0.2 % (0.0-1.0); EOS # 0.2 10^3/uL (0.0-0.5); HEMATOCRIT 45.4 % (36.0-47.0); HEMOGLOBIN 14.8 g/dl (12.0-15.5); LYMPH # 2.1 10^3/uL (1.5-5.0); LYMPH % 20.9 % (24.0-44.0); MEAN CORPUSCULAR HEMOGLOBIN 29.8 pg (27.0-33.0); MEAN CORPUSCULAR HGB CONC 32.6 g/dl (32.0-36.5); MEAN CORPUSCULAR VOLUME 91.3 fl (80.0-96.0); MONO # 0.5 10^3/uL (0.0-0.8); MONO % 4.9 % (2.0-8.0); NEUTROPHILS # 7.1 10^3/uL (1.5-8.5); NEUTROPHILS % 71.9 % (36.0-66.0); PLATELET COUNT, AUTOMATED 302 10^3/uL (150-450); RED BLOOD COUNT 4.97 10^6/uL (4.00-5.40); WHITE BLOOD COUNT 9.9 10^3/uL (4.0-10.0)
[2021-08-31 01:33] LABS: INR 0.96; PROTHROMBIN TIME 13.2 SECONDS (12.7-14.5)
[2021-08-31 01:34] LABS: PARTIAL THROMBOPLASTIN TIME 35.4 SECONDS (25.9-37.0)
[2021-08-31 01:40] LABS: ALBUMIN 3.6 GM/DL (3.2-5.2); ALT/SGPT 21 U/L (12-78); BILIRUBIN,DIRECT < 0.1 MG/DL (0.0-0.2); BILIRUBIN,TOTAL 0.5 MG/DL (0.2-1.0); BLOOD UREA NITROGEN 7 MG/DL (7-18); CALCIUM LEVEL 9.1 MG/DL (8.5-10.1); CARBON DIOXIDE LEVEL 24 MEQ/L (21-32); CHLORIDE LEVEL 110 MEQ/L (98-107); CREATININE FOR GFR 0.77 MG/DL (0.55-1.30); GLOMERULAR FILTRATION RATE > 60.0 (>60); GLUCOSE, FASTING 116 MG/DL (70-100); LIPASE 91 U/L (73-393); POTASSIUM SERUM 4.3 MEQ/L (3.5-5.1); SODIUM LEVEL 140 MEQ/L (136-145); TOTAL PROTEIN 6.8 GM/DL (6.4-8.2)
[2021-08-31 02:32] LABS: RSV AMPLIFICATION NEGATIVE (NEGATIVE)
[2021-08-31 05:01] VITALS: BP 123/85
[2021-08-31] MEDS ORDERED: KETOROLAC 30 MG/ML 1ML VIAL IV ONE (05:20)
[2021-08-31] MEDS ORDERED: KETO10TAB PO (06:03)
[2021-08-31] MEDS ORDERED: OXYCODONE/APAP 5MG/325MG(BULK FOR ED) 1 TABLET PO ONE (06:05)
== END 2021-08-31 06:22 | disposition home or self-care (01) ==
LOC: M ED 00:30 → EDBD 00:30 → M ED 06:22
DX: R10.9 Unspecified abdominal pain (principal); J45.909 Unspecified asthma, uncomplicated; Z87.42 Personal history of other diseases of the female genital tract; Z88.2 Allergy status to sulfonamides; Z88.8 Allergy status to other drugs, medicaments and biological substances; Z79.899 Other long term (current) drug therapy
CPT/HCPCS: 74177; 80047; 80048; 80076; 83605; 83690; 84702; 85025; 85610; 85730; 86850; 86900; 86901; 87631; 93041; 96361; 96374; 96375; 99285; J1885; J2270; J2405

== ENCOUNTER 2021-09-16 14:22 | Emergency (ER) | payer OTHER ==
[~2021-09-16] VITALS: Ht 167.6 cm; Wt 120.5 kg
[~2021-09-16 14:22] MED LIST changes: +ALBU2.5V10; -ALBU83IN; +KETO10TAB PO
[2021-09-16] MEDS ORDERED: KETOROLAC 30 MG/ML 1ML VIAL IM ONE (15:50)
[2021-09-16] MEDS ORDERED: FLUORESCEIN OPHTH 1 MG STRIP OD ONE (17:05)
[2021-09-16] MEDS ORDERED: ACETAMINOPHEN 500 MG TAB PO ONE (17:05)
[2021-09-16] MEDS ORDERED: PROPARACAINE 0.5% OPHTH SOL 15ML OD ONE (17:05)
[2021-09-16 19:21] VITALS: BP 136/80
== END 2021-09-16 19:25 | disposition short-term general hospital (02) ==
LOC: M ED 14:22
DX: S09.90XA Unspecified injury of head, initial encounter (principal); H53.139 Sudden visual loss, unspecified eye; M54.2 Cervicalgia; Y04.8XXA Assault by other bodily force, initial encounter; Z88.1 Allergy status to other antibiotic agents; Z88.2 Allergy status to sulfonamides; Z88.8 Allergy status to other drugs, medicaments and biological substances
CPT/HCPCS: 70450; 70486; 72125; 87426; 96372; 99284; J1885

== ENCOUNTER → 2022-02-06 | Outpatient (REF) | payer OTHER ==
[~2022-02-06] MED LIST changes: +ALBU6.7H6 INH; -PROV108A INH
[2022-02-06 21:40] LABS: APPEARANCE, URINE MANUAL CLEAR (CLEAR); COLOR, URINE MANUAL YELLOW (YELLOW)
[2022-02-06 21:43] LABS: BILIRUBIN, URINE MANUAL NEGATIVE (NEGATIVE); BLOOD URINE MANUAL NEGATIVE (NEGATIVE); GLUCOSE, URINE (UA) MANUAL NEGATIVE (NEGATIVE); KETONE, URINE MANUAL NEGATIVE (NEGATIVE); LEUKOCYTE ESTERASE, URINE MAN TRACE (NEGATIVE); NITRITE, URINE MANUAL NEGATIVE (NEGATIVE); PROTEIN, URINE MANUAL NEGATIVE (NEGATIVE); URINE PREG TEST POSITIVE (NEGATIVE); UROBILINOGEN, URINE MANUAL NORMAL (NORMAL)
[2022-02-06 21:58] LABS: RBC, URINE 0-1 /hpf (0-3); SQUAMOUS EPITHELIAL CELL URINE MOD AMOUNT /hpf (SMALL AMT)
[2022-02-06 21:59] LABS: BACTERIA, URINE SMALL AMOUNT; HYALINE CAST, URINE NONE SEEN /lpf (0-1); MUCUS, URINE MOD AMOUNT (NEGATIVE)
== END ==
LOC: M LAB REF 21:16
PROVIDERS: ATTEND Physician Assistant
DX: O23.40 Unspecified infection of urinary tract in pregnancy, unspecified trimester (principal); Z3A.00 Weeks of gestation of pregnancy not specified

== ENCOUNTER 2022-02-09 23:35 | Emergency (ER) | payer OTHER ==
[~2022-02-09] VITALS: Ht 170.2 cm; Wt 136.3 kg
[2022-02-09 23:38] VITALS: BP 136/85
[2022-02-10 02:24] LABS: BASO % 0.2 % (0.0-1.0); EOS # 0.3 10^3/uL (0.0-0.5); EOS % 3.1 % (0.0-3.0); HEMOGLOBIN 13.8 g/dl (12.0-15.5); LYMPH # 3.2 10^3/uL (1.5-5.0); LYMPH % 34.7 % (24.0-44.0); MEAN CORPUSCULAR HEMOGLOBIN 30.1 pg (27.0-33.0); MEAN CORPUSCULAR HGB CONC 32.1 g/dl (32.0-36.5); MEAN CORPUSCULAR VOLUME 93.7 fl (80.0-96.0); MONO # 0.5 10^3/uL (0.0-0.8); MONO % 4.9 % (2.0-8.0); NEUTROPHILS # 5.3 10^3/uL (1.5-8.5); NEUTROPHILS % 56.7 % (36.0-66.0); PLATELET COUNT, AUTOMATED 260 10^3/uL (150-450); RED BLOOD COUNT 4.59 10^6/uL (4.00-5.40); WHITE BLOOD COUNT 9.3 10^3/uL (4.0-10.0)
[2022-02-10 03:04] LABS: BLOOD UREA NITROGEN 9 MG/DL (7-18); CALCIUM LEVEL 9.1 MG/DL (8.5-10.1); CARBON DIOXIDE LEVEL 25 MEQ/L (21-32); CHLORIDE LEVEL 109 MEQ/L (98-107); CREATININE FOR GFR 0.79 MG/DL (0.55-1.30); GLOMERULAR FILTRATION RATE > 60.0 (>60); GLUCOSE, FASTING 97 MG/DL (70-100); HCG, SERUM QUANTITATIVE 533 MIU/ML; POTASSIUM SERUM 4.1 MEQ/L (3.5-5.1); SODIUM LEVEL 138 MEQ/L (136-145)
== END 2022-02-10 02:30 | disposition left against medical advice (07) ==
LOC: M ED 23:35
DX: Z53.21 Procedure and treatment not carried out due to patient leaving prior to being seen by health care provider (principal)

== ENCOUNTER → 2022-02-12 | Outpatient (CLI) | payer OTHER | LOC: M LAB 12:27 | PROVIDERS: ATTEND Physician Assistant | DX: Z32.01 Encounter for pregnancy test, result positive (principal) ==

== ENCOUNTER → 2022-03-06 | Outpatient (CLI) | payer OTHER, MEDICARE | LOC: M PLALAB 14:57 | PROVIDERS: ATTEND Advanced Practice Midwife | DX: O02.0 Blighted ovum and nonhydatidiform mole (principal) ==

== ENCOUNTER 2022-04-05 19:20 | Emergency (ER) | payer OTHER, MEDICARE ==
[~2022-04-05] VITALS: Ht 167.6 cm; Wt 122.7 kg
[2022-04-05] MEDS ORDERED: NS 1,000 ML IV ONE (19:30)
[2022-04-05] MEDS ORDERED: MORPHINE 4 MG/ML 1ML VIAL IV ONE (19:55)
[2022-04-05 20:04] LABS: BASO % 0.2 % (0.0-1.0); EOS # 0.3 10^3/uL (0.0-0.5); EOS % 2.8 % (0.0-3.0); HEMATOCRIT 40.6 % (36.0-47.0); HEMOGLOBIN 13.6 g/dl (12.0-15.5); LYMPH # 2.6 10^3/uL (1.5-5.0); LYMPH % 28.3 % (24.0-44.0); MEAN CORPUSCULAR HEMOGLOBIN 30.9 pg (27.0-33.0); MEAN CORPUSCULAR HGB CONC 33.5 g/dl (32.0-36.5); MEAN CORPUSCULAR VOLUME 92.3 fl (80.0-96.0); MONO # 0.4 10^3/uL (0.0-0.8); MONO % 4.1 % (2.0-8.0); NEUTROPHILS % 64.3 % (36.0-66.0); PLATELET COUNT, AUTOMATED 258 10^3/uL (150-450); WHITE BLOOD COUNT 9.3 10^3/uL (4.0-10.0)
[2022-04-05 20:16] LABS: INR 0.91; PROTHROMBIN TIME 12.5 SECONDS (12.5-14.5)
[2022-04-05 20:17] LABS: PARTIAL THROMBOPLASTIN TIME 30.3 SECONDS (24.8-34.2)
[2022-04-05 20:26] LABS: ALBUMIN 3.2 G/DL (3.2-5.2); ALKALINE PHOSPHATASE 52 U/L (46-116); ALT/SGPT 11 U/L (7.0-40); AST/SGOT 12 U/L (<34); BILIRUBIN,TOTAL 0.4 MG/DL (0.3-1.2); BLOOD UREA NITROGEN 6 MG/DL (9-23); CARBON DIOXIDE LEVEL 19 MMOL/L (20-31); CHLORIDE LEVEL 107 MMOL/L (98-107); CREATININE FOR GFR 0.57 MG/DL (0.55-1.30); GLOMERULAR FILTRATION RATE > 60.0 (>60); GLUCOSE, FASTING 86 MG/DL (60-100); POTASSIUM SERUM 3.9 MMOL/L (3.5-5.1); SODIUM LEVEL 138 MMOL/L (136-145); TOTAL PROTEIN 6.3 G/DL (5.7-8.2)
[2022-04-05] MEDS ORDERED: METHYLERGONOVINE MALEATE 0.2 MG/ML VIAL (J2210) IM STA (20:42)
[2022-04-05] MEDS ORDERED: KETOROLAC 30 MG/ML 1ML VIAL IV ONE (21:05)
[2022-04-05 22:49] LABS: RSV AMPLIFICATION NEGATIVE (NEGATIVE)
[2022-04-05 23:15] VITALS: BP 119/82
[2022-04-05] MEDS ORDERED: traMADol 50 MG TAB (HOME DOSE PACK) PO ONE (23:15)
[2022-04-05 23:38] LABS: HCG, SERUM QUANTITATIVE 5055.9 MIU/ML (<4.2)
== END 2022-04-06 00:20 | disposition home or self-care (01) ==
LOC: EDBD 19:20 → M ED 19:20
DX: O02.1 Missed abortion (principal); N93.9 Abnormal uterine and vaginal bleeding, unspecified; J45.909 Unspecified asthma, uncomplicated; Z87.442 Personal history of urinary calculi; Z79.83 Long term (current) use of bisphosphonates; Z88.2 Allergy status to sulfonamides; Z88.1 Allergy status to other antibiotic agents; Z88.8 Allergy status to other drugs, medicaments and biological substances
CPT/HCPCS: 76801; 80053; 84702; 85025; 85610; 85730; 86850; 86900; 86901; 86920; 87631; 96374; 96375; 99285; J2210

== ENCOUNTER → 2022-04-19 | Outpatient (REF) | payer OTHER, MEDICARE | LOC: M LAB REF 16:32 | PROVIDERS: ATTEND Physician Assistant | DX: Z79.891 Long term (current) use of opiate analgesic (principal) ==

== ENCOUNTER → 2022-04-24 | Outpatient (CLI) | payer OTHER | LOC: M PLALAB 14:13 | PROVIDERS: ATTEND Advanced Practice Midwife | DX: O03.9 Complete or unspecified spontaneous abortion without complication (principal) ==

== ENCOUNTER → 2022-05-13 | Outpatient (CLI) | payer OTHER | LOC: M PLALAB 12:27 | PROVIDERS: ATTEND Advanced Practice Midwife | DX: O03.9 Complete or unspecified spontaneous abortion without complication (principal) ==

== ENCOUNTER → 2022-10-30 | Outpatient (REF) | payer OTHER ==
[~2022-10-30] MED LIST changes: -FLUO10TA2 PO; +FLUO1TAB PO
== END ==
LOC: M LAB REF 17:04
PROVIDERS: ATTEND Physician Assistant
DX: Z79.899 Other long term (current) drug therapy (principal)

== ENCOUNTER 2023-05-12 20:49 | Emergency (ER) | payer OTHER ==
[~2023-05-12 20:49] MED LIST changes: -EFFE37.5 PO; +EFFE37.52 PO; +LORA-1041; -LORA-674; +MECL-209 PO; -MECL1TAB31 PO
[2023-05-13 00:16] LABS: BASO % 0.2 % (0.0-1.0); EOS % 0.3 % (0.0-3.0); HEMATOCRIT 44.3 % (36.0-47.0); HEMOGLOBIN 14.3 g/dl (12.0-15.5); LYMPH # 1.5 10^3/uL (1.5-5.0); LYMPH % 9.8 % (24.0-44.0); MEAN CORPUSCULAR HEMOGLOBIN 28.8 pg (27.0-33.0); MEAN CORPUSCULAR HGB CONC 32.3 g/dl (32.0-36.5); MEAN CORPUSCULAR VOLUME 89.3 fl (80.0-96.0); MONO # 0.4 10^3/uL (0.0-0.8); MONO % 2.5 % (2.0-8.0); NEUTROPHILS # 12.8 10^3/uL (1.5-8.5); NEUTROPHILS % 86.7 % (36.0-66.0); PLATELET COUNT, AUTOMATED 284 10^3/uL (150-450); RED BLOOD COUNT 4.96 10^6/uL (4.00-5.40); WHITE BLOOD COUNT 14.8 10^3/uL (4.0-10.0)
[2023-05-13] MEDS ORDERED: ONDANSETRON 4MG 2ML VIAL IV ONE (00:35)
[2023-05-13] MEDS: MORPHINE 4 MG/ML 1ML VIAL IV PRN ×2 (00:40→01:24)
[2023-05-13 00:42] LABS: LIPASE 36 U/L (12-53)
[2023-05-13 00:44] LABS: ALBUMIN 3.8 G/DL (3.2-5.2); ALKALINE PHOSPHATASE 75 U/L (46-116); ALT/SGPT 16 U/L (7.0-40); AST/SGOT 11 U/L (<34); BILIRUBIN,DIRECT 0.2 MG/DL (<0.4); BILIRUBIN,TOTAL 0.6 MG/DL (0.3-1.2); BLOOD UREA NITROGEN 12 MG/DL (9-23); CALCIUM LEVEL 9.7 MG/DL (8.5-10.1); CARBON DIOXIDE LEVEL 20 MMOL/L (20-31); CHLORIDE LEVEL 111 MMOL/L (98-107); CREATININE FOR GFR 0.85 MG/DL (0.55-1.30); GLOMERULAR FILTRATION RATE > 60.0 (>60); GLUCOSE, FASTING 116 MG/DL (60-100); POTASSIUM SERUM 4.2 MMOL/L (3.5-5.1); SODIUM LEVEL 141 MMOL/L (136-145); TOTAL PROTEIN 7.2 G/DL (5.7-8.2)
[2023-05-13] MEDS ORDERED: KETOROLAC 30 MG/ML 1ML VIAL IV ONE (02:30)
[2023-05-13] MEDS ORDERED: HYDROMORPHONE HCL 0.5 MG/ 0.5 ML SYRINGE IV PRN (02:55)
[2023-05-13] MEDS ORDERED: TAMSULOSIN 0.4 MG CAP PO ONE (03:00)
[2023-05-13] MEDS ORDERED: PERC5TAB12 PO (04:48)
[2023-05-13] MEDS ORDERED: FLOM0.4C39 PO (04:48)
[2023-05-13] MEDS ORDERED: KETO10TAB PO (04:48)
[2023-05-13] MEDS ORDERED: OXYCODONE/APAP 5MG/325MG(HOME DOSE PACK) PO ONE (04:50)
[2023-05-13 05:30] VITALS: BP 131/60; TEMP 98; O2SAT 98
== END 2023-05-13 05:35 | disposition home or self-care (01) ==
LOC: M ED 20:49
DX: N20.1 Calculus of ureter (principal); F12.10 Cannabis abuse, uncomplicated; F10.10 Alcohol abuse, uncomplicated; Z88.2 Allergy status to sulfonamides; Z88.8 Allergy status to other drugs, medicaments and biological substances; Z79.1 Long term (current) use of non-steroidal anti-inflammatories (NSAID); Z79.899 Other long term (current) drug therapy
CPT/HCPCS: 74176; 80048; 80076; 81001; 83605; 83690; 84702; 85025; 87086; 96374; 96375; 96376; 99284; J1170; J1885; J2405

== ENCOUNTER 2023-05-16 13:33 | Emergency (ER) | payer OTHER ==
[~2023-05-16] VITALS: Ht 167.6 cm; Wt 139.1 kg
[~2023-05-16 13:33] MED LIST changes: +FLOM0.4C39 PO
[2023-05-16] MEDS ORDERED: ONDANSETRON 4MG 2ML VIAL IV ONE (14:35)
[2023-05-16] MEDS ORDERED: diazePAM 10MG/2ML SYRINGE IV ONE (14:35)
[2023-05-16] MEDS ORDERED: KETOROLAC 30 MG/ML 1ML VIAL IV ONE (14:35)
[2023-05-16] MEDS ORDERED: NS 1,000 ML IV SCH (14:35)
[2023-05-16 15:00] LABS: BASO % 0.3 % (0.0-1.0); EOS # 0.2 10^3/uL (0.0-0.5); EOS % 2.2 % (0.0-3.0); HEMATOCRIT 43.1 % (36.0-47.0); HEMOGLOBIN 14.2 g/dl (12.0-15.5); LYMPH # 2.3 10^3/uL (1.5-5.0); LYMPH % 21.6 % (24.0-44.0); MEAN CORPUSCULAR HEMOGLOBIN 29.3 pg (27.0-33.0); MEAN CORPUSCULAR HGB CONC 32.9 g/dl (32.0-36.5); MEAN CORPUSCULAR VOLUME 88.9 fl (80.0-96.0); MONO # 0.7 10^3/uL (0.0-0.8); MONO % 6.2 % (2.0-8.0); NEUTROPHILS # 7.5 10^3/uL (1.5-8.5); NEUTROPHILS % 69.3 % (36.0-66.0); PLATELET COUNT, AUTOMATED 272 10^3/uL (150-450); RED BLOOD COUNT 4.85 10^6/uL (4.00-5.40); WHITE BLOOD COUNT 10.8 10^3/uL (4.0-10.0)
[2023-05-16 15:29] LABS: ALBUMIN 3.7 G/DL (3.2-5.2); BILIRUBIN,DIRECT 0.1 MG/DL (<0.4); BILIRUBIN,TOTAL 0.4 MG/DL (0.3-1.2); TOTAL PROTEIN 7.3 G/DL (5.7-8.2)
[2023-05-16 16:11] LABS: BLOOD UREA NITROGEN 10 MG/DL (9-23); CALCIUM LEVEL 9.2 MG/DL (8.5-10.1); CARBON DIOXIDE LEVEL 22 MMOL/L (20-31); CHLORIDE LEVEL 106 MMOL/L (98-107); GLOMERULAR FILTRATION RATE > 60.0 (>60); GLUCOSE, FASTING 90 MG/DL (60-100); POTASSIUM SERUM 4.6 MMOL/L (3.5-5.1); SODIUM LEVEL 138 MMOL/L (136-145)
[2023-05-16 17:01] VITALS: BP 134/79; TEMP 99; O2SAT 99
== END 2023-05-16 17:10 | disposition home or self-care (01) ==
LOC: M ED 13:33
DX: N13.2 Hydronephrosis with renal and ureteral calculous obstruction (principal); Z90.49 Acquired absence of other specified parts of digestive tract; Z88.2 Allergy status to sulfonamides; Z88.8 Allergy status to other drugs, medicaments and biological substances; F17.200 Nicotine dependence, unspecified, uncomplicated; Z79.899 Other long term (current) drug therapy
CPT/HCPCS: 74176; 80047; 80048; 80076; 81001; 83690; 84702; 85025; 87086; 96361; 96374; 96375; 99284; J1885; J2405; J3360

== ENCOUNTER 2023-12-12 03:29 | Emergency (ER) | payer OTHER ==
[~2023-12-12] VITALS: Ht 167.6 cm; Wt 140.9 kg
[~2023-12-12 03:29] MED LIST changes: +ONDA-282; +ONDA-282 PO; -ONDA4TAB6; -ONDA4TAB6 PO
[2023-12-12] MEDS ORDERED: ISOVUE-370 76% 100ML VIAL As Ordered ONE (04:08)
[2023-12-12] MEDS: ONDANSETRON 4MG 2ML VIAL IV ONE (04:08)
[2023-12-12 04:13] LABS: BASO % 0.2 % (0.0-1.0); EOS # 0.3 10^3/uL (0.0-0.5); EOS % 3.9 % (0.0-3.0); HEMATOCRIT 43.9 % (36.0-47.0); HEMOGLOBIN 14.1 g/dl (12.0-15.5); LYMPH # 2.9 10^3/uL (1.5-5.0); LYMPH % 35.3 % (24.0-44.0); MEAN CORPUSCULAR HEMOGLOBIN 29.1 pg (27.0-33.0); MEAN CORPUSCULAR HGB CONC 32.1 g/dl (32.0-36.5); MEAN CORPUSCULAR VOLUME 90.5 fl (80.0-96.0); MONO # 0.4 10^3/uL (0.0-0.8); MONO % 4.6 % (2.0-8.0); NEUTROPHILS # 4.6 10^3/uL (1.5-8.5); NEUTROPHILS % 55.8 % (36.0-66.0); PLATELET COUNT, AUTOMATED 257 10^3/uL (150-450); RED BLOOD COUNT 4.85 10^6/uL (4.00-5.40); WHITE BLOOD COUNT 8.3 10^3/uL (4.0-10.0)
[2023-12-12 04:33] LABS: LIPASE 21 U/L (12-53)
[2023-12-12 04:34] LABS: AMYLASE 51 U/L (30-118)
[2023-12-12 04:35] LABS: ALBUMIN 3.5 G/DL (3.2-5.2); ALKALINE PHOSPHATASE 74 U/L (46-116); ALT/SGPT 24 U/L (7.0-40); AST/SGOT 23 U/L (<34); BILIRUBIN,DIRECT 0.3 MG/DL (<0.4); BILIRUBIN,TOTAL 0.7 MG/DL (0.3-1.2); BLOOD UREA NITROGEN 8 MG/DL (9-23); CALCIUM LEVEL 9.3 MG/DL (8.5-10.1); CARBON DIOXIDE LEVEL 20 MMOL/L (20-31); CHLORIDE LEVEL 108 MMOL/L (98-107); CREATININE FOR GFR 0.79 MG/DL (0.55-1.30); GLOMERULAR FILTRATION RATE > 60.0 (>60); GLUCOSE, FASTING 100 MG/DL (60-100); SODIUM LEVEL 138 MMOL/L (136-145); TOTAL PROTEIN 6.5 G/DL (5.7-8.2)
[2023-12-12] MEDS: METOCLOPRAMIDE INJ 10MG/2ML VIAL IV ONE (05:14)
[2023-12-12] MEDS: KETOROLAC 30 MG/ML 1ML VIAL IV ONE (06:03)
[2023-12-12] MEDS: NS 1,000 ML IV ONE (06:56)
[2023-12-12] MEDS ORDERED: MIRA3350 PO (07:09)
[2023-12-12 07:34] VITALS: BP 154/72; TEMP 96.9; O2SAT 100
== END 2023-12-12 08:21 | disposition home or self-care (01) ==
LOC: M ED 03:29 → EDBD 03:29 → M ED 08:21
DX: R10.9 Unspecified abdominal pain (principal); K59.00 Constipation, unspecified; K76.89 Other specified diseases of liver; M51.34 Other intervertebral disc degeneration, thoracic region; G43.909 Migraine, unspecified, not intractable, without status migrainosus; Z90.49 Acquired absence of other specified parts of digestive tract; Z88.2 Allergy status to sulfonamides; Z88.8 Allergy status to other drugs, medicaments and biological substances; Z87.442 Personal history of urinary calculi; Z79.899 Other long term (current) drug therapy
CPT/HCPCS: 36415; 74021; 74177; 80047; 80048; 80076; 81001; 82150; 83605; 83690; 85025; 86850; 86900; 86901; 87040; 87077; 87186; 93041; 96361; 96374; 96375; 99284; J1885; J2405; J2765; Q9967

== ENCOUNTER → 2024-07-01 | Outpatient (REF) | payer OTHER ==
[~2024-07-01] MED LIST changes: +MIRA3350 PO
[2024-07-01 16:06] LABS: ALBUMIN 3.6 G/DL (3.2-5.2); ALKALINE PHOSPHATASE 72 U/L (35-104); ALT/SGPT 20 U/L (7.0-40); AST/SGOT 16 U/L (<34); BILIRUBIN,TOTAL 0.5 MG/DL (0.3-1.2); BLOOD UREA NITROGEN 10 MG/DL (9-23); CALCIUM LEVEL 9.4 MG/DL (8.5-10.1); CARBON DIOXIDE LEVEL 25 MMOL/L (20-31); CHLORIDE LEVEL 108 MMOL/L (98-107); CHOLESTEROL LEVEL 146 MG/DL (<200); CHOLESTEROL RISK RATIO 3.13 (<5); CREATININE FOR GFR 0.69 MG/DL (0.55-1.30); FREE T4 0.99 NG/DL (0.89-1.76); GLOMERULAR FILTRATION RATE > 60.0 (>60); GLUCOSE, FASTING 101 MG/DL (60-100); HDL CHOLESTEROL 46.5 MG/DL (>40); LDL CHOLESTEROL 88.9 MG/DL (<100); NON-HDL-C 99.5 MG/DL; POTASSIUM SERUM 4.4 MMOL/L (3.5-5.1); SODIUM LEVEL 141 MMOL/L (136-145); THYROID STIMULATING HORMONE 1.258 uIU/ML (0.55-4.78); TOTAL PROTEIN 6.8 G/DL (5.7-8.2); TRIGLYCERIDES LEVEL 53 MG/DL (<150)
[2024-07-01 16:30] LABS: HEMOGLOBIN A1c 4.4 % (4.0-6.0)
== END ==
LOC: M LAB REF 15:04
PROVIDERS: ATTEND Family Medicine Addiction Medicine
DX: R03.0 Elevated blood-pressure reading, without diagnosis of hypertension (principal)